=== PATIENT | male | born 1985 | race Caucasian/White ===

== ENCOUNTER 2021-03-02 07:32 | Emergency (ER) | payer BC, OTHER, SELFPAY ==
--- NOTE | ~2021-03-02 | CT_ITS ---
EXAMINATION: CT ABDOMEN AND PELVIS WITH CONTRAST CLINICAL INFORMATION: Left lower quadrant tenderness. COMPARISON: None TECHNIQUE: Multidetector volumetric images were obtained from the superior aspect of the liver through the pubic symphysis following administration 85 mL of Omnipaque 350 intravenous contrast. Sagittal and coronal reformatted images were obtained on the technologist's workstation. Oral contrast: No This CT examination was performed using dose optimization techniques as appropriate, variously including the following: *Automated exposure control *Adjustment of mA and/or kV according to patient size (this includes techniques or standardized protocols for targeted exams where dose is matched to indication/reason for exam; i.e. extremities or head) *Use of iterative reconstruction technique DLP: 861 mGy-cm FINDINGS: LUNG BASES: The lung bases are clear. The heart size is normal. LIVER, GALLBLADDER, AND BILIARY TREE: The liver is normal in size, shape, and decreased attenuation. No focal hepatic lesion or biliary ductal dilatation is present. The gallbladder is unremarkable with no evidence of radiopaque gallstones, gallbladder wall thickening, or obvious pericholecystic inflammatory changes. PANCREAS: Unremarkable. SPLEEN: Unremarkable. ADRENAL GLANDS: Unremarkable. KIDNEYS AND URETERS: The kidneys are normal in size, shape, and attenuation. No hydronephrosis, hydroureter, or calculi seen. No perinephric stranding. BLADDER: The bladder is distended. GASTROINTESTINAL TRACT: There is scattered colonic diverticulosis with mild mural thickening junction of sigmoid and descending colon with pericolic fat stranding most suggestive of diverticulitis. There is no no free air or fluid collection to suspect any perforation. There is no bowel obstruction. There is minimal stool and gas in the right colon. The small bowel loops are normal caliber. The stomach is nondistended and appears unremarkable. The appendix is normal caliber. ABDOMINAL WALL: There is small umbilical hernia containing fat. LYMPH NODES: Normal. VASCULAR: Unremarkable. PELVIC VISCERA: Unremarkable. OSSEOUS STRUCTURES: No lytic or sclerotic process seen CT/CT abdomen pelvis w con IMPRESSION: Scattered colonic diverticulosis with sigmoid/descending colon diverticulitis. No free air, abscess or bowel obstruction seen at this time.
[2021-03-02 07:54] VITALS: BP 146/91; PULSE 99; RESP 16; TEMP 36.9; O2SAT 96; BMI 38.7
--- NOTE | 2021-03-02 08:42 | ED.GENADULT ---
HPI - General Adult General Chief complaint: Abdominal Pain Stated complaint: LOWER ABD PAIN Time Seen by Provider: 03/02/21 08:27 Source: patient Mode of arrival: ambulatory Limitations: no limitations History of Present Illness HPI narrative: 36-year-old male who presents the emergency department for evaluation of left lower quadrant abdominal pain. Patient states that the pain started yesterday morning and was mild. He states that it was an intermittent, dull aching sensation. The pain was initially mild to moderate intensity and the patient had some leftover ciprofloxacin and Flagyl from about a diverticulitis 2 months prior so he took this medication. He states that overnight his pain became worse to the point where pain is now a constant, dull ache, with a burning sensation, worse with movement, and is 8/10. He denied fever, chills, chest pain, shortness of breath. The patient had nausea but no vomiting. He denied any change in his bowel movements. He denied frequency, urgency or dysuria. The patient states this 1st bout of diverticulitis was in 2013, at that time he had a micro perforation was hospitalized for 5 days, they recommended surgery but he elected not have a surgical intervention. He had a 2nd episode of diverticulitis 2 months prior which was treated by his PCP with metronidazole and ciprofloxacin. Related Data Previous Rx's Medication Instructions Recorded morphine 15 mg PO Q4-6H PRN #14 tab 03/02/21 Allergies Allergy/AdvReac Type Severity Reaction Status Date / Time No Known Allergies Allergy Unverified 08/03/20 15:20 [No Known Allergies*] Review of Systems Review of Systems: Yes all other systems are reviewed and are negative [facility] Past Medical History [facility] Narrative: Patient has a history of hypertension which is not treated with medications and hyperlipidemia. He has had no abdominal surgeries. He denies tobacco use. He states that he drinks alcohol on the weekends, he states he will drink anywhere from 3-6 beers per day on the weekends. He denies drug use. Social History Social History Alcohol intake: never Smoking Status: Never smoker Use of substances other than those prescribed or required for medical reasons: No Advance Directives: No Advance Directives Information Provided: No Physical Exam Vital Signs: Vital Signs: Last Vital Signs Temp 98.4 F 03/02/21 08:50 Pulse 82 03/02/21 11:11 Resp 03/02/21 11:11 BP 126/87 03/02/21 11:11 Pulse Ox 98 03/02/21 11:11 Body Mass Index 38.7 Const: General: cooperative and healthy appearing Orientation/consciousness: oriented to person and oriented to place Limitations: no limitations HENMT: Head: Yes normal to inspection, Yes normocephalic and Yes atraumatic Ears: external ears normal General nose exam: Normal external nose present Face and sinus: Yes normal facial exam Mouth: Normal oral and palatal mucosa present Throat: Yes posterior oropharynx normal Eyes: Periorbital: periorbital findings normal Eyelids: Yes eyelids normal Conjunctivae: conjunctivae normal Sclerae: sclerae normal Corneas: corneas normal Pupils: Equal, round and reactive pupils present Direct Ophthalmoscopy: normal light reflex Neck: Neck: Yes full ROM, Yes no lymphadenopathy, Yes no meningeal signs, Yes trachea midline and Yes supple Chest: Chest palpation & inspection: normal inspection of the chest and normal palpation of entire chest wall Resp: Effort & Inspection: normal respiratory effort and able to speak in complete sentences Auscultation: clear to auscultation bilaterally Cardio: Rate: regular rate Rhythm: regular rhythm Heart sounds: S1 normal heart sound present, S2 normal heart sound present and no murmurs GI: Inspection: Yes normal to inspection Palpation (GI): Soft to palpation, Tenderness to palpation present (GI) in the LLQ (Moderate to severe, no rebound), no guarding, not rigid and No hepatosplenomegaly present : General: Yes no CVA tenderness Back/Spine/Pelvis: Back: no CVA tenderness Cervical Spine: normal cervical lordosis Thoracic/Lumbar Spine: thoracic and lumbar spine normal to inspection Skin: Lesions: no lesions Rashes: no rashes Wounds: no wounds Neuro: General: oriented to person, oriented to place and no meningeal signs Cranial nerves: Yes CN's II-XII intact bilaterally and Yes Equal, round and reactive pupils present Cognition (Neuro): normal cognition Motor exam (neuro): 5/5 motor strength present throughout Extrem: General: Yes normal to inspection and Yes full ROM Psych: Appearance: well kempt Mental Status: mental status grossly normal Speech and movement: Normal speech and movement present Affect: normal affect Attitude: cooperative Thought process: Normal thought process present Thought content: Normal thought content present Course Course Course Narrative: 36-year-old male with a history of diverticulitis with microperforation the past who presents the emergency department for evaluation left lower quadrant pain x2 days which got worse yesterday evening and this morning. Physical examination revealed that he was slightly hypertensive with a blood pressure of 146/91 and afebrile. He does have significant left lower quadrant tenderness. I am concerned that he may have a perforation versus abscess. I did order a CBC, CMP, lipase, lactic acid, blood cultures x2. Patient will be treated with normal saline IV x1 L, his pain and nausea be treated with Toradol 30 mg IV and Zofran 4 mg IV. Given my high suspicion for infectious process, the patient will be treated with Levaquin 500 mg IV and Flagyl 500 mg IV. 1154: The patient's laboratory evaluation revealed a [place] [address], CT scan of the abdomen pelvis with IV contrast did not reveal any clear cause for his pain, he does have diverticulosis with no diverticulitis/inflammatory changes. The patient did get some improvement with Toradol but required a dose of morphine 4 mg IV. Patient still has left lower quadrant tenderness. My impression is that the patient does have acute diverticulitis and I will treat him with ciprofloxacin 500 mg twice a day for 10 days and Flagyl 500 mg 3 times a day for 10 days. He is advised to take Tylenol for his pain and for pain not relieved by Tylenol is given a prescription for morphine. He was given verbal and printed instructions on diverticulitis and discharged home. Medical Decision Making Lab Data Result diagrams: 03/02/21 08:46 03/02/21 08:46 Labs: Lab Results 03/02/21 03/02/21 03/02/21 Range/Units 08:46 08:46 08:46 WBC 13.2 H (4.8-10.8) X10*3/uL RBC 4.61 (4.60-5.80) X10*6/uL Hgb 13.5 L (14.0-18.0) g/dl Hct 39.7 L (42-52) % MCV 86.1 (80-98) fL MCH 29.3 (27.0-33.0) pg MCHC 34.0 (31.0-36.0) g/dl RDW 13.2 (11.0-16.0) % Plt Count 273 (160-400) X10*3/uL MPV 9.1 L (9.4-12.4) fL Immature Gran % (Auto) 0.5 H (0.0-0.4) % Neut % (Auto) 80.6 H (45-73) % Lymph % (Auto) 12.8 L (20-40) % [place] % (Auto) 5.2 (2-11) % Eos % (Auto) 0.4 (0-4) % Baso % (Auto) 0.5 (0-2) % Lymph # (Auto) 1.7 (1.2-4.9) X10*3/uL [place] # (Auto) 0.7 (0.1-1.2) X10*3/uL Eos # (Auto) 0.1 (0.0-0.4) X10*3/uL Baso # (Auto) 0.1 (0.0-0.2) X10*3/uL Abs Immat Gran (auto) 0.06 H (0.00-0.03) X10*3/uL Absolute Neuts (auto) 10.7 H (2.0-8.3) X10*3/uL Absolute Nucleated RBC 0.000 (0.0-0.012) X10*3/uL Nucleated RBC % (auto) 0.0 (0.0-0.2) /100WBC PT 12.5 (10.8-13.0) SEC INR 1.1 (0.9-1.1) APTT 42.8 H (24.1-38.0) SEC Sodium 140 (135-145) mmol/L Potassium 4.3 (3.3-5.1) mmol/L Chloride 106 (96-108) mmol/L Carbon Dioxide 27 (22-29) mmol/L Anion Gap 11 L (12-20) BUN 13 (9-16) mg/dL Creatinine 0.96 (0.5-1.4) mg/dL Estim Creat Clear Calc 120.7 Estimated GFR > 60 Random Glucose 104 (60-115) mg/dL Lactic Acid (0.5-2.0) mmol/L Calcium 9.2 (8.4-10.2) mg/dL Total Bilirubin 0.6 (0.0-1.0) mg/dL AST 26 (5-37) U/L ALT 60 H (0-40) U/L Alkaline Phosphatase 50 (39-117) U/L Total Protein 7.3 (6.5-8.0) g/dL Albumin 4.4 (3.5-5.0) g/dL Lipase 28 (8-78) U/L Urine Color Urine Appearance Urine pH (5.0-8.0) Ur Specific [place] (1.005-1.025) Urine Protein (NEG-TRACE) MG/DL Urine Glucose (UA) (NEG) MG/DL Urine Ketones (NEG) MG/DL Urine Blood (NEG) Urine Nitrite (NEG) Ur Leukocyte Esterase (NEG) COVID-19 ([facility]) (Negative) COVID-19 Clin Com 03/02/21 03/02/21 03/02/21 Range/Units 08:46 08:52 10:17 WBC (4.8-10.8) X10*3/uL RBC (4.60-5.80) X10*6/uL Hgb (14.0-18.0) g/dl Hct (42-52) % MCV (80-98) fL MCH (27.0-33.0) pg MCHC (31.0-36.0) g/dl RDW (11.0-16.0) % Plt Count (160-400) X10*3/uL MPV (9.4-12.4) fL Immature Gran % (Auto) (0.0-0.4) % Neut % (Auto) (45-73) % Lymph % (Auto) (20-40) % [place] % (Auto) (2-11) % Eos % (Auto) (0-4) % Baso % (Auto) (0-2) % Lymph # (Auto) (1.2-4.9) X10*3/uL [place] # (Auto) (0.1-1.2) X10*3/uL Eos # (Auto) (0.0-0.4) X10*3/uL Baso # (Auto) (0.0-0.2) X10*3/uL Abs Immat Gran (auto) (0.00-0.03) X10*3/uL Absolute Neuts (auto) (2.0-8.3) X10*3/uL Absolute Nucleated RBC (0.0-0.012) X10*3/uL Nucleated RBC % (auto) (0.0-0.2) /100WBC PT (10.8-13.0) SEC INR (0.9-1.1) APTT (24.1-38.0) SEC Sodium (135-145) mmol/L Potassium (3.3-5.1) mmol/L Chloride (96-108) mmol/L Carbon Dioxide (22-29) mmol/L Anion Gap (12-20) BUN (9-16) mg/dL Creatinine (0.5-1.4) mg/dL Estim Creat Clear Calc Estimated GFR Random Glucose (60-115) mg/dL Lactic Acid 1.2 (0.5-2.0) mmol/L Calcium (8.4-10.2) mg/dL Total Bilirubin (0.0-1.0) mg/dL AST (5-37) U/L ALT (0-40) U/L Alkaline Phosphatase (39-117) U/L Total Protein (6.5-8.0) g/dL Albumin (3.5-5.0) g/dL Lipase (8-78) U/L Urine Color YELLOW Urine Appearance CLEAR Urine pH 6.0 (5.0-8.0) Ur Specific [place] 1.020 (1.005-1.025) Urine Protein NEG (NEG-TRACE) MG/DL Urine Glucose (UA) NEG (NEG) MG/DL Urine Ketones NEG (NEG) MG/DL Urine Blood NEG (NEG) Urine Nitrite NEG (NEG) Ur Leukocyte Esterase NEG (NEG) COVID-19 ([facility]) Negative (Negative) COVID-19 Clin Com See Note Discharge Plan Discharge Clinical Impression: Diverticulitis Patient Disposition: Home, Self-Care Instructions: Diverticulitis (ED) Additional Instructions: Your laboratory evaluation revealed a slight elevation in the white blood cell count otherwise was unremarkable. The CT scan of your abdomen pelvis with IV contrast did not reveal any clear evidence for diverticulitis, you do have diverticulosis. Given your presentation, your physical examination and the fact that she has had diverticulitis in the past, I believe that you symptoms are consistent with diverticulitis despite the negative CT scan. I am going to treat you with 2 antibiotics. Take ciprofloxacin 500 mg, 1 pill every 12 hours for 10 days. Take Flagyl (metronidazole) 500 mg, 1 pill every 6 hours while awake (3 times a day) for 10 days. Take Tylenol (acetaminophen) 500 mg pills, 2 pills every 4 to 6 hours as needed for pain. For pain not relieved by Tylenol take morphine 15 mg pills, 1 pill every 4 hours as needed for pain. Morphine is a narcotic medication. This can cause sleepiness, do not drive or work while taking this medication. Narcotic medications can be addicting, if your concerned about addiction do not get this medication filled or you can ask the pharmacist for less pills than prescribed. Follow-up with your doctor in 2 days. Please return to the emergency department if your symptoms get worse or if you develop any symptoms that are concerning to you. Prescriptions: New morphine 15 mg tablet 15 mg PO Q4-6H PRN (Reason: pain) Qty: 14 RF: 0
[2021-03-02 08:50] VITALS: BP 146/91; PULSE 99; RESP 16; TEMP 36.9; O2SAT 96
[2021-03-02 08:51] LABS: MANUAL DIFF FLAG NO
[2021-03-02 08:58] LABS: INTERNATIONAL NORM RATIO 1.1 (0.9-1.1); Prothrombin Time 12.5 SEC (10.8-13.0)
[2021-03-02] MEDS: Ketorolac Tromethamine 30 MG/ML VIAL IVPUSH (09:01)
[2021-03-02] MEDS: levoFLOXacin/D5W 750 MG/150 ML PIGGYBACK 100 MG IV (09:02)
[2021-03-02] MEDS: ondansetron HCL 4 MG/2 ML VIAL IVPUSH (09:02)
[2021-03-02] MEDS: 0.9 % Sodium Chloride 1,000 ML 999 ML IV (09:02)
[2021-03-02 09:08] LABS: Lactic Acid 1.2 mmol/L (0.5-2.0)
[2021-03-02 09:09] LABS: Basophils Absolute Auto 0.1 X10*3/uL (0.0-0.2); Basophils Percent Auto 0.5 % (0-2); Eosinophils Absolute Auto 0.1 X10*3/uL (0.0-0.4); Eosinophils Percent Auto 0.4 % (0-4); Hematocrit 39.7 % (42-52); Hemoglobin 13.5 g/dl (14.0-18.0); Imm Gran Abs Auto 0.06 X10*3/uL (0.00-0.03); Imm Gran Pct Auto 0.5 % (0.0-0.4); Lymphocytes Absolute Auto 1.7 X10*3/uL (1.2-4.9); Lymphocytes Percent Auto 12.8 % (20-40); Mean Corpuscular Hemoglobin 29.3 pg (27.0-33.0); Mean Corpuscular Volume 86.1 fL (80-98); Mean Platelet Volume 9.1 fL (9.4-12.4); Monocytes Absolute Auto 0.7 X10*3/uL (0.1-1.2); Monocytes Percent Auto 5.2 % (2-11); Neutrophils Absolute Auto 10.7 X10*3/uL (2.0-8.3); Neutrophils Percent Auto 80.6 % (45-73); Platelet Count 273 X10*3/uL (160-400); Red Blood Count 4.61 X10*6/uL (4.60-5.80); Red Cell Distribution Width 13.2 % (11.0-16.0); White Blood Count 13.2 X10*3/uL (4.8-10.8)
[2021-03-02 09:11] LABS: Partial Thromboplastin Time 42.8 SEC (24.1-38.0)
[2021-03-02 09:14] LABS: Alanine Aminotransferase 60 U/L (0-40); Albumin Level 4.4 g/dL (3.5-5.0); Alkaline Phosphatase 50 U/L (39-117); Anion Gap 11 (12-20); Aspartate Amino Transferase 26 U/L (5-37); Bilirubin Total 0.6 mg/dL (0.0-1.0); Blood Urea Nitrogen 13 mg/dL (9-16); Calcium 9.2 mg/dL (8.4-10.2); Carbon Dioxide 27 mmol/L (22-29); Chloride 106 mmol/L (96-108); Creatinine Clr Calc Pharmacy 120.7; Estimated Glomerular Filt Rate > 60; Glucose Random 104 mg/dL (60-115); Potassium 4.3 mmol/L (3.3-5.1); Sodium 140 mmol/L (135-145); Total Protein 7.3 g/dL (6.5-8.0)
[2021-03-02 09:31] LABS: COVID-19 Test Negative (Negative)
[2021-03-02] MEDS: iohexoL 350 MG/ML 100 ML INFUS..BTL IV (09:58)
[2021-03-02] MEDS: Morphine Sulfate 4 MG/ML CARTRIDGE IVPUSH (10:13)
[2021-03-02 10:24] LABS: Glucose Urine UA NEG (NEG); Leukocyte Esterase Urine NEG (NEG); Nitrite Urine NEG (NEG); Urine Blood NEG (NEG); Urine Ketones NEG (NEG); Urine Protein NEG (NEG-TRACE)
[2021-03-02 10:26] LABS: Appearance Urine CLEAR; Color Urine YELLOW
[2021-03-02 10:41] LABS: Lipase 28 U/L (8-78)
[2021-03-02] MEDS: metroNIDAZOLE/NS 500 MG/100 ML PIGGYBACK 100 MG IV (11:05)
[2021-03-02 11:09] VITALS: BP 126/87; PULSE 82; RESP 16
[2021-03-02 11:11] VITALS: BP 126/87; PULSE 82; RESP 16; O2SAT 98
== END 2021-03-02 12:32 | disposition home or self-care (01) ==
PROVIDERS: Emergency Provider Emergency Medicine Emergency Medical Services; PCP Family Medicine
DX: K57.32 Diverticulitis of large intestine without perforation or abscess without bleeding (principal); R10.32 Left lower quadrant pain; Z79.899 Other long term (current) drug therapy; Z20.822 Contact with and (suspected) exposure to COVID-19
CPT/HCPCS: 36415; 74177; 80053; 81003; 83605; 83690; 85025; 85610; 85730; 87040; 87635; 96365; 96375; 99284; J1885; J1956; J2270; J2405; Q9967

== ENCOUNTER 2021-04-27 09:01 | Outpatient (REF) | payer BC, SELFPAY ==
[2021-04-27 11:18] LABS: MANUAL DIFF FLAG NO
[2021-04-27 11:30] LABS: Basophils Absolute Auto 0.1 X10*3/uL (0.0-0.2); Eosinophils Absolute Auto 0.2 X10*3/uL (0.0-0.4); Eosinophils Percent Auto 2.2 % (0-4); Hemoglobin 14.2 g/dl (14.0-18.0); Imm Gran Abs Auto 0.04 X10*3/uL (0.00-0.03); Imm Gran Pct Auto 0.5 % (0.0-0.4); Lymphocytes Absolute Auto 2.8 X10*3/uL (1.2-4.9); Lymphocytes Percent Auto 33.3 % (20-40); Mean Corpuscular Hemoglobin 28.8 pg (27.0-33.0); Mean Corpuscular Volume 87.2 fL (80-98); Mean Platelet Volume 9.5 fL (9.4-12.4); Monocytes Absolute Auto 0.7 X10*3/uL (0.1-1.2); Monocytes Percent Auto 7.8 % (2-11); Neutrophils Absolute Auto 4.6 X10*3/uL (2.0-8.3); Neutrophils Percent Auto 55.2 % (45-73); Platelet Count 304 X10*3/uL (160-400); Red Blood Count 4.93 X10*6/uL (4.60-5.80); Red Cell Distribution Width 13.4 % (11.0-16.0); White Blood Count 8.3 X10*3/uL (4.8-10.8)
[2021-04-27 12:33] LABS: TSH reflex Free T4 1.27 uIU/mL (0.32-4.0)
[2021-04-27 13:05] LABS: Alanine Aminotransferase 77 U/L (0-40); Albumin Level 4.4 g/dL (3.5-5.0); Alkaline Phosphatase 54 U/L (39-117); Anion Gap 12 (12-20); Aspartate Amino Transferase 40 U/L (5-37); Bilirubin Total 0.7 mg/dL (0.0-1.0); Blood Urea Nitrogen 13 mg/dL (9-16); Calcium 9.1 mg/dL (8.4-10.2); Carbon Dioxide 28 mmol/L (22-29); Chloride 107 mmol/L (96-108); Estimated Glomerular Filt Rate > 60; Glucose Fasting 81 mg/dL (60-99); Lipase 17 U/L (8-78); Potassium 4.4 mmol/L (3.3-5.1); Sodium 143 mmol/L (135-145); Total Protein 7.3 g/dL (6.5-8.0)
[2021-05-01 13:17] LABS: Vitamin D 25-OH, D2 <4 ng/mL; Vitamin D 25-OH, D3 20 ng/mL; Vitamin D 25-OH, Total 20 ng/mL (30-100)
== END 2021-04-27 09:02 | disposition home or self-care (01) ==
LOC: HO.HMGCLDS 09:01
PROVIDERS: PCP Internal Medicine; Visit Provider Internal Medicine
DX: E66.01 Morbid (severe) obesity due to excess calories (principal); K57.90 Diverticulosis of intestine, part unspecified, without perforation or abscess without bleeding; Z76.89 Persons encountering health services in other specified circumstances
CPT/HCPCS: 36415; 80053; 82306; 83690; 84443; 85025

== ENCOUNTER 2021-05-10 14:30 | Outpatient (REF) | payer BC, SELFPAY ==
[2021-05-10 16:34] LABS: Erythrocyte Sedimentation Rate 13 MM/HR (0-15); Thyroid Stimulating Hormone 0.97 uIU/mL (0.32-4.0)
[2021-05-14 13:51] LABS: Transglutaminase IgA 1 U/mL
[2021-05-18 11:07] LABS: Endomysial IgA Antibody Negative (Negative)
== END 2021-05-10 14:31 | disposition home or self-care (01) ==
LOC: HO.LAB 14:30
PROVIDERS: PCP Internal Medicine; Referring Provider Internal Medicine; Visit Provider Physician Assistant
DX: K57.90 Diverticulosis of intestine, part unspecified, without perforation or abscess without bleeding (principal); K52.9 Noninfective gastroenteritis and colitis, unspecified; K59.09 Other constipation
CPT/HCPCS: 36415; 83516; 84443; 85652; 86140; 86255; 86256

== ENCOUNTER 2021-05-11 14:21 | Outpatient (REF) | payer BC, SELFPAY ==
[2021-05-11 15:15] LABS: CDiff Gene PCR NEGATIVE (Negative)
[2021-05-18 00:37] LABS: Calprotectin, Fecal 23 mcg/g
== END 2021-05-11 14:22 | disposition home or self-care (01) ==
LOC: HO.LNP 14:21
PROVIDERS: Visit Provider Physician Assistant
DX: R19.7 Diarrhea, unspecified (principal)
CPT/HCPCS: 83993; 87045; 87046; 87329; 87493

== ENCOUNTER 2021-09-23 20:42 | Inpatient (IN) | payer BC, SELFPAY ==
--- NOTE | 2021-09-23 | ECG_ITS ---
Test Reason : CP Blood Pressure : / mmHG Vent. Rate : 109 BPM Atrial Rate : 109 BPM P-R Int : 104 ms QRS Dur : 102 ms QT Int : 336 ms P-R-T Axes : 048 -40 042 degrees QTc Int : 452 ms Sinus tachycardia with short CA Left axis deviation RSR' or QR pattern in V1 suggests right ventricular conduction delay Abnormal ECG No previous ECGs available Referred By: Damian Goodwin Electronically Signed By:DARCY VALERIO MD
--- NOTE | ~2021-09-23 | CT_ITS ---
EXAMINATION: CT ABDOMEN AND PELVIS WITH CONTRAST CLINICAL INFORMATION: Left lower quadrant pain. History of diverticulitis. COMPARISON: CT abdomen/pelvis dated from 03/02/2021. TECHNIQUE: Multidetector volumetric images were obtained from the superior aspect of the liver through the pubic symphysis following administration 85 mL of Omnipaque 350 intravenous contrast. Sagittal and coronal reformatted images were obtained on the technologist's workstation. Oral contrast: No This CT examination was performed using dose optimization techniques as appropriate, variously including the following: *Automated exposure control *Adjustment of mA and/or kV according to patient size (this includes techniques or standardized protocols for targeted exams where dose is matched to indication/reason for exam; i.e. extremities or head) *Use of iterative reconstruction technique DLP: 783 mGy-cm FINDINGS: LUNG BASES: The visualized lung bases are unremarkable. LIVER, GALLBLADDER, AND BILIARY TREE: There is diffuse decreased hepatic parenchymal attenuation most consistent with hepatic steatosis. Otherwise, the liver is normal in size and shape without focal abnormalities. Normal appearance of the gallbladder. No biliary ductal dilatation. PANCREAS: Unremarkable. SPLEEN: Unremarkable. ADRENAL GLANDS: Unremarkable. KIDNEYS AND URETERS: The kidneys are normal in size, shape, and attenuation. No hydronephrosis, hydroureter, or calculi seen. No perinephric stranding. BLADDER: Unremarkable. GASTROINTESTINAL TRACT: The stomach and the small bowel are nondilated. There is a normal appendix. There is wall thickening and significant inflammatory changes within the sigmoid colon centered around several diverticuli, most consistent with acute diverticulitis. No drainable collections or abscess formation at this time. No bowel obstruction. ABDOMINAL WALL: No significant hernia is appreciated. LYMPH NODES: No lymphadenopathy by size criteria. VASCULAR: Scattered atherosclerotic disease. The abdominal aorta is of normal diameter. PELVIC VISCERA: Unremarkable. OSSEOUS STRUCTURES: No acute or aggressive osseous abnormalities. CT/CT abdomen pelvis w con IMPRESSION: Severe acute diverticulitis of the sigmoid colon. No complications such as drainable collection, abscess formation or pneumoperitoneum. Hepatic steatosis.
[2021-09-23 21:00] VITALS: BP 151/99; PULSE 118; RESP 20; TEMP 36.9; O2SAT 96; BMI 40.3
[2021-09-23 21:24] VITALS: BP 151/86; PULSE 110; RESP 15; TEMP 38; O2SAT 96
--- NOTE | 2021-09-23 21:27 | ED.ABDPAIN ---
HPI - Abdominal Pain General Chief Complaint: Abdominal Pain Stated Complaint: Diverticulitis? Time Seen by Provider: 09/23/21 21:27 Source: patient Mode of arrival: ambulatory Limitations: no limitations History of Present Illness HPI narrative: Patient with history of diverticulitis in the past with history of perforation in 2014 last episode was in 03/07 comes here for left lower quadrant pain since afternoon today similar in the past with poor appetite no fever no chills no diarrhea no blood in the stool patient does not feel hungry, no fever no chills Related Data Previous Rx's Medication Instructions Recorded famotidine 40 mg tablet (Pepcid) 40 mg PO BEDTIME #30 tab 07/20/21 omeprazole 40 mg capsule,delayed 40 mg PO DAILY #30 cap 07/20/21 release hydroxyzine HCl 10 mg tablet 10 mg PO ONCE PRN 90 Days #90 tab 08/14/21 Allergies Allergy/AdvReac Type Severity Reaction Status Date / Time No Known Allergies Allergy Verified 07/27/21 16:02 [No Known Allergies*] Review of Systems Review of Systems Yes all other systems are reviewed and are negative Physical Exam Vital Signs: Vital Signs: Last Vital Signs Temp 100.4 F 09/23/21 21:24 Pulse 101 H 09/24/21 00:00 Resp 21 H 09/24/21 00:00 BP 133/77 09/24/21 00:00 Pulse Ox 96 09/24/21 00:00 Body Mass Index 40.3 Appearance: Alert. Oriented X3. No acute distress. Eyes: No pallor or icterus ENT: Pharynx normal. Oral Mucosa moist Neck: Normal inspection. Neck supple. CVS: Normal heart rate and rhythm. Pulses normal. Respiratory: No respiratory distress. Equal air entry bilateral, no wheezing/rales/rhonchi Abdomen: Soft , tenderness in left lower quadrant with guarding no rebound tenderness Bowel sounds are present, no mass palpable, no CVA tenderness Skin: Skin warm and dry. Normal skin color. Normal skin turgor. Extremities: No lower extremity edema. No calf tenderness Neuro: Oriented X 3. MDM - Abdominal Pain MDM Narrative Medical decision making narrative: Patient with uncomplicated sigmoid diverticulitis with leukocytosis will admit patient for IV fluids and IV antibiotics Medical Records Attestation: I reviewed the patient's medical records. Lab Data Attestation: I reviewed the patient's lab results. Result diagrams: 09/23/21 21:55 09/23/21 21:55 Labs: Lab Results 09/23/21 09/23/21 09/23/21 Range/Units 21:55 21:55 21:55 WBC 17.8 H (4.8-10.8) X10*3/uL RBC 4.58 L (4.60-5.80) X10*6/uL Hgb 13.5 L (14.0-18.0) g/dl Hct 39.2 L (42.0-52.0) % MCV 85.6 (80.0-98.0) fL MCH 29.5 (27.0-33.0) pg MCHC 34.4 (31.0-36.0) g/dl RDW 12.7 (11.0-16.0) % Plt Count 297 (160-400) X10*3/uL MPV 9.2 L (9.4-12.4) fL Immature Gran % (Auto) 0.3 (0.0-0.4) % Neut % (Auto) 82.8 H (45-73) % Lymph % (Auto) 10.6 L (20-40) % [place] % (Auto) 5.5 (2-11) % Eos % (Auto) 0.4 (0-4) % Baso % (Auto) 0.4 (0-2) % Lymph # (Auto) 1.9 (1.2-4.9) X10*3/uL [place] # (Auto) 1.0 (0.1-1.2) X10*3/uL Eos # (Auto) 0.1 (0.0-0.4) X10*3/uL Baso # (Auto) 0.1 (0.0-0.2) X10*3/uL Abs Immat Gran (auto) 0.06 H (0.00-0.03) X10*3/uL Absolute Neuts (auto) 14.7 H (2.0-8.3) x10*3/uL Absolute Nucleated RBC 0.000 (0.0-0.012) X10*3/uL Nucleated RBC % (auto) 0.0 (0.0-0.2) /100WBC Sodium 138 (135-145) mmol/L Potassium 4.3 (3.3-5.1) mmol/L Chloride 105 (96-108) mmol/L Carbon Dioxide 25 (22-29) mmol/L Anion Gap 12 (12-20) BUN 11 (9-16) mg/dL Creatinine 1.06 (0.5-1.4) mg/dL Estim Creat Clear Calc 111.7 Estimated GFR > 60 Random Glucose 117 H (60-115) mg/dL Lactic Acid 1.3 (0.5-2.0) mmol/L Calcium 9.1 (8.4-10.2) mg/dL Total Bilirubin 0.8 (0.0-1.0) mg/dL Direct Bilirubin 0.3 (0.0-0.5) mg/dL AST 22 D (5-37) U/L ALT 47 H (0-40) U/L Alkaline Phosphatase 61 (39-117) U/L Total Protein 7.2 (6.5-8.0) g/dL Albumin 4.4 (3.5-5.0) g/dL COVID-19 ([facility]) (Negative) COVID-19 Clin Com 09/23/21 Range/Units 21:55 WBC (4.8-10.8) X10*3/uL RBC (4.60-5.80) X10*6/uL Hgb (14.0-18.0) g/dl Hct (42.0-52.0) % MCV (80.0-98.0) fL MCH (27.0-33.0) pg MCHC (31.0-36.0) g/dl RDW (11.0-16.0) % Plt Count (160-400) X10*3/uL MPV (9.4-12.4) fL Immature Gran % (Auto) (0.0-0.4) % Neut % (Auto) (45-73) % Lymph % (Auto) (20-40) % [place] % (Auto) (2-11) % Eos % (Auto) (0-4) % Baso % (Auto) (0-2) % Lymph # (Auto) (1.2-4.9) X10*3/uL [place] # (Auto) (0.1-1.2) X10*3/uL Eos # (Auto) (0.0-0.4) X10*3/uL Baso # (Auto) (0.0-0.2) X10*3/uL Abs Immat Gran (auto) (0.00-0.03) X10*3/uL Absolute Neuts (auto) (2.0-8.3) x10*3/uL Absolute Nucleated RBC (0.0-0.012) X10*3/uL Nucleated RBC % (auto) (0.0-0.2) /100WBC Sodium (135-145) mmol/L Potassium (3.3-5.1) mmol/L Chloride (96-108) mmol/L Carbon Dioxide (22-29) mmol/L Anion Gap (12-20) BUN (9-16) mg/dL Creatinine (0.5-1.4) mg/dL Estim Creat Clear Calc Estimated GFR Random Glucose (60-115) mg/dL Lactic Acid (0.5-2.0) mmol/L Calcium (8.4-10.2) mg/dL Total Bilirubin (0.0-1.0) mg/dL Direct Bilirubin (0.0-0.5) mg/dL AST (5-37) U/L ALT (0-40) U/L Alkaline Phosphatase (39-117) U/L Total Protein (6.5-8.0) g/dL Albumin (3.5-5.0) g/dL COVID-19 ([facility]) Negative (Negative) COVID-19 Clin Com See Note Discharge Plan Discharge Clinical Impression: Diverticulitis Patient Disposition: Admitted As Inpatient [facility] Past Medical History Medical History Anxiety GERD (gastroesophageal reflux disease) Surgical History History of medial meniscus repair of left knee History of tonsillectomy and adenoidectomy Family History Family History Father History of heart disease Mother History of lung cancer Hx of breast cancer History of skin cancer Social History Social History Household Members Other:: 2 kids Are you a primary career and transition teacher to a significant other at home: No Do you presently have visiting nurse or other home services: No Alcohol intake: current Alcohol intake frequency: holidays/special occasions only Patient Tobacco Use Status: Never used Tobacco Use of substances other than those prescribed or required for medical reasons: No Advance Directives: No Advance Directives Information Provided: No service: Yes Current occupational status: employed Current occupation: [employer]
[2021-09-23 22:05] LABS: MANUAL DIFF FLAG NO
[2021-09-23 22:08] LABS: Basophils Absolute Auto 0.1 X10*3/uL (0.0-0.2); Basophils Percent Auto 0.4 % (0-2); Eosinophils Absolute Auto 0.1 X10*3/uL (0.0-0.4); Eosinophils Percent Auto 0.4 % (0-4); Hematocrit 39.2 % (42.0-52.0); Hemoglobin 13.5 g/dl (14.0-18.0); Imm Gran Abs Auto 0.06 X10*3/uL (0.00-0.03); Imm Gran Pct Auto 0.3 % (0.0-0.4); Lymphocytes Absolute Auto 1.9 X10*3/uL (1.2-4.9); Lymphocytes Percent Auto 10.6 % (20-40); Mean Corpuscular HGB Conc 34.4 g/dl (31.0-36.0); Mean Corpuscular Hemoglobin 29.5 pg (27.0-33.0); Mean Corpuscular Volume 85.6 fL (80.0-98.0); Mean Platelet Volume 9.2 fL (9.4-12.4); Monocytes Percent Auto 5.5 % (2-11); Neutrophils Absolute Auto 14.7 x10*3/uL (2.0-8.3); Neutrophils Percent Auto 82.8 % (45-73); Platelet Count 297 X10*3/uL (160-400); Red Blood Count 4.58 X10*6/uL (4.60-5.80); Red Cell Distribution Width 12.7 % (11.0-16.0); White Blood Count 17.8 X10*3/uL (4.8-10.8)
[2021-09-23] MEDS: 0.9 % Sodium Chloride 1,000 ML 999 ML IVCONT (22:08)
[2021-09-23] MEDS: ondansetron HCL 4 MG/2 ML VIAL IVPUSH (22:08)
[2021-09-23 22:10] VITALS: RESP 14
[2021-09-23] MEDS: Morphine Sulfate 4 MG/ML CARTRIDGE IVPUSH (22:10)
[2021-09-23 22:18] LABS: Lactic Acid 1.3 mmol/L (0.5-2.0)
[2021-09-23 22:23] LABS: Alanine Aminotransferase 47 U/L (0-40); Albumin Level 4.4 g/dL (3.5-5.0); Alkaline Phosphatase 61 U/L (39-117); Anion Gap 12 (12-20); Aspartate Amino Transferase 22 U/L (5-37); Bilirubin Direct 0.3 mg/dL (0.0-0.5); Bilirubin Total 0.8 mg/dL (0.0-1.0); Blood Urea Nitrogen 11 mg/dL (9-16); Calcium 9.1 mg/dL (8.4-10.2); Carbon Dioxide 25 mmol/L (22-29); Chloride 105 mmol/L (96-108); Creatinine Clr Calc Pharmacy 111.7; Estimated Glomerular Filt Rate > 60; Glucose Random 117 mg/dL (60-115); Potassium 4.3 mmol/L (3.3-5.1); Sodium 138 mmol/L (135-145); Total Protein 7.2 g/dL (6.5-8.0)
[2021-09-23 22:28] LABS: COVID-19 Test Negative (Negative); IDNOW Serial# 08D9AD1C
[2021-09-23] MEDS: metroNIDAZOLE/NS 500 MG/100 ML PIGGYBACK 100 MG IV (23:00)
[2021-09-23] MEDS: levoFLOXacin/D5W 500 MG/100 ML PIGGYBACK 100 MG IV (23:00)
[2021-09-23] MEDS: iohexoL 350 MG/ML 100 ML INFUS..BTL 85 ML IV (23:35)
[2021-09-24] VITALS (7 sets, daily range): BP systolic 106–146; BP diastolic 53–83; PULSE 85–101; RESP 14–21; TEMP 37.3; O2SAT 95–96
--- NOTE | 2021-09-24 00:38 | P.HPHOSP_ITS ---
History of Present Illness Date of Service: 09/24/21 Chief Complaint: Abdominal pain 28-year-old male with past medical history of perforated diverticulitis, GERD, anxiety, who presents to the hospital with complaints of left-sided abdominal pain radiating to the rest of the abdomen, the pain started the day of arrival to the ED, 08/26, constant, no relieving factors, sharp. Pain is associated with nausea with no vomiting, and constipation. Patient denies any shortness of breath, no headache or change in vision, no chest pain, no urinary symptoms and no lower extremity edema. Stable with a temp of 98.4?, heart rate of 118, respiratory rate of 20, blood pressure 151/99, satting 96% on room air Labs are significant for WBC count 17.8, hemoglobin of 13.5 with hematocrit 39.2, left shift, CMP otherwise unremarkable Abdominal CT shows severe acute diverticulitis of the sigmoid colon, no complications such as drainable collection, abscess formation or pneumoperitoneum Patient started on antibiotic and will be admitted further manage Review of Systems Review of Systems: Yes all other systems are reviewed and are negative COUNTS INCLUDE 234 BEDS AT THE [facility] Medical History Anxiety GERD (gastroesophageal reflux disease) Family History Father History of heart disease Mother History of lung cancer Hx of breast cancer History of skin cancer Surgical History History of medial meniscus repair of left knee History of tonsillectomy and adenoidectomy Social History Household Members Other:: 2 kids Are you a primary behavioral health care coordinator to a significant other at home: No Do you presently have visiting nurse or other home services: No Alcohol intake: current Alcohol intake frequency: holidays/special occasions only Patient Tobacco Use Status: Never used Tobacco Use of substances other than those prescribed or required for medical reasons: No Advance Directives: No Advance Directives Information Provided: No service: Yes Current occupational status: employed Current occupation: [employer] Allergies Allergy/AdvReac Type Severity Reaction Status Date / Time No Known Allergies Allergy Verified 07/27/21 16:02 [No Known Allergies*] Active Medications: Current Medications Sodium Chloride (Ns) 1,000 mls @ 999 mls/hr IVCONT .Q1H1M [facility] Stop: 09/24/21 01:30 Physical Exam Vital Signs and Narrative: Vital Signs: Last Vital Signs Temp 100.4 F 09/23/21 21:24 Pulse 101 H 09/24/21 00:00 Resp 21 H 09/24/21 00:00 BP 133/77 09/24/21 00:00 Pulse Ox 96 09/24/21 00:00 Body Mass Index 40.3 Const: General: cooperative and no acute distress Orientation/consciousnes s: patient oriented x3 Eyes: General: appearance normal, both eyes and all related structures Pupils: Equal, round and reactive pupils present Resp: Effort & Inspection: normal respiratory effort Auscultation: clear to auscultation bilaterally Cardio: Rate: regular rate Rhythm: regular rhythm GI: Other: Tender in the left lower quadrant, some guarding Palpation (GI): Soft to palpation Auscultation: normal bowel sounds Skin: General skin exam: no rashes or lesions noted Neuro: General: patient oriented x3 Cranial nerves: Yes Equal, round and reactive pupils present Cognition (Neuro): normal cognition Extrem: General: Yes normal to inspection and Yes no pedal edema Results Labs CBC and Chem 7: 09/23/21 21:55 09/23/21 21:55 Labs: Laboratory Results - last 24 hr 09/23/21 09/23/21 09/23/21 21:55 21:55 21:55 MCV 85.6 MCH 29.5 MCHC 34.4 RDW 12.7 Plt Count 297 MPV 9.2 L Immature Gran % (Auto) 0.3 Neut % (Auto) 82.8 H Lymph % (Auto) 10.6 L [place] % (Auto) 5.5 Eos % (Auto) 0.4 Baso % (Auto) 0.4 Lymph # (Auto) 1.9 [place] # (Auto) 1.0 Eos # (Auto) 0.1 Baso # (Auto) 0.1 Abs Immat Gran (auto) 0.06 H Absolute Neuts (auto) 14.7 H Absolute Nucleated RBC 0.000 Nucleated RBC % (auto) 0.0 Anion Gap 12 Estim Creat Clear Calc 111.7 Estimated GFR > 60 Random Glucose 117 H Lactic Acid 1.3 Calcium 9.1 Total Bilirubin 0.8 Direct Bilirubin 0.3 AST 22 D ALT 47 H Alkaline Phosphatase 61 Total Protein 7.2 Albumin 4.4 COVID-19 ([facility]) COVID-19 Clin Com 09/23/21 21:55 MCV MCH MCHC RDW Plt Count MPV Immature Gran % (Auto) Neut % (Auto) Lymph % (Auto) Miller % (Auto) Eos % (Auto) Baso % (Auto) Lymph # (Auto) [place] # (Auto) Eos # (Auto) Baso # (Auto) Abs Immat Gran (auto) Absolute Neuts (auto) Absolute Nucleated RBC Nucleated RBC % (auto) Anion Gap Estim Creat Clear Calc Estimated GFR Random Glucose Lactic Acid Calcium Total Bilirubin Direct Bilirubin AST ALT Alkaline Phosphatase Total Protein Albumin COVID-19 ([facility]) Negative COVID-19 Clin Com See Note Imaging Radiologist's Impressions: Impressions Abdomen/Pelvis CT 09/23/21 21:34 IMPRESSION: Severe acute diverticulitis of the sigmoid colon. No complications such as drainable collection, abscess formation or pneumoperitoneum. Hepatic steatosis. Assessment and Plan (1) Acute diverticulitis: Status: Acute (2) Abdominal pain: Status: Acute 36-year-old male with past medical history of diverticulitis presents to the hospital with complaints of abdominal pain found to have uncomplicated diverticula # uncomplicated diverticulitis - started on IV antibiotic - no evidence of drainable collection, abscess formation or pneumoperitoneum -pain control - follow cultures - will hold off on consulting general surgery at this time unless patient's pain or clinical picture worsened # abdominal pain - secondary to above - start pain control - IV antibiotic # history of GERD - continue Pepcid # anxiety - continue hydroxyzine DVT prophylaxis: Lovenox Quality Stroke Does the patient have a stroke diagnosis?: No VTE Prior VTE?: No VTE Risk Level:: Medical - moderate - high VTE Device Contraindication: Treatment Not Indicated VTE Drug Contraindication: N/A - Med Ordered
[2021-09-24] MEDS: Magnesium Hydrox/Alum Hydrox 30 ML ORAL.SUSP PO (00:43)
[2021-09-24] MEDS: Morphine Sulfate 4 MG/ML CARTRIDGE IVPUSH ×4 (00:43→18:09)
[2021-09-24] MEDS: Famotidine/PF 20 MG/2 ML VIAL IVPUSH (00:43)
[2021-09-24] MEDS: 0.9 % Sodium Chloride 1,000 ML 999 ML IVCONT (00:48)
[2021-09-24] MEDS: ondansetron HCL 4 MG/2 ML VIAL IVPUSH (02:42)
[2021-09-24] MEDS: HYDROmorphone HCl 0.5 MG/0.5 ML SYRINGE IVPUSH (02:42)
[2021-09-24] MEDS: Enoxaparin Sodium 40 MG/0.4 ML SYRINGE SUBCUT (02:45)
[2021-09-24] MEDS: Omeprazole 40 MG CAPSULE.DR PO (06:14)
[2021-09-24] MEDS: metroNIDAZOLE/NS 500 MG/100 ML PIGGYBACK 100 MG IV ×3 (06:14→23:03)
[2021-09-24 07:11] LABS: MANUAL DIFF FLAG NO
[2021-09-24 07:24] LABS: Basophils Absolute Auto 0.1 X10*3/uL (0.0-0.2); Basophils Percent Auto 0.5 % (0-2); Eosinophils Absolute Auto 0.1 X10*3/uL (0.0-0.4); Eosinophils Percent Auto 0.4 % (0-4); Hematocrit 36.7 % (42.0-52.0); Hemoglobin 12.2 g/dl (14.0-18.0); Imm Gran Abs Auto 0.07 X10*3/uL (0.00-0.03); Imm Gran Pct Auto 0.4 % (0.0-0.4); Lymphocytes Absolute Auto 2.8 X10*3/uL (1.2-4.9); Lymphocytes Percent Auto 17.8 % (20-40); Mean Corpuscular HGB Conc 33.2 g/dl (31.0-36.0); Mean Corpuscular Hemoglobin 28.8 pg (27.0-33.0); Mean Corpuscular Volume 86.6 fL (80.0-98.0); Mean Platelet Volume 9.1 fL (9.4-12.4); Monocytes Absolute Auto 1.3 X10*3/uL (0.1-1.2); Monocytes Percent Auto 8.2 % (2-11); Neutrophils Absolute Auto 11.4 x10*3/uL (2.0-8.3); Neutrophils Percent Auto 72.7 % (45-73); Platelet Count 268 X10*3/uL (160-400); Red Blood Count 4.24 X10*6/uL (4.60-5.80); White Blood Count 15.7 X10*3/uL (4.8-10.8)
[2021-09-24 07:37] LABS: Anion Gap 12 (12-20); Blood Urea Nitrogen 9 mg/dL (9-16); Calcium 8.1 mg/dL (8.4-10.2); Carbon Dioxide 23 mmol/L (22-29); Chloride 106 mmol/L (96-108); Creatinine Clr Calc Pharmacy 137.7; Estimated Glomerular Filt Rate > 60; Glucose Random 100 mg/dL (60-115); Potassium 3.9 mmol/L (3.3-5.1); Sodium 137 mmol/L (135-145)
--- NOTE | 2021-09-24 11:37 | MHC.CM.PN ---
Met with patient in regards to discharge planning. Patient lives with his and 2 sons, ambulates independently and had no services prior to coming to the hospital. No services anticipated to be needed because patient is not homebound. PCP verified. Patient has a HCP at home and will attempt to obtain a copy. Patient received Moderna vaccines on 03/09 and 04/06. Patient's will transport him home when medically stable. Continue to monitor for d/c needs.
--- NOTE | 2021-09-24 11:44 | PC.NURSE ---
report taken this am from ashley mcnamara pt here for uncomplicated diverticulitis, being admitted for abx/pain mgmt. given prn medications as requested. no apparent distress, awaiting inpt bed assignment. wctm for dc needs.
--- NOTE | 2021-09-24 12:49 | HO.PM.IMPN ---
Subjective Subjective Date of Service: 09/24/21 <ROXANA Castrejon - Last Filed: 09/24/21 13:15> 10/13/21 <Davis Guerra MD - Last Filed: 10/13/21 16:26> Interval History: seen and examined this morning follow up for diverticulitis still having crampy lower abdominal pain; no diarrhea no fever, came in with chills but does not have chills at this time <ROXANA Castrejon - Last Filed: 09/24/21 13:15> Physical Exam Vital Signs: Vital Signs: Last Vital Signs Temp 99.1 F 09/24/21 11:33 Pulse 96 09/24/21 11:33 Resp 19 09/24/21 11:33 BP 106/57 L 09/24/21 11:33 Pulse Ox 96 09/24/21 11:33 Body Mass Index 40.3 <ROXANA Castrejon - Last Filed: 09/24/21 13:15> Const: Nutritional Appearance: well nourished <ROXANA Castrejon - Last Filed: 09/24/21 13:15> Orientation/consciousness: patient oriented x3 <ROXANA Castrejon - Last Filed: 09/24/21 13:15> HENMT: Head: Yes normocephalic and Yes atraumatic <ROXANA Castrejon - Last Filed: 09/24/21 13:15> Eyes: Sclerae: sclerae normal <ROXANA Castrejon - Last Filed: 09/24/21 13:15> Chest: Chest palpation & inspection: normal inspection of the chest <ROXANA Castrejon - Last Filed: 09/24/21 13:15> Resp: Effort & Inspection: normal respiratory effort and no respiratory distress <ROXANA Castrejon - Last Filed: 09/24/21 13:15> Cardio: Rate: regular rate <ROXANA Castrejon - Last Filed: 09/24/21 13:15> Rhythm: regular rhythm <ROXANA Castrejon - Last Filed: 09/24/21 13:15> GI: Other: abdomen soft, tender to palpation periumbilical and b/l lower quadrants; non-distended; +BS <ROXANA Castrejon - Last Filed: 09/24/21 13:15> Neuro: General: patient oriented x3 <ROXANA Castrejon - Last Filed: 09/24/21 13:15> Cranial nerves: Yes CN's II-XII intact bilaterally and Yes Bilaterally intact EOM present <ROXANA Castrejon - Last Filed: 09/24/21 13:15> Extrem: Other: no leg edema <ROXANA Castrejon Last Filed: 09/24/21 13:15> Objective Data Active Medications Acetaminophen (Acetaminophen 325 Mg Tablet) 650 mg PO Q6H PRN PRN Reason: Pain, Mild (Pain Scale 1-3) Enoxaparin Sodium (Enoxaparin Sodium 40 Mg/0.4 Ml Syringe) 40 mg SUBCUT Q24H [facility] Last Admin: 09/24/21 02:45 Dose: 40 mg Documented by: SHELBIE Famotidine (Famotidine 20 Mg Tablet) 40 mg PO BEDTIME [facility] Hydroxyzine HCl (Hydroxyzine Hcl 10 Mg Tablet) 10 mg PO ONCE PRN PRN Reason: anxiety Metronidazole (Flagyl) 500 mg in 100 mls @ 100 mls/hr IV Q8H [facility] Last Infusion: 09/24/21 07:09 Dose: 0 mls/hr Documented by: ELIZABETH Levofloxacin (Levaquin) 750 mg in 150 mls @ 100 mls/hr IV Q24H [facility] Morphine Sulfate (Morphine Sulfate 4 Mg/Ml Cartridge) 4 mg IVPUSH Q4H PRN; Protocol PRN Reason: Pain, Severe (Pain Scale 7-10) Last Admin: 09/24/21 11:29 Dose: 4 mg Documented by: SAMANTHA Omeprazole (Omeprazole 40 Mg Capsule.Dr) 40 mg PO DAILY@0630 [facility] Last Admin: 09/24/21 06:14 Dose: 40 mg Documented by: ALINA Ondansetron HCl (Ondansetron Hcl 4 Mg/2 Ml Vial) 4 mg IVPUSH Q8H PRN PRN Reason: Nausea and Vomiting Last Admin: 09/24/21 02:42 Dose: 4 mg Documented by: SHELBIE Sodium Chloride (0.9 % Sodium Chloride Flush 3 Ml Syringe) 3 ml IVFLUSH QSHIFT [facility] Last Admin: 09/24/21 07:07 Dose: Not Given Documented by: ELIZABETH Non-Admin Reason: Med Not Available <ROXANA Castrejon - Last Filed: 09/24/21 13:15> Labs CBC & Chem 7: : 09/25/21 05:30 09/25/21 05:30 <ROXANA Castrejon - Last Filed: 09/24/21 13:15> Labs: Laboratory Results - last 24 hr 09/23/21 09/23/21 09/23/21 21:55 21:55 21:55 MCV 85.6 MCH 29.5 MCHC 34.4 RDW 12.7 Plt Count 297 MPV 9.2 L Immature Gran % (Auto) 0.3 Neut % (Auto) 82.8 H Lymph % (Auto) 10.6 L [place] % (Auto) 5.5 Eos % (Auto) 0.4 Baso % (Auto) 0.4 Lymph # (Auto) 1.9 [place] # (Auto) 1.0 Eos # (Auto) 0.1 Baso # (Auto) 0.1 Abs Immat Gran (auto) 0.06 H Absolute Neuts (auto) 14.7 H Absolute Nucleated RBC 0.000 Nucleated RBC % (auto) 0.0 Anion Gap 12 Estim Creat Clear Calc 111.7 Estimated GFR > 60 Random Glucose 117 H Lactic Acid 1.3 Calcium 9.1 Total Bilirubin 0.8 Direct Bilirubin 0.3 AST 22 D ALT 47 H Alkaline Phosphatase 61 Total Protein 7.2 Albumin 4.4 COVID-19 ([facility]) COVID-19 Clin Com 09/23/21 09/24/21 09/24/21 21:55 07:00 07:00 MCV 86.6 MCH 28.8 MCHC 33.2 RDW 13.0 Plt Count 268 MPV 9.1 L Immature Gran % (Auto) 0.4 Neut % (Auto) 72.7 Lymph % (Auto) 17.8 L [place] % (Auto) 8.2 Eos % (Auto) 0.4 Baso % (Auto) 0.5 Lymph # (Auto) 2.8 [place] # (Auto) 1.3 H Eos # (Auto) 0.1 Baso # (Auto) 0.1 Abs Immat Gran (auto) 0.07 H Absolute Neuts (auto) 11.4 H Absolute Nucleated RBC 0.000 Nucleated RBC % (auto) 0.0 Anion Gap 12 Estim Creat Clear Calc 137.7 Estimated GFR > 60 Random Glucose 100 Lactic Acid Calcium 8.1 L D Total Bilirubin Direct Bilirubin AST ALT Alkaline Phosphatase Total Protein Albumin COVID-19 ([facility]) Negative COVID-19 Clin Com See Note <ROXANA Castrejon - Last Filed: 09/24/21 13:15> Assessment and Plan (1) Acute diverticulitis: Status: Acute <ROXANA Castrejon - Last Filed: 09/24/21 13:15> Assessment and Plan: 36-year-old male with past medical history of diverticulitis presents to the hospital with complaints of abdominal pain found to have uncomplicated diverticula acute uncomplicated diverticulitis no evidence of drainable collection, abscess formation or pneumoperitoneum -continue IV levaquin/Flagyl started 09/24 -NPO, advance diet as tolerated -pain control -due to recurrent episodes of diverticulitis (4+) will consult surgery chronic diarrhea outpatient GI notes indicate chronic diarrhea for the past few years plan for outpatient EGD/colonoscopy not having diarrhea at the moment history of GERD - continue Pepcid anxiety - continue hydroxyzine DVT prophylaxis: Lovenox attending: dr. Guerra <ROXANA Castrejon - Last Filed: 09/24/21 13:15> 36-year-old male with past medical history of diverticulitis presents to the hospital with complaints of abdominal pain found to have uncomplicated diverticula acute uncomplicated diverticulitis no evidence of drainable collection, abscess formation or pneumoperitoneum -continue IV levaquin/Flagyl started 09/24 -NPO, advance diet as tolerated -pain control -due to recurrent episodes of diverticulitis (4+) will consult surgery chronic diarrhea outpatient GI notes indicate chronic diarrhea for the past few years plan for outpatient EGD/colonoscopy not having diarrhea at the moment history of GERD - continue Pepcid anxiety - continue hydroxyzine DVT prophylaxis: Lovenox attending: dr. Guerra I saw patient and discussed finding with midlevel provider and i agree with the above <Davis Guerra MD - Last Filed: 10/13/21 16:26> Quality Stroke Does the patient have a stroke diagnosis?: No <ROXANA Castrejon - Last Filed: 09/24/21 13:15> VTE Prior VTE?: No <ROXANA Castrejon - Last Filed: 09/24/21 13:15> VTE Risk Level:: Medical - moderate - high <ROXANA Castrejon - Last Filed: 09/24/21 13:15> VTE Device Contraindication: Treatment Not Indicated <ROXANA Castrejon - Last Filed: 09/24/21 13:15> VTE Drug Contraindication: N/A - Med Ordered <ROXANA Castrejon - Last Filed: 09/24/21 13:15>
--- NOTE | 2021-09-24 14:07 | PM.CNGS ---
History of Present Illness Consult details Consult date: 09/24/21 <Nunu Donovan PA-C - Last Filed: 09/24/21 14:33> Reason for consult: other (recurrent diverticulitis) <Nunu Donovan PA-C - Last Filed: 09/24/21 14:33> Requesting physician: Karen To <Nunu Donoavn PA-C - Last Filed: 09/24/21 14:33> Narrative: Mr. Calero is a 36 year old male with PMH including GERD, anxiety, IBS who presented to the ED with complaints of abdominal pain. The pain began yesterday morning. The pain was in the LLQ and constant, however the severity waxed and waned. When it became severe, the pain radiated all over. It was sharp in nature. He reports it felt like his prior episodes of diverticulitis. It is associated with diarrhea- he has multiple episodes per day. He denies nausea, vomiting, fevers or chills. The pain became so severe he decided to seek care. Work up in the ED included a CT scan which demonstrated wall thickening and significant inflammatory changes within the sigmoid colon centered around several diverticuli, most consistent with acute diverticulitis without drainable collections or abscess. He also had a leukocytosis of 17.8. The patient was admitted to the medical service. Surgery was asked to see due to his recurrent episodes. He reports he feels a little better than when he first arrived. His first episode of diverticulitis was in 2014 at the [facility] in [place] and he had a microperforation at that time. He was managed nonoperatively and improved. He had a colonoscopy following that episode which showed diverticulosis and benign polyps. He was scheduled to have a sigmoid resection at that time but he cancelled. He reports since the initial episode, he has had 5-6 recurrences. These were uncomplicated and managed by PO antibiotics and did not require admission. His last episode was 6 months ago. He has been seen by GI as an outpatient for the LLQ pain and diarrhea with occasional BRB and is scheduled for an EGD/colonoscopy next month. <Nunu Donovan PA-C - Last Filed: 09/24/21 14:33> Review of Systems Constitutional: Constitutional: Denies chills and Denies fever(s) <Nunu Donovan PA-C - Last Filed: 09/24/21 14:33> ENT: Denies dizziness <Nunu Donovan PA-C - Last Filed: 09/24/21 14:33> Cardiovascular: Cardiovascular: Denies chest pain, Denies palpitations and Denies dyspnea <Nunu Donovan PA-C - Last Filed: 09/24/21 14:33> Respiratory: Respiratory: Reports cough, Denies dyspnea and Denies wheezing <Nunu Donovan PA-C - Last Filed: 09/24/21 14:33> Gastrointestinal: Gastrointestinal: Reports as per HPI <Nunu Donovan PA-C - Last Filed: 09/24/21 14:33> Genitourinary: Genitourinary: Denies hematuria and Denies dysuria <Nunu Donovan PA-C - Last Filed: 09/24/21 14:33> Neurologic: Denies dizziness <Nunu Donovan PA-C - Last Filed: 09/24/21 14:33> Endocrine: Endocrine: Denies palpitations <Nunu Donovan PA-C - Last Filed: 09/24/21 14:33> Allergic/Immunologic: Allergic/Immunologic: Denies wheezing <Nunu Donovan PA-C - Last Filed: 09/24/21 14:33> [facility] Past Medical History Medical History: Medical History (Updated 09/24/21 @ 14:20 by Nunu Donovan PA-C) Anxiety GERD (gastroesophageal reflux disease) IBS (irritable bowel syndrome) <Nunu Donovan PA-C - Last Filed: 09/24/21 14:33> Family History Family History: Family History Father History of heart disease Mother History of lung cancer Hx of breast cancer History of skin cancer <Nunu Donovan PA-C - Last Filed: 09/24/21 14:33> Surgical History Surgical History: Surgical History History of medial meniscus repair of left knee History of tonsillectomy and adenoidectomy <Nunu Donovan PA-C - Last Filed: 09/24/21 14:33> Social History Social History: Social History Household Members Other:: 2 kids Are you a primary direct care provider to a significant other at home: No Do you presently have visiting nurse or other home services: No Alcohol intake: current Alcohol intake frequency: holidays/special occasions only Patient Tobacco Use Status: Never used Tobacco Use of substances other than those prescribed or required for medical reasons: No Advance Directives: No Advance Directives Information Provided: No service: Yes Current occupational status: employed Current occupation: [employer] <Nunu Donovan PA-C - Last Filed: 09/24/21 14:33> Meds Allergies/Adverse reactions: Allergies Allergy/AdvReac Type Severity Reaction Status Date / Time No Known Allergies Allergy Verified 07/27/21 16:02 [No Known Allergies*] <Nunu Donovan PA-C - Last Filed: 09/24/21 14:33> Active Medications: Current Medications Acetaminophen (Acetaminophen 325 Mg Tablet) 650 mg PO Q6H PRN PRN Reason: Pain, Mild (Pain Scale 1-3) Enoxaparin Sodium (Enoxaparin Sodium 40 Mg/0.4 Ml Syringe) 40 mg SUBCUT Q24H [facility] Last Admin: 09/24/21 02:45 Dose: 40 mg Documented by: Hydroxyzine HCl (Hydroxyzine Hcl 10 Mg Tablet) 10 mg PO DAILY PRN PRN Reason: anxiety Metronidazole (Flagyl) 500 mg in 100 mls @ 100 mls/hr IV Q8H [facility] Last Infusion: 09/24/21 07:09 Dose: Infused Documented by: Levofloxacin (Levaquin) 750 mg in 150 mls @ 100 mls/hr IV Q24H [facility] Lactated Ringer's (Lr) 1,000 mls @ 100 mls/hr IVCONT .Q10H [facility] Morphine Sulfate (Morphine Sulfate 4 Mg/Ml Cartridge) 4 mg IVPUSH Q4H PRN; Protocol PRN Reason: Pain, Severe (Pain Scale 7-10) Last Admin: 09/24/21 11:29 Dose: 4 mg Documented by: Omeprazole (Omeprazole 40 Mg Capsule.Dr) 40 mg PO DAILY@0630 [facility] Last Admin: 09/24/21 06:14 Dose: 40 mg Documented by: Ondansetron HCl (Ondansetron Hcl 4 Mg/2 Ml Vial) 4 mg IVPUSH Q8H PRN PRN Reason: Nausea and Vomiting Last Admin: 09/24/21 02:42 Dose: 4 mg Documented by: Sodium Chloride (0.9 % Sodium Chloride Flush 3 Ml Syringe) 3 ml IVFLUSH QSHIFT [facility] Last Admin: 09/24/21 07:07 Dose: Not Given Documented by: <Nunu Donovan PA-C Last Filed: 09/24/21 14:33> Physical Exam Vital Signs: Vital Signs: Last Vital Signs Temp 99.1 F 09/24/21 11:33 Pulse 96 09/24/21 11:33 Resp 19 09/24/21 11:33 BP 106/57 L 09/24/21 11:33 Pulse Ox 96 09/24/21 11:33 Body Mass Index 40.3 [facility] Last Filed: 09/24/21 14:33> Const: General: comfortable, no acute distress and alert <[facility] Last Filed: 09/24/21 14:33> Orientation/consciousness: patient oriented x3 <[facility] Last Filed: 09/24/21 14:33> Eyes: Sclerae: sclerae normal <[facility] Last Filed: 09/24/21 14:33> Resp: Effort & Inspection: normal respiratory effort <Nunu Donovan PA-C Last Filed: 09/24/21 14:33> GI: Inspection: No distended and Yes other (round) <KIRBY Rice Last Filed: 09/24/21 14:33> Palpation (GI): Soft to palpation, Tenderness to palpation present (GI) in the LLQ (moderate to severe); Negative for with no rebound tenderness and not rigid <KIRBY Rice Last Filed: 09/24/21 14:33> Percussion: Yes normal to percussion <KIRBY Rice Last Filed: 09/24/21 14:33> Skin: General skin exam: no rashes or lesions noted <Nunu Donovan PA-C - Last Filed: 09/24/21 14:33> Neuro: General: patient oriented x3 <KIRBY Rice Last Filed: 09/24/21 14:33> Extrem: General: Yes no clubbing, cyanosis or edema <KIRBY Rice Last Filed: 09/24/21 14:33> Results Labs Result diagrams: : 09/24/21 07:00 09/24/21 07:00 <KIRBY Rice Last Filed: 09/24/21 14:33> Labs: Abnormal lab results 09/23/21 09/23/21 09/24/21 Range/Units 21:55 21:55 07:00 WBC 17.8 H 15.7 H (4.8-10.8) X10*3/uL RBC 4.58 L 4.24 L (4.60-5.80) X10*6/uL Hgb 13.5 L 12.2 L (14.0-18.0) g/dl Hct 39.2 L 36.7 L (42.0-52.0) % MPV 9.2 L 9.1 L (9.4-12.4) fL Neut % (Auto) 82.8 H (45-73) % Lymph % (Auto) 10.6 L 17.8 L (20-40) % [place] # (Auto) 1.3 H (0.1-1.2) X10*3/uL Abs Immat Gran (auto) 0.06 H 0.07 H (0.00-0.03) X10*3/uL Absolute Neuts (auto) 14.7 H 11.4 H (2.0-8.3) x10*3/uL Random Glucose 117 H (60-115) mg/dL Calcium (8.4-10.2) mg/dL ALT 47 H (0-40) U/L 09/24/21 Range/Units 07:00 WBC (4.8-10.8) X10*3/uL RBC (4.60-5.80) X10*6/uL Hgb (14.0-18.0) g/dl Hct (42.0-52.0) % MPV (9.4-12.4) fL Neut % (Auto) (45-73) % Lymph % (Auto) (20-40) % [place] # (Auto) (0.1-1.2) X10*3/uL Abs Immat Gran (auto) (0.00-0.03) X10*3/uL Absolute Neuts (auto) (2.0-8.3) x10*3/uL Random Glucose (60-115) mg/dL Calcium 8.1 L D (8.4-10.2) mg/dL ALT (0-40) U/L Short CBC 09/23/21 09/24/21 Range/Units 21:55 07:00 WBC 17.8 H 15.7 H (4.8-10.8) X10*3/uL Hgb 13.5 L 12.2 L (14.0-18.0) g/dl Hct 39.2 L 36.7 L (42.0-52.0) % Plt Count 297 268 (160-400) X10*3/uL BMP 09/23/21 09/24/21 21:55 07:00 Sodium 138 137 Potassium 4.3 3.9 Chloride 105 106 Carbon Dioxide 25 23 BUN 11 9 Creatinine 1.06 0.86 Calcium 9.1 8.1 L D Liver Function 09/23/21 Range/Units 21:55 Total Bilirubin 0.8 (0.0-1.0) mg/dL Direct Bilirubin 0.3 (0.0-0.5) mg/dL AST 22 D (5-37) U/L ALT 47 H (0-40) U/L Alkaline Phosphatase 61 (39-117) U/L Albumin 4.4 (3.5-5.0) g/dL All other labs normal. <Nunu Donovan PA-C - Last Filed: 09/24/21 14:33> Assessment and Plan (1) Acute diverticulitis: Status: Acute <Nunu Donovan PA-C - Last Filed: 09/24/21 14:33> 36-year-old male admitted for uncomplicated acute diverticulitis Tender in the upper quadrant but otherwise benign Bowel rest IV antibiotics Will continue to follow closely Seen and examined - agree with ROXANA Donovan <William Cee MD - Last Filed: 09/24/21 15:40> 36 year old male who presented for LLQ abd pain with severe LLQ tenderness, leukocytosis and CT scan demonstrating wall thickening and significant inflammatory changes within the sigmoid colon, consistent with acute diverticulitis. There are no fluid collections or abscesses. It appears uncomplicated but he has significant changes and remains significantly tender in the LLQ. Agree with IV antibiotics and bowel rest for treatment. PRN analgesics. Discussed with the patient that can continue with nonoperative measures but if he does not improve or worsens he may require reimaging, sigmoid resection during the stay. If he continues to improve, he can follow up with Dr. Cee as an outpatient to discuss elective sigmoid resection as a definitive treatment as his episodes are becoming more severe and frequent. He understands and agrees with the plan. Will continue to follow. Trend WBC count. <Nunu Donovan PA-C - Last Filed: 09/24/21 14:33> Procedures Date of Service Date of Service: 09/24/21 <Nunu Donovan PA-C - Last Filed: 09/24/21 14:33>
[2021-09-24] MEDS: Lactated Ringers 1,000 ML 100 ML IVCONT (14:18)
[2021-09-24] MEDS: levoFLOXacin/D5W 750 MG/150 ML PIGGYBACK 100 MG IV (21:37)
[2021-09-25] VITALS: BP 127/75; PULSE 94; RESP 18; TEMP 36.9; O2SAT 95
[2021-09-25] MEDS: Lactated Ringers 1,000 ML 100 ML IVCONT ×2 (01:51→14:13)
[2021-09-25] MEDS: Enoxaparin Sodium 40 MG/0.4 ML SYRINGE SUBCUT (03:24)
[2021-09-25 04:00] VITALS: BP 132/77; PULSE 94; RESP 17; TEMP 36.7; O2SAT 97
[2021-09-25] MEDS: metroNIDAZOLE/NS 500 MG/100 ML PIGGYBACK 100 MG IV ×3 (05:59→21:02)
[2021-09-25] MEDS: Omeprazole 40 MG CAPSULE.DR PO (05:59)
[2021-09-25 06:05] LABS: Hematocrit 36.4 % (42.0-52.0); Hemoglobin 12.1 g/dl (14.0-18.0); Mean Corpuscular HGB Conc 33.2 g/dl (31.0-36.0); Mean Corpuscular Hemoglobin 29.1 pg (27.0-33.0); Mean Corpuscular Volume 87.5 fL (80.0-98.0); Mean Platelet Volume 9.2 fL (9.4-12.4); Platelet Count 261 X10*3/uL (160-400); Red Blood Count 4.16 X10*6/uL (4.60-5.80); Red Cell Distribution Width 12.7 % (11.0-16.0); White Blood Count 11.8 X10*3/uL (4.8-10.8)
[2021-09-25 06:32] LABS: Anion Gap 11 (12-20); Blood Urea Nitrogen 9 mg/dL (9-16); Calcium 8.7 mg/dL (8.4-10.2); Carbon Dioxide 28 mmol/L (22-29); Chloride 103 mmol/L (96-108); Creatinine Clr Calc Pharmacy 109.7; Estimated Glomerular Filt Rate > 60; Glucose Random 87 mg/dL (60-115); Potassium 4.2 mmol/L (3.3-5.1); Sodium 138 mmol/L (135-145)
[2021-09-25 07:47] VITALS: BP 131/64; PULSE 84; RESP 18; TEMP 36.6; O2SAT 95
--- NOTE | 2021-09-25 07:52 | P.CDIC_ITS ---
CDI Concurrent Query Documentation Clarification: PHYSICIAN'S DOCUMENTATION REQUEST Date of Query: 09/25/21 0752 Patient Name: Pedro Luis Calero Admit Date: 09/24/21 Dear Doctor, A review of the medical record indicates additional documentation may be needed. Please review below and update the documentation accordingly. Risk Factors/Clinical Indicators/Treatments T 100.4 P 101 WBC 15.7 Per surgery consult 09/24/21: CT scan demonstrated wall thickening and significant inflammatory changes within the sigmoid without abscess. Uncomplicated Diverticulitis Treated with IV ATB, bowel rest and prn analgesic Based on the above, could you clarify in the Progress Notes the appropriate diagnosis, if significant, that supports the above abnormalities and additional evaluation, monitoring, and/or treatment rendered: Based on the above clinical indicators, please provide a diagnosis associated with the evaluation, monitoring and treatment of the patient's condition * Other (please specify) * Unable to determine Use of terms such as suspected, likely, concern for, or probable (associated with a specific diagnosis that is being evaluated, monitored, or treated as if it exists) are acceptable and can be coded in the inpatient setting, when documented at the time of discharge. Thank you, Velma Patterson RN Extension: [phone] Please use your independent medical judgment in providing your response. THIS QUERY IS PART OF THE PERMANENT MEDICAL RECORD Provider Response: Sepsis
--- NOTE | 2021-09-25 08:05 | P.CDIC_ITS ---
CDI Concurrent Query Documentation Clarification: PHYSICIAN'S DOCUMENTATION REQUEST Date of Query: 09/25/21805 Patient Name: Pedro Luis Calero Admit Date: 09/24/21 Dear Doctor, A review of the medical record indicates additional documentation may be needed. Please review below and update the documentation accordingly. Clinical Indicators: Height: [] 5'6 Weight: [] 113.398 kg BMI: [] 40.4 Other Clinical Notes Supporting Significance of the BMI: Risk Factors/Clinical Indicators/Treatments If possible, please provide an associated diagnosis related to the abnormal BMI, such as: For a BMI >= 40: * Overweight * Obesity * Due to excess calories * Drug induced * Due to other cause * Severe or Morbid Obesity * With alveolar hypoventilation * Without alveolar hypoventilation Or: * BMI is not significant * Other (please specify) * Unable to determine Use of terms such as suspected, likely, concern for, or probable (associated with a specific diagnosis that is being evaluated, monitored, or treated as if it exists) are acceptable and can be coded in the inpatient setting, when documented at the time of discharge. Thank you, Velma Patterson RN Extension: [phone] Please use your independent medical judgment in providing your response. THIS QUERY IS PART OF THE PERMANENT MEDICAL RECORD Provider Response: Obesity
--- NOTE | 2021-09-25 08:45 | P.PNIM_ITS ---
Subjective Subjective Date of Service: 09/25/21 Interval History: seen and examined this morning follow up for diverticulitis abdominal pain improving. no diarrhea no nausea, vomiting Review of Systems Review of Systems: Yes all other systems are reviewed and are negative Constitutional Constitutional: Denies chills and Denies fever(s) Cardiovascular Cardiovascular: Denies chest pain Respiratory Respiratory: Denies cough Gastrointestinal Gastrointestinal: Reports abdominal pain, Denies diarrhea and Denies nausea Physical Exam Vital Signs: Vital Signs: Last Vital Signs Temp 97.9 F 09/25/21 07:47 Pulse 84 09/25/21 07:47 Resp 18 09/25/21 07:47 BP 131/64 09/25/21 07:47 Pulse Ox 95 09/25/21 07:47 Body Mass Index 40.3 Const: Nutritional Appearance: well nourished Orientation/consciousness: patient oriented x3 HENMT: Head: Yes normocephalic and Yes atraumatic Eyes: Sclerae: sclerae normal Chest: Chest palpation & inspection: normal inspection of the chest Resp: Effort & Inspection: normal respiratory effort and no respiratory distress Cardio: Rate: regular rate Rhythm: regular rhythm GI: Other: abdomen soft, tender to palpation periumbilical and b/l lower quadrants; non-distended; +BS Neuro: General: patient oriented x3 Cranial nerves: Yes CN's II-XII intact bilaterally and Yes Bilaterally intact EOM present Extrem: Other: no leg edema Objective Data Active Medications Acetaminophen (Acetaminophen 325 Mg Tablet) 650 mg PO Q6H PRN PRN Reason: Pain, Mild (Pain Scale 1-3) Enoxaparin Sodium (Enoxaparin Sodium 40 Mg/0.4 Ml Syringe) 40 mg SUBCUT Q24H [facility] Last Admin: 09/25/21 03:24 Dose: 40 mg Documented by: KRISAT Hydroxyzine HCl (Hydroxyzine Hcl 10 Mg Tablet) 10 mg PO DAILY PRN PRN Reason: anxiety Metronidazole (Flagyl) 500 mg in 100 mls @ 100 mls/hr IV Q8H [facility] Last Infusion: 09/25/21 07:46 Dose: 100 mls/hr Documented by: JOSE ANTONIO Levofloxacin (Levaquin) 750 mg in 150 mls @ 100 mls/hr IV Q24H [facility] Last Infusion: 09/24/21 23:07 Dose: 0 mls/hr Documented by: KRISTA Lactated Ringer's (Lr) 1,000 mls @ 100 mls/hr IVCONT .Q10H [facility] Last Admin: 09/25/21 01:51 Dose: 100 mls/hr Documented by: KRISTA Morphine Sulfate (Morphine Sulfate 4 Mg/Ml Cartridge) 4 mg IVPUSH Q4H PRN; Protocol PRN Reason: Pain, Severe (Pain Scale 7-10) Last Admin: 09/24/21 18:09 Dose: 4 mg Documented by: JOSE ANTONIO Omeprazole (Omeprazole 40 Mg Capsule.Dr) 40 mg PO DAILY@0630 [facility] Last Admin: 09/25/21 05:59 Dose: 40 mg Documented by: KRISTA Ondansetron HCl (Ondansetron Hcl 4 Mg/2 Ml Vial) 4 mg IVPUSH Q8H PRN PRN Reason: Nausea and Vomiting Last Admin: 09/24/21 02:42 Dose: 4 mg Documented by: SHELBIE Sodium Chloride (0.9 % Sodium Chloride Flush 3 Ml Syringe) 3 ml IVFLUSH QSHIFT [facility] Last Admin: 09/25/21 08:14 Dose: Not Given Documented by: JOSE ANTONIO Non-Admin Reason: IV Running Labs CBC & Chem 7: 09/25/21 05:30 09/25/21 05:30 Labs: Laboratory Results - last 24 hr 09/25/21 09/25/21 05:30 05:30 MCV 87.5 MCH 29.1 MCHC 33.2 RDW 12.7 Plt Count 261 MPV 9.2 L Absolute Nucleated RBC 0.000 Nucleated RBC % (auto) 0.0 Anion Gap 11 L Estim Creat Clear Calc 109.7 Estimated GFR > 60 Random Glucose 87 Calcium 8.7 D Microbiology Microbiology Results: Microbiology 09/23/21 22:14 Blood Culture - Preliminary Blood - Venous No growth after 24 hours. 09/23/21 22:14 Blood Culture - Preliminary Blood - Venous No growth after 24 hours. Assessment and Plan (1) Acute diverticulitis: Status: Acute Assessment and Plan: 36-year-old male with past medical history of diverticulitis presents to the hospital with complaints of abdominal pain found to have uncomplicated diverticula acute uncomplicated diverticulitis, reccurent no evidence of drainable collection, abscess formation or pneumoperitoneum -continue IV levaquin/Flagyl started 09/24 -pain control -surgery following -will advance to clear liqs chronic diarrhea outpatient GI notes indicate chronic diarrhea for the past few years plan for outpatient EGD/colonoscopy not having diarrhea at the moment history of GERD - continue Pepcid anxiety - continue hydroxyzine DVT prophylaxis: Lovenox attending: dr. arora Quality Stroke Does the patient have a stroke diagnosis?: No VTE Prior VTE?: No VTE Risk Level:: Medical - moderate - high VTE Device Contraindication: Treatment Not Indicated VTE Drug Contraindication: N/A - Med Ordered
--- NOTE | 2021-09-25 09:59 | P.PNGS_ITS ---
Subjective Subjective Date of Service: 09/25/21 <Nunu Donovan PA-C - Last Filed: 09/25/21 10:02> 09/25/21 <William Cee MD - Last Filed: 09/25/21 13:55> Interval history: Feels much better today, pain improved. Tolerating clear liquids. <Nunu Donovan PA-C - Last Filed: 09/25/21 10:02> Physical Exam Vital Signs: Vital Signs: Last Vital Signs Temp 97.9 F 09/25/21 07:47 Pulse 84 09/25/21 07:47 Resp 18 09/25/21 07:47 BP 131/64 09/25/21 07:47 Pulse Ox 95 09/25/21 07:47 Body Mass Index 40.3 <Nunu Donovan PA-C - Last Filed: 09/25/21 10:02> Const: General: comfortable, no acute distress and alert <Nunu Donovan PA-C - Last Filed: 09/25/21 10:02> Orientation/consciousness: patient oriented x3 <Nunu Donovan PA-C - Last Filed: 09/25/21 10:02> Resp: Effort & Inspection: normal respiratory effort <KIRBY Rice Last Filed: 09/25/21 10:02> GI: Inspection: No distended <Nunu Donovan PA-C - Last Filed: 09/25/21 10:02> Palpation (GI): Soft to palpation, Tenderness to palpation present (GI) in the LLQ (moderate, improved); Negative for with no rebound tenderness, no guarding and not rigid <Nunu Donovan PA-C - Last Filed: 09/25/21 10:02> Percussion: Yes normal to percussion <KIRBY Rice Last Filed: 09/25/21 10:02> Skin: General skin exam: no rashes or lesions noted <KIRBY Rice Last Filed: 09/25/21 10:02> Neuro: General: patient oriented x3 <KIRBY Rice Last Filed: 09/25/21 10:02> Procedures Date of Service Date of Service: 09/25/21 <Nunu Donovan PA-C - Last Filed: 09/25/21 10:02> Progress Note: A&P Assessment and plan (1) Acute diverticulitis: Status: Acute <Nunu Donovan PA-C - Last Filed: 09/25/21 10:02> Assessment and Plan: Patient says he feels much better Less pain No fever Abdomen soft, no guarding or rebound Continue IV antibiotics Clear liquids today Seen and examined, agree with ROXANA Donovan <William Cee MD - Last Filed: 09/25/21 13:55> Assessment and Plan: 36 year old male admitted with acute sigmoid diverticulitis. He is improved symptomatically and clinically this morning. His abdomen is less tender, remains without peritoneal signs. WBC continues to downtrend. Cont nonoperative measures of IV abx, IVF. Continue clear liquids for now. <Nunu Donovan PA-C - Last Filed: 09/25/21 10:02> Fall Risk Details Current Medications: Current Medications Acetaminophen (Acetaminophen 325 Mg Tablet) 650 mg PO Q6H PRN PRN Reason: Pain, Mild (Pain Scale 1-3) Enoxaparin Sodium (Enoxaparin Sodium 40 Mg/0.4 Ml Syringe) 40 mg SUBCUT Q24H [facility] Last Admin: 09/25/21 03:24 Dose: 40 mg Documented by: Hydroxyzine HCl (Hydroxyzine Hcl 10 Mg Tablet) 10 mg PO DAILY PRN PRN Reason: anxiety Metronidazole (Flagyl) 500 mg in 100 mls @ 100 mls/hr IV Q8H [facility] Last Infusion: 09/25/21 07:46 Dose: Infused Documented by: Levofloxacin (Levaquin) 750 mg in 150 mls @ 100 mls/hr IV Q24H [facility] Last Infusion: 09/24/21 23:07 Dose: Infused Documented by: Lactated Ringer's (Lr) 1,000 mls @ 100 mls/hr IVCONT .Q10H [facility] Last Admin: 09/25/21 01:51 Dose: 100 mls/hr Documented by: Morphine Sulfate (Morphine Sulfate 4 Mg/Ml Cartridge) 4 mg IVPUSH Q4H PRN; Protocol PRN Reason: Pain, Severe (Pain Scale 7-10) Last Admin: 09/24/21 18:09 Dose: 4 mg Documented by: Omeprazole (Omeprazole 40 Mg Capsule.Dr) 40 mg PO DAILY@0630 [facility] Last Admin: 09/25/21 05:59 Dose: 40 mg Documented by: Ondansetron HCl (Ondansetron Hcl 4 Mg/2 Ml Vial) 4 mg IVPUSH Q8H PRN PRN Reason: Nausea and Vomiting Last Admin: 09/24/21 02:42 Dose: 4 mg Documented by: Sodium Chloride (0.9 % Sodium Chloride Flush 3 Ml Syringe) 3 ml IVFLUSH QSHIFT [facility] Last Admin: 09/25/21 08:14 Dose: Not Given Documented by: <Nunu Donovan PA-C - Last Filed: 09/25/21 10:02> Time Spent With Patient Time: Total time spent is greater than 50% in coordination of care (as d ocumented) at patient's floor/unit and/or counseling patient: <Nunu Donovan PA-C - Last Filed: 09/25/21 10:02> Time with patient: less than 15 minutes <Nunu Donovan PA-C - Last Filed: 09/25/21 10:02> Quality Stroke Does the patient have a stroke diagnosis?: No <Nunu Donovan PA-C - Last Filed: 09/25/21 10:02> VTE Prior VTE?: No <Nunu Donovan PA-C - Last Filed: 09/25/21 10:02> VTE Risk Level:: Medical - moderate - high <Nunu Donovan PA-C - Last Filed: 09/25/21 10:02> VTE Device Contraindication: Treatment Not Indicated <Nunu Donovan PA-C - Last Filed: 09/25/21 10:02> VTE Drug Contraindication: N/A - Med Ordered <Nunu Donovan PA-C - Last Filed: 09/25/21 10:02>
[2021-09-25 11:40] VITALS: BP 123/58; PULSE 85; RESP 17; TEMP 36.8; O2SAT 96
[2021-09-25] MEDS: Acetaminophen 325 MG TABLET 650 MG PO (14:24)
[2021-09-25 15:37] VITALS: BP 121/71; PULSE 84; RESP 17; TEMP 36.6; O2SAT 95
[2021-09-25 19:28] VITALS: BP 132/73; PULSE 72; RESP 18; TEMP 36.7; O2SAT 98
[2021-09-25] MEDS: 0.9 % Sodium Chloride Flush 3 ML SYRINGE IVFLUSH (21:05)
[2021-09-25] MEDS: levoFLOXacin/D5W 750 MG/150 ML PIGGYBACK 100 MG IV (22:08)
[2021-09-26] VITALS: BP 143/92; PULSE 79; RESP 18; TEMP 37; O2SAT 97
[2021-09-26] MEDS: Enoxaparin Sodium 40 MG/0.4 ML SYRINGE SUBCUT (03:02)
[2021-09-26] MEDS: Lactated Ringers 1,000 ML 100 ML IVCONT (03:04)
[2021-09-26 03:45] VITALS: BP 149/90; PULSE 73; RESP 18; TEMP 36.5; O2SAT 96
[2021-09-26] MEDS: Omeprazole 40 MG CAPSULE.DR PO (05:15)
[2021-09-26] MEDS: metroNIDAZOLE/NS 500 MG/100 ML PIGGYBACK 100 MG IV (05:15)
[2021-09-26 08:00] VITALS: BP 137/76; PULSE 71; RESP 18; TEMP 36.1; O2SAT 96
[2021-09-26 12:00] VITALS: BP 139/83; PULSE 82; RESP 16; TEMP 36.4; O2SAT 95
--- NOTE | 2021-09-26 13:01 | PM.PNGS ---
Subjective Subjective Date of Service: 09/26/21 Interval history: Denies abdominal pain Tolerating diet well No fever Denies GI complaints Physical Exam Vital Signs: Vital Signs: Last Vital Signs Temp 97.5 F 09/26/21 12:00 Pulse 82 09/26/21 12:00 Resp 16 09/26/21 12:00 BP 139/83 09/26/21 12:00 Pulse Ox 95 09/26/21 12:00 Body Mass Index 40.3 Chemistry 09/23/21 09/24/21 09/25/21 21:55 07:00 05:30 Sodium 138 137 138 Potassium 4.3 3.9 4.2 Carbon Dioxide 25 23 28 BUN 11 9 9 Creatinine 1.06 0.86 1.08 Calcium 9.1 8.1 L D 8.7 D Hematology 09/23/21 09/24/21 09/25/21 21:55 07:00 05:30 WBC 17.8 H 15.7 H 11.8 H Hgb 13.5 L 12.2 L 12.1 L Plt Count 297 268 261 Const: General: comfortable and no acute distress Resp: Effort & Inspection: normal respiratory effort Cardio: Rate: regular rate GI: Palpation (GI): Soft to palpation and nontender Procedures Date of Service Date of Service: 09/26/21 Progress Note: A&P Assessment and plan (1) Acute diverticulitis: Status: Acute Assessment and Plan: Clinically resolved Diet as tolerated Okay to DC home on oral antibiotics once tolerating diet He is scheduled for a colonoscopy next month Follow-up in the office Fall Risk Details Current Medications: Current Medications Acetaminophen (Acetaminophen 325 Mg Tablet) 650 mg PO Q6H PRN PRN Reason: Pain, Mild (Pain Scale 1-3) Last Admin: 09/25/21 14:24 Dose: 650 mg Documented by: Enoxaparin Sodium (Enoxaparin Sodium 40 Mg/0.4 Ml Syringe) 40 mg SUBCUT Q24H [facility] Last Admin: 09/26/21 03:02 Dose: 40 mg Documented by: Hydroxyzine HCl (Hydroxyzine Hcl 10 Mg Tablet) 10 mg PO DAILY PRN PRN Reason: anxiety Metronidazole (Flagyl) 500 mg in 100 mls @ 100 mls/hr IV Q8H [facility] Last Infusion: 09/26/21 06:23 Dose: Infused Documented by: Levofloxacin (Levaquin) 750 mg in 150 mls @ 100 mls/hr IV Q24H [facility] Last Infusion: 09/25/21 23:47 Dose: Infused Documented by: Lactated Ringer's (Lr) 1,000 mls @ 100 mls/hr IVCONT .Q10H [facility] Last Admin: 09/26/21 03:04 Dose: 100 mls/hr Documented by: Morphine Sulfate (Morphine Sulfate 4 Mg/Ml Cartridge) 4 mg IVPUSH Q4H PRN; Protocol PRN Reason: Pain, Severe (Pain Scale 7-10) Last Admin: 09/24/21 18:09 Dose: 4 mg Documented by: Omeprazole (Omeprazole 40 Mg Capsule.Dr) 40 mg PO DAILY@0630 [facility] Last Admin: 09/26/21 05:15 Dose: 40 mg Documented by: Ondansetron HCl (Ondansetron Hcl 4 Mg/2 Ml Vial) 4 mg IVPUSH Q8H PRN PRN Reason: Nausea and Vomiting Last Admin: 09/24/21 02:42 Dose: 4 mg Documented by: Sodium Chloride (0.9 % Sodium Chloride Flush 3 Ml Syringe) 3 ml IVFLUSH QSHIFT [facility] Last Admin: 09/26/21 07:22 Dose: Not Given Documented by: Time Spent With Patient Time: Total time spent is greater than 50% in coordination of care (as documented) at patient's floor/unit and/or counseling patient: Time with patient: 15 - 24 minutes Quality Stroke Does the patient have a stroke diagnosis?: No VTE Prior VTE?: No VTE Risk Level:: Medical - moderate - high VTE Device Contraindication: Treatment Not Indicated VTE Drug Contraindication: N/A - Med Ordered
--- NOTE | 2021-09-26 14:18 | MHC.CM.PN ---
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 MET WITH PATIENT AND ALSO TELEPHONE HER DAUGHTER BOTH PATIENT AND ARE ACCEPTING OF GOING BACK TO [facility] TO BE TTRANSFWERRED BY [facility] MEDICARE IMM UPDATE ALL PAPER PORK COMPLETED
--- NOTE | 2021-09-26 14:23 | PM.DS ---
DS: Providers Provider Date of Service: 09/26/21 Date of admission: 09/24/21 00:37 Primary care physician: Suma Rueda MD Consults: 09/24/21 09:33 Consult to General Surgery Routine Consulting Provider: William Cee Reason for consultation: recurrent diverticulitis Has provider been notified: No DS: Diagnosis Discharge Diagnosis (1) Acute diverticulitis: Status: Acute DS: Summary Hospital Course Hospital Course: Patient admitted for acute diverticulitis. He was treated with Levaquin and Flagyl. His symptoms improved and he tolerated solid diet. he will be dishcarged on 7 more days augmentin Time Spent with Patient Time attestation: Total time spent providing and/or coordinating discharge services: Discharge coordination time: Greater than 30 minutes Quality: Stroke Does the patient have a stroke diagnosis?: No Physical Exam Vital Signs: Vital Signs: Last Vital Signs Temp 97.5 F 09/26/21 12:00 Pulse 82 09/26/21 12:00 Resp 16 09/26/21 12:00 BP 139/83 09/26/21 12:00 Pulse Ox 95 09/26/21 12:00 Body Mass Index 40.3 General: AO X 3, no acute distress Resp: CTA bilateral, no accessory muscles used CVS: S1,S2,RRR GI: soft, non tender, non distended Neuro: motor grossly intact, alert Psych: appropriate affect, appropriate insight DS: Data Data Completed and Pending Labs on day of discharge: Preliminary micro results at discharge 09/23/21 22:14 Blood Culture - Preliminary Blood - Venous No growth after 48 hours. 09/23/21 22:14 Blood Culture - Preliminary Blood - Venous No growth after 48 hours. Discharge Plan Discharge Patient Disposition: Home, Self-Care Discharge Diagnosis: diverticulitis Referrals: Suma Rueda MD [Primary Care Provider] - 1 Week William Cee MD [Physician] - 2 Weeks Discharge Medications: New amoxicillin-pot clavulanate [Augmentin] 875-125 mg tablet 1 tab PO Q12H Qty: 14 RF: 0 Continued hydroxyzine HCl 10 mg tablet 10 mg PO ONCE PRN (Reason: anxiety) 90 Days Qty: 90 RF: 0 famotidine [Pepcid] 40 mg tablet 40 mg PO BEDTIME Qty: 30 RF: 2 omeprazole 40 mg capsule,delayed release(DR/EC) 40 mg PO DAILY Qty: 30 RF: 2 Discharge Orders: Discharge Order (Routine); Ordered 09/26/21 Ordered By: Piter Unger Diet: advance to usual diet Activity on Discharge: As tolerated Stand Alone Forms: Patient Portal Discharge page Care Plan Goals: recovery Health Concerns: diverticulitis Plan of Treatment: 7 more days augmentin Assessment: see above Discharge Date/Time: 09/26/21 15:06
--- NOTE | 2021-09-26 15:15 | MHC.CM.PN ---
NURSE SOLAR SALES NOTE LATE ENTRY ELECTRONIC MEDICAL RECORD REVIEWED- CASE DISCUSSED WITH STAFF NURSE AND HOSPITLAIST , PATIENT AWARE OF DISCHARGE TODAY HOME NO SERVICES REQUIRED . DISCHARGE PLAN HOME NO SERVICES LIVES WITH HIS AND CHILDREN TRANSPORTASTION HIS PCP DR OSIEL BRANCH PATIENT TO CALL FOR [facility] DISCHARGE FOLLOW UP
--- NOTE | 2021-10-05 11:35 | P.CDIR_ITS ---
Documented by User: Velma Patterson RN 10/05/21 11:43 Retrospective Query PHYSICIAN'S DOCUMENTATION REQUEST Date of Query: 10/05/21 1136 Patient Name: Pedro Luis Calero Admit Date: 09/24/21 Dear Doctor, A review of the medical record indicates additional documentation may be needed. Please review below and update the documentation accordingly. Risk Factors/Clinical Indicators/Treatments Query generated on 09/25/21 for a diagnosis associated with the clinical indicators: T 100.4P 101WBC 15.7Per surgery consult 09/24/21: CT scan demonstrated wall thickening and significant inflammatory changes within the sigmoid without abscess. Uncomplicated Diverticulitis Treated with IV ATB, bowel rest and prn analgesic Query answered on 09/27/19: Sepsis Sepsis diagnosis is not documented in the Discharge Summary 09/26/21 Based on the above, could you clarify in the Progress Notes the appropriate diagnosis, if significant, that supports the above abnormalities and additional evaluation, monitoring, and/or treatment rendered: Sepsis * Other (please specify) * Unable to determine Use of terms such as suspected, likely, concern for, or probable (associated with a specific diagnosis that is being evaluated, monitored, or treated as if it exists) are acceptable and can be coded in the inpatient setting, when documented at the time of discharge. Thank you, Velma Patterson RN Extension: [phone] Please use your independent medical judgment in providing your response. THIS QUERY IS PART OF THE PERMANENT MEDICAL RECORD Documented by User: Piter Unger MD 10/09/21 09:21 Retrospective Query Provider Response: Other (sepsis due to acute diverticulitis)
== END 2021-09-26 15:06 | disposition home or self-care (01) | DRG 720 ==
LOC: HO.ED 09-24 00:33 → HO.EDOVER 09-24 00:43 → HO.S3 09-24 17:12
PROVIDERS: Physician Assistant Medical; Admitting Provider Internal Medicine; Emergency Provider Internal Medicine; PCP Internal Medicine; Visit Provider Internal Medicine
DX: A41.9 Sepsis, unspecified organism (principal); K57.32 Diverticulitis of large intestine without perforation or abscess without bleeding; E66.9 Obesity, unspecified; Z68.41 Body mass index [BMI] 40.0-44.9, adult; F41.9 Anxiety disorder, unspecified; K52.9 Noninfective gastroenteritis and colitis, unspecified; K21.9 Gastro-esophageal reflux disease without esophagitis; Z20.822 Contact with and (suspected) exposure to COVID-19; Z23 Encounter for immunization; Z79.899 Other long term (current) drug therapy
CPT/HCPCS: 36415; 74177; 80048; 80053; 80076; 81003; 83605; 83690; 85025; 85027; 87040; 87635; 90686; 93005; 96361; 96365; 96375; 96376; 99285; J0696; J1170; J1650; J1956; J2060; J2270; J2405; J2543; Q9967

== ENCOUNTER 2021-09-29 07:43 | Inpatient (IN) | payer BC, SELFPAY ==
--- NOTE | ~2021-09-29 | CT_ITS ---
EXAMINATION: CT ABDOMEN AND PELVIS WITH CONTRAST CLINICAL INFORMATION: Left lower quadrant pain COMPARISON: Previous CT scans most recent 09/23/2021 TECHNIQUE: Multidetector volumetric images were obtained from the superior aspect of the liver through the pubic symphysis following administration 85 mL of Omnipaque 350 intravenous contrast. Sagittal and coronal reformatted images were obtained on the technologist's workstation. Oral contrast: Yes This CT examination was performed using dose optimization techniques as appropriate, variously including the following: *Automated exposure control *Adjustment of mA and/or kV according to patient size (this includes techniques or standardized protocols for targeted exams where dose is matched to indication/reason for exam; i.e. extremities or head) *Use of iterative reconstruction technique DLP: 771 mGy-cm FINDINGS: LUNG BASES: The visualized lung bases are unremarkable. LIVER, GALLBLADDER, AND BILIARY TREE: The liver is normal in size and shape. The liver is low in attenuation suggestive of fatty infiltration.. No focal hepatic lesion or biliary ductal dilatation is present. The gallbladder is unremarkable with no evidence of radiopaque gallstones, gallbladder wall thickening, or obvious pericholecystic inflammatory changes. PANCREAS: Unremarkable. SPLEEN: Unremarkable. ADRENAL GLANDS: Unremarkable. KIDNEYS AND URETERS: The kidneys are normal in size, shape, and attenuation. No hydronephrosis, hydroureter, or calculi seen. No perinephric stranding. BLADDER: Unremarkable. GASTROINTESTINAL TRACT: There is worsening diverticulitis of the sigmoid colon wall with wall thickening, stranding and stranding of the surrounding fat. There is a small focal low-attenuation fluid and air collection superior to the proximal sigmoid colon tracking towards small bowel loops suggestive of small abscess or contained perforation. This measures 2 x 2 by 1 cm in longitudinal AP and transverse dimension. This is new from 09/23/2021 exam. No evidence of free air is seen. No evidence of obstruction is seen. The appendix is normal. The stomach is normal.. ABDOMINAL WALL: No significant hernia is appreciated. LYMPH NODES: Normal. VASCULAR: Unremarkable. PELVIC VISCERA: Unremarkable. OSSEOUS STRUCTURES: Unremarkable. CT/CT abdomen pelvis w con IMPRESSION: Worsening sigmoid diverticulitis. New small fluid and air collection superior to the proximal sigmoid colon tracking superiorly toward the small bowel. Differential would include a developing small abscess and contained perforation. No evidence of free air is seen.
--- NOTE | ~2021-09-29 | CT_ITS ---
EXAMINATION: CT ABDOMEN AND PELVIS WITH CONTRAST CLINICAL INFORMATION: Follow-up diverticular abscess COMPARISON: Previous CT scans most recent 09/29/2021 TECHNIQUE: Multidetector volumetric images were obtained from the superior aspect of the liver through the pubic symphysis following administration 85 mL of Omnipaque 350 intravenous contrast. Sagittal and coronal reformatted images were obtained on the technologist's workstation. Oral contrast: Yes This CT examination was performed using dose optimization techniques as appropriate, variously including the following: *Automated exposure control *Adjustment of mA and/or kV according to patient size (this includes techniques or standardized protocols for targeted exams where dose is matched to indication/reason for exam; i.e. extremities or head) *Use of iterative reconstruction technique DLP: 606 mGy-cm FINDINGS: LUNG BASES: The visualized lung bases are unremarkable. LIVER, GALLBLADDER, AND BILIARY TREE: The liver is low in attenuation suggestive of fatty infiltration.. No focal hepatic lesion or biliary ductal dilatation is present. The gallbladder is unremarkable with no evidence of radiopaque gallstones, gallbladder wall thickening, or obvious pericholecystic inflammatory changes. PANCREAS: Unremarkable. SPLEEN: Unremarkable. ADRENAL GLANDS: Unremarkable. KIDNEYS AND URETERS: The kidneys are normal in size, shape, and attenuation. No hydronephrosis, hydroureter, or calculi seen. No perinephric stranding. BLADDER: Unremarkable. GASTROINTESTINAL TRACT: There is diverticulitis of the sigmoid colon with wall thickening and stranding of the surrounding fat. Small fluid collection superior to the sigmoid colon does not appear appreciably changed in size. This again measures 2 x 2 x 1 cm. Air in the collection is no longer seen. No free air is seen. There is no evidence of obstruction. Small and large bowel is otherwise normal. The appendix is normal. The stomach is normal. ABDOMINAL WALL: No significant hernia is appreciated. LYMPH NODES: Normal. VASCULAR: Unremarkable. PELVIC VISCERA: Unremarkable. OSSEOUS STRUCTURES: Unremarkable. CT/CT abdomen pelvis w con IMPRESSION: Sigmoid diverticulitis. No change in size in the small fluid collection superior to the sigmoid colon tracking toward the small bowel suggestive of small abscess or contained perforation. Air in the fluid collection is no longer seen. No free air or obstruction. Fatty liver.
[2021-09-29 07:48] VITALS: BP 114/78; PULSE 101; RESP 18; TEMP 36.7; O2SAT 98; BMI 39.0
--- NOTE | 2021-09-29 07:59 | ED_ITS ---
HPI - Abdominal Pain General Chief Complaint: Abdominal Pain Stated Complaint: diverticulitis Time Seen by Provider: 09/29/21 07:58 History of Present Illness HPI narrative: Patient is a 36-year-old male presents today with a history of diverticulitis. Patient was in the hospital 6 days prior last Friday. In the hospital for 4 days. Left on Friday. Presents today with having increasing abdominal pain a left lower quadrant. The pain is sharp. Positive diaphoresis. Patient is still on Augmentin. Pain similar to previous bouts of diverticulitis. No vomiting. Positive nausea. No diarrhea. Patient from home. No cough no congestion or upper respiratory symptoms. Related Data Home Medications Medication Instructions Recorded Confirmed hydroxyzine HCl 10 mg tablet 1 tab PO BEDTIME 09/29/21 09/29/21 Previous Rx's Medication Instructions Recorded famotidine 40 mg tablet (Pepcid) 40 mg PO BEDTIME #30 tab 07/20/21 omeprazole 40 mg capsule,delayed 40 mg PO DAILY #30 cap 07/20/21 release amoxicillin 875 mg-potassium 1 tab PO Q12H #14 tab 09/26/21 clavulanate 125 mg tablet (Augmentin) Allergies Allergy/AdvReac Type Severity Reaction Status Date / Time No Known Allergies Allergy Verified 09/29/21 07:48 [No Known Allergies*] Review of Systems Review of Systems Positive abdominal pain No cough no congestion or upper respiratory symptoms Physical Exam Vital Signs: Vital Signs: Last Vital Signs Temp 98.2 F 09/29/21 10:12 Pulse 69 09/29/21 10:12 Resp 17 09/29/21 10:12 BP 138/84 09/29/21 10:12 Pulse Ox 97 09/29/21 10:12 Body Mass Index 39.0 Appearance: Alert. Oriented X3. No acute distress. Eyes: Pupils equal, round and reactive to light. ENT: Pharynx normal. Neck: Normal inspection. Neck supple. No lymph nodes noted. No crepitus CVS: Normal heart rate and rhythm. Pulses normal. Normal S1 and S2 Respiratory: No respiratory distress. Breath sounds normal. No Wheezing. No rales Abdomen: Soft positive left lower quadrant tenderness no rebound. No rigidity. No distention. good BS x4 Skin: Skin warm and dry. Normal skin color. Normal skin turgor. Extremities: No lower extremity edema. Neurovascular intact to all extremities. No Lacerations. No Rash Neuro: Oriented X 3. No motor deficit. No sensory deficit. Moving all extermities. No slurred speech MDM - Abdominal Pain MDM Narrative Medical decision making narrative: Patient's CT scan show worsening di verticulitis. Antibiotics started case discussed with surgery patient is to be admitted. Pain is currently controlled. Finding explained to patient. In stable condition awaiting admission. Lab Data Result diagrams: 09/29/21 08:18 09/29/21 08:18 Labs: Lab Results 09/29/21 09/29/21 09/29/21 Range/Units 08:18 08:18 10:51 WBC 10.4 (4.8-10.8) X10*3/uL RBC 4.78 (4.60-5.80) X10*6/uL Hgb 13.9 L (14.0-18.0) g/dl Hct 41.5 L (42.0-52.0) % MCV 86.8 (80.0-98.0) fL MCH 29.1 (27.0-33.0) pg MCHC 33.5 (31.0-36.0) g/dl RDW 12.6 (11.0-16.0) % Plt Count 363 D (160-400) X10*3/uL MPV 8.7 L (9.4-12.4) fL Immature Gran % (Auto) 0.7 H (0.0-0.4) % Neut % (Auto) 67.9 (45-73) % Lymph % (Auto) 21.9 (20-40) % Meriwether % (Auto) 6.9 (2-11) % Eos % (Auto) 1.9 (0-4) % Baso % (Auto) 0.7 (0-2) % Lymph # (Auto) 2.3 (1.2-4.9) X10*3/uL Meriwether # (Auto) 0.7 (0.1-1.2) X10*3/uL Eos # (Auto) 0.2 (0.0-0.4) X10*3/uL Baso # (Auto) 0.1 (0.0-0.2) X10*3/uL Abs Immat Gran (auto) 0.07 H (0.00-0.03) X10*3/uL Absolute Neuts (auto) 7.1 (2.0-8.3) x10*3/uL Absolute Nucleated RBC 0.000 (0.0-0.012) X10*3/uL Nucleated RBC % (auto) 0.0 (0.0-0.2) /100WBC Sodium 143 (135-145) mmol/L Potassium 4.5 (3.3-5.1) mmol/L Chloride 107 (96-108) mmol/L Carbon Dioxide 28 (22-29) mmol/L Anion Gap 13 (12-20) BUN 9 (9-16) mg/dL Creatinine 1.12 (0.5-1.4) mg/dL Estim Creat Clear Calc 103.9 Estimated GFR > 60 Random Glucose 111 (60-115) mg/dL Calcium 9.5 D (8.4-10.2) mg/dL Total Bilirubin 0.5 (0.0-1.0) mg/dL AST 32 D (5-37) U/L ALT 50 H (0-40) U/L Alkaline Phosphatase 46 D (39-117) U/L Total Protein 7.3 (6.5-8.0) g/dL Albumin 4.3 (3.5-5.0) g/dL Lipase 28 (8-78) U/L COVID-19 (SHERWIN) Negative (Negative) COVID-19 Clin Com See Note Discharge Plan Discharge Clinical Impression: Acute diverticulitis Patient Disposition: Admitted As Inpatient Prescriptions: No Action amoxicillin-pot clavulanate [Augmentin] 875-125 mg tablet 1 tab PO Q12H Qty: 14 RF: 0 hydroxyzine HCl 10 mg tablet 1 tab PO BEDTIME RF: 0 famotidine [Pepcid] 40 mg tablet 40 mg PO BEDTIME Qty: 30 RF: 2 omeprazole 40 mg capsule,delayed release(DR/EC) 40 mg PO DAILY Qty: 30 RF: 2 PMFSH Past Medical History Attestation statement: The following information was validated with the patient. Medical History (Updated 09/29/21 @ 12:11 by Evelia Higgins MD) Anxiety GERD (gastroesophageal reflux disease) IBS (irritable bowel syndrome) Sleep apnea Surgical History History of medial meniscus repair of left knee History of tonsillectomy and adenoidectomy Family History Family History Father History of heart disease Mother History of lung cancer Hx of breast cancer History of skin cancer Social History Social History Household Members: Family Household Members Other:: 2 kids Housing: House Are you a primary childcare worker to a significant other at home: No Do you presently have visiting nurse or other home services: No Alcohol intake: never Patient Tobacco Use Status: Never used Tobacco Use of substances other than those prescribed or required for medical reasons: No Advance Directives: No Advance Directives Information Provided: No service: Yes Current occupational status: employed Current occupation: [employer]
[2021-09-29] MEDS: ondansetron HCL 4 MG/2 ML VIAL IVPUSH (08:25)
[2021-09-29] MEDS: 0.9 % Sodium Chloride 1,000 ML 999 ML IV (08:25)
[2021-09-29 08:26] LABS: MANUAL DIFF FLAG NO
[2021-09-29] MEDS: HYDROmorphone HCl 0.5 MG/0.5 ML SYRINGE IVPUSH (08:26)
[2021-09-29 08:32] LABS: Basophils Absolute Auto 0.1 X10*3/uL (0.0-0.2); Basophils Percent Auto 0.7 % (0-2); Eosinophils Absolute Auto 0.2 X10*3/uL (0.0-0.4); Eosinophils Percent Auto 1.9 % (0-4); Hematocrit 41.5 % (42.0-52.0); Hemoglobin 13.9 g/dl (14.0-18.0); Imm Gran Abs Auto 0.07 X10*3/uL (0.00-0.03); Imm Gran Pct Auto 0.7 % (0.0-0.4); Lymphocytes Absolute Auto 2.3 X10*3/uL (1.2-4.9); Lymphocytes Percent Auto 21.9 % (20-40); Mean Corpuscular HGB Conc 33.5 g/dl (31.0-36.0); Mean Corpuscular Hemoglobin 29.1 pg (27.0-33.0); Mean Corpuscular Volume 86.8 fL (80.0-98.0); Mean Platelet Volume 8.7 fL (9.4-12.4); Monocytes Absolute Auto 0.7 X10*3/uL (0.1-1.2); Monocytes Percent Auto 6.9 % (2-11); Neutrophils Absolute Auto 7.1 x10*3/uL (2.0-8.3); Neutrophils Percent Auto 67.9 % (45-73); Platelet Count 363 X10*3/uL (160-400); Red Blood Count 4.78 X10*6/uL (4.60-5.80); Red Cell Distribution Width 12.6 % (11.0-16.0); White Blood Count 10.4 X10*3/uL (4.8-10.8)
[2021-09-29 08:56] VITALS: BP 129/80; PULSE 67; RESP 16; O2SAT 94
[2021-09-29 09:06] LABS: Alanine Aminotransferase 50 U/L (0-40); Albumin Level 4.3 g/dL (3.5-5.0); Alkaline Phosphatase 46 U/L (39-117); Anion Gap 13 (12-20); Aspartate Amino Transferase 32 U/L (5-37); Bilirubin Total 0.5 mg/dL (0.0-1.0); Blood Urea Nitrogen 9 mg/dL (9-16); Calcium 9.5 mg/dL (8.4-10.2); Carbon Dioxide 28 mmol/L (22-29); Chloride 107 mmol/L (96-108); Creatinine Clr Calc Pharmacy 103.9; Estimated Glomerular Filt Rate > 60; Glucose Random 111 mg/dL (60-115); Lipase 28 U/L (8-78); Potassium 4.5 mmol/L (3.3-5.1); Sodium 143 mmol/L (135-145); Total Protein 7.3 g/dL (6.5-8.0)
[2021-09-29] MEDS: iohexoL 350 MG/ML 100 ML INFUS..BTL IV (09:36)
[2021-09-29 10:12] VITALS: BP 138/84; PULSE 69; RESP 17; TEMP 36.8; O2SAT 97
[2021-09-29] MEDS: cefTRIAXone sodium 1 GM in 0.9 % Sodium Chloride 50 ML IV (10:24)
[2021-09-29] MEDS: metroNIDAZOLE/NS 500 MG/100 ML PIGGYBACK 100 MG IV (10:59)
--- NOTE | 2021-09-29 10:59 | PC.NURSE ---
md at beside earlier, pt aware of plan of care for admission to hosp.
[2021-09-29 11:13] LABS: COVID-19 Test Negative (Negative); IDNOW Serial# 9DD0AD1C
--- NOTE | 2021-09-29 11:23 | PC.NURSE ---
dr. walker at bedside, pt aware of plan of are for admission to hosp.
--- NOTE | 2021-09-29 11:43 | P.HPGS_ITS ---
History of Present Illness History of Present Illness Date of Service: 09/29/21 Chief complaint: diverticulitis Narrative: Pedro Luis Calero is a 36 year old male who was discharged from [facility] on 09/26/21 after a 3 day admission for treatment of acute sigmoid diverticulitis. He has a past history of uncomplicated sigmoid diverticulitis and has experienced multiple episodes in the past. He reports that he had some increase in left lower quadrant pain on the day of discharge, but says that he thought that it was normal in was related to eating at that time, so he did not mention it. Following discharge, the pain worsened somewhat. He called the surgery office yesterday and reports that was advised to go to the emergency department. He elected to continue observation at home, but this morning, because of the persistent moderate left lower quadrant pain, he elected to come in. He does not report fever at home. He does not have nausea or vomiting. He had a loose bowel movement yesterday, no rectal bleeding. A repeat CT of the abdomen and pelvis was obtained in the emergency department and demonstrated: IMPRESSION: Worsening sigmoid diverticulitis. New small fluid and air collection superior to the proximal sigmoid colon tracking superiorly toward the small bowel. Differential would include a developing small abscess and contained perforation. No evidence of free air is seen.? Review of Systems Constitutional: Constitutional: Reports no additional constitutional complaints and Denies headache(s) Eyes: Eyes: Denies requires corrective lenses ENT: Denies dizziness and Denies headache(s) Cardiovascular: Cardiovascular: Reports chest pain (Low substernal, felt to be related to GERD), Denies irregular heart rhythm, Denies palpitations and Denies dyspnea on exertion Respiratory: Respiratory: Denies cough, Denies dyspnea on exertion and Denies wheezing Gastrointestinal: Gastrointestinal: Reports as per HPI, Reports abdominal pain, Denies hematochezia and Denies nausea Genitourinary: Genitourinary: Reports no additional male genitourinary complaints Musculoskeletal: Musculoskeletal: Reports no additional musculoskeletal complaints Integumentary/Breasts: Skin/Breast: Denies pruritus and Denies rash Neurologic: Denies dizziness and Denies headache(s) Psychiatric: Psychiatric: Reports anxiety Endocrine: Endocrine: Denies palpitations Allergic/Immunologic: Allergic/Immunologic: Denies wheezing [facility] Past Medical History Medical History (Updated 09/29/21 @ 11:52 by Brooklyn Salas MD) Anxiety GERD (gastroesophageal reflux disease) IBS (irritable bowel syndrome) Sleep apnea Family History Family History Father History of heart disease Mother History of lung cancer Hx of breast cancer History of skin cancer Surgical History Surgical History History of medial meniscus repair of left knee History of tonsillectomy and adenoidectomy Social History Social History Household Members: Family Household Members Other:: 2 kids Housing: House Are you a primary animal care giver to a significant other at home: No Do you presently have visiting nurse or other home services: No Alcohol intake: never Patient Tobacco Use Status: Never used Tobacco Use of substances other than those prescribed or required for medical reasons: No Advance Directives: No Advance Directives Information Provided: No service: Yes Current occupational status: employed Current occupation: [employer] Allergies Allergy/AdvReac Type Severity Reaction Status Date / Time No Known Allergies Allergy Verified 09/29/21 07:48 [No Known Allergies*] Active Medications: Current Medications Pharmacy Consult (Consult Rx Perform Med Rec) 1 each MISCELLANE ONCE PRN PRN Reason: Consult order Physical Exam Vital Signs: Vital Signs: Last Vital Signs Temp 98.2 F 09/29/21 10:12 Pulse 69 09/29/21 10:12 Resp 17 09/29/21 10:12 BP 138/84 09/29/21 10:12 Pulse Ox 97 09/29/21 10:12 Body Mass Index 39.0 Const: General: cooperative, no acute distress, alert and awake HENMT: Head: Yes normocephalic and Yes atraumatic Eyes: General: appearance normal, both eyes and all related structures Neck: Neck: Yes trachea midline and Yes supple Resp: Effort & Inspection: normal respiratory effort Auscultation: clear to auscultation bilaterally GI: Other: Round, soft, nondistended, normoactive bowel sounds, no palpable masses, no organomegaly, marked tenderness left lower quadrant Skin: Other: Normal color, warm and dry Extrem: General: Yes normal to inspection Results Results Labs: Short CBC 09/29/21 Range/Units 08:18 WBC 10.4 (4.8-10.8) X10*3/uL Hgb 13.9 L (14.0-18.0) g/dl Hct 41.5 L (42.0-52.0) % Plt Count 363 D (160-400) X10*3/uL BMP 09/29/21 08:18 Sodium 143 Potassium 4.5 Chloride 107 Carbon Dioxide 28 BUN 9 Creatinine 1.12 Calcium 9.5 D Liver Function 09/29/21 Range/Units 08:18 Total Bilirubin 0.5 (0.0-1.0) mg/dL AST 32 D (5-37) U/L ALT 50 H (0-40) U/L Alkaline Phosphatase 46 D (39-117) U/L Albumin 4.3 (3.5-5.0) g/dL Abdomen CT scan report/results: report reviewed and image reviewed CT scan - pelvis: report reviewed and image reviewed Assessment and Plan (1) Acute diverticulitis: Status: Acute 36-year-old male, recently discharged following treatment for acute sigmoid diverticulitis, now presenting with worsening pain and new CT findings of a small air and fluid containing collection raising concern for developing abscess/contained perforation. I discussed the findings with him and recommended readmission for IV antibiotic therapy and further treatment as needed. He agreed. He will be placed on Zosyn. We discussed the possible need for repeat scanning and abscess drainage which will depend upon his progress. He will be placed on clear liquid diet initially. He has a recent diagnosis of sleep apnea, but has not been able to tolerate CPAP. Quality Stroke Does the patient have a stroke diagnosis?: No VTE Prior VTE?: No VTE Risk Level:: Medical - low VTE Device Contraindication: N/A - Device Ordered VTE Drug Contraindication: Treatment Not Indicated Procedures Date of Service Date of Service: 09/29/21
--- NOTE | 2021-09-29 12:08 | PHA.MEDREC ---
Pharmacy Consult ? Medication Reconciliation Pharmacy has completed the medication reconciliation. Patient also takes OTC supplement GI advantage from company [employer]
[2021-09-29] MEDS: Morphine Sulfate 4 MG/ML CARTRIDGE IVPUSH ×2 (14:28→17:32)
[2021-09-29 14:32] VITALS: BP 133/95; PULSE 71; O2SAT 95
--- NOTE | 2021-09-29 14:44 | PC.NURSE ---
rn to rn report given to maryjane bateman aware of plan of care for admission to hosp.
[2021-09-29 14:53] LABS: Appearance Urine CLEAR; Color Urine YELLOW; Glucose Urine UA NEG (NEG); Leukocyte Esterase Urine NEG (NEG); Nitrite Urine NEG (NEG); PH 5.5 (5.0-8.0); Urine Blood NEG (NEG); Urine Ketones NEG (NEG); Urine Protein NEG (NEG-TRACE)
[2021-09-29] MEDS: Piperacillin Sodium/Tazobactam 3.375 GM in 0.9 % Sodium Chloride 50 ML IV ×2 (15:25→20:17)
[2021-09-29] MEDS: Dextrose 5 % and Lactated Ring 1,000 ML 100 ML IVCONT (15:26)
[2021-09-29 15:53] VITALS: BP 133/84; PULSE 73; RESP 16; TEMP 37.1; O2SAT 94
[2021-09-29] MEDS: oxyCODONE HCl Immed Release 5 MG TABLET PO ×2 (16:15→20:25)
[2021-09-29] MEDS: Famotidine 20 MG TABLET 40 MG PO (20:51)
[2021-09-29] MEDS: LORazepam 2 MG/ML VIAL 1 MG IVPUSH (20:51)
[2021-09-30] VITALS: BP 111/67; PULSE 72; RESP 20; TEMP 36.2; O2SAT 98
[2021-09-30] MEDS: Piperacillin Sodium/Tazobactam 3.375 GM in 0.9 % Sodium Chloride 50 ML IV ×4 (02:28→20:25)
[2021-09-30] MEDS: ondansetron HCL 4 MG/2 ML VIAL IVPUSH (02:33)
[2021-09-30] MEDS: Dextrose 5 % and Lactated Ring 1,000 ML 100 ML IVCONT ×2 (02:35→15:37)
[2021-09-30] MEDS: Morphine Sulfate 4 MG/ML CARTRIDGE IVPUSH ×2 (03:17→09:43)
[2021-09-30 04:37] VITALS: BP 115/73; PULSE 70; O2SAT 97
[2021-09-30 07:59] VITALS: BP 131/90; PULSE 60; RESP 18; TEMP 36.8; O2SAT 95
--- NOTE | 2021-09-30 08:45 | MHC.CM.PN ---
PATIENT IS FULLY INDEPENDENT WITH ALL ACTIVITIES. NO DME OR VNA SERVICES. COVID VACCINATED SERIES (MODERNA) NO HCP ON FILE AND PATIENT IS AWARE THAT CASE MANAGEMENT CAN ASSIST WITH COMPLETION OF ONE IF HE CHOOSES TO DO SO. CASE MANAGEMENT FOLLOWING FOR DC PLANS.
[2021-09-30] MEDS: Omeprazole 40 MG CAPSULE.DR PO (09:29)
--- NOTE | 2021-09-30 12:56 | PM.PNGS ---
Subjective Subjective Date of Service: 09/30/21 Interval history: No significant change in left lower quadrant pain. He reports some mild nausea that seem to be associated with the Ativan, but the Ativan has helped his anxiety significantly and he prefers to continue it. Had a bowel movement. Physical Exam Vital Signs: Vital Signs: Last Vital Signs Temp 98.2 F 09/30/21 07:59 Pulse 60 09/30/21 07:59 Resp 18 09/30/21 07:59 BP 131/90 H 09/30/21 07:59 Pulse Ox 95 09/30/21 07:59 Body Mass Index 39.0 Const: General: cooperative, alert and awake Resp: Effort & Inspection: normal respiratory effort Auscultation: clear to auscultation bilaterally Cardio: Rate: regular rate Rhythm: regular rhythm GI: Other: Round, soft, bowel sounds active, tender left lower quadrant somewhat improved from yesterday Skin: Other: Normal color, warm and dry Objective Data Active Medications Acetaminophen (Acetaminophen 325 Mg Tablet) 650 mg PO Q6H PRN PRN Reason: Fever Famotidine (Famotidine 20 Mg Tablet) 40 mg PO BEDTIME POPPY Last Admin: 09/29/21 20:51 Dose: 40 mg Documented by: CHOLO Hydroxyzine HCl (Hydroxyzine Hcl 10 Mg Tablet) 10 mg PO BEDTIME POPPY Last Admin: 09/29/21 20:56 Dose: Not Given Documented by: CHOLO Non-Admin Reason: Patient Refused Dextrose/Lactated Ringer's (D5lr) 1,000 mls @ 100 mls/hr IVCONT .Q10H [facility] Last Admin: 09/30/21 02:35 Dose: 100 mls/hr Documented by: CHOLO Piperacillin Sod/Tazobactam (Sod 3.375 gm/ Sodium Chloride) 50 mls @ 100 mls/hr IV Q6H [facility] Last Infusion: 09/30/21 10:39 Dose: 0 mls/hr Documented by: IVANA Lorazepam (Lorazepam 2 Mg/Ml Vial) 1 mg IVPUSH Q8H PRN PRN Reason: Anxiety Last Admin: 09/29/21 20:51 Dose: 1 mg Documented by: CHOLO Morphine Sulfate (Morphine Sulfate 4 Mg/Ml Cartridge) 4 mg IVPUSH Q3H PRN; Protocol PRN Reason: Pain, severe Last Admin: 09/30/21 09:43 Dose: 4 mg Documented by: IVANA Omeprazole (Omeprazole 40 Mg Capsule.Dr) 40 mg PO DAILY [facility] Last Admin: 09/30/21 09:29 Dose: 40 mg Documented by: IVANA Ondansetron HCl (Ondansetron Hcl 4 Mg/2 Ml Vial) 4 mg IVPUSH Q8H PRN PRN Reason: Nausea Last Admin: 09/30/21 02:33 Dose: 4 mg Documented by: CHOLO Oxycodone HCl (Oxycodone Hcl Immed Release 5 Mg Tablet) 5 mg PO Q4H PRN PRN Reason: Pain, Moderate (Pain Scale 4-6 Last Admin: 09/29/21 20:25 Dose: 5 mg Documented by: CHOLO Pharmacy Consult (Consult Rx Perform Med Rec) 1 each MISCELLANE ONCE PRN PRN Reason: Consult order Labs CBC & Chem 7: 09/29/21 08:18 09/29/21 08:18 Labs: Laboratory Results - last 24 hr 09/29/21 14:35 Urine Color YELLOW Urine Appearance CLEAR Urine pH 5.5 Ur Specific Sullivan 1.010 Urine Protein NEG Urine Glucose (UA) NEG Urine Ketones NEG Urine Blood NEG Urine Nitrite NEG Ur Leukocyte Esterase NEG Procedures Date of Service Date of Service: 09/30/21 Progress Note: A&P Assessment and plan (1) Acute diverticulitis: Status: Acute Assessment and Plan: Sigmoid diverticulitis, readmitted with worsening left lower quadrant abdominal pain and CT findings concerning for possible a developing abscess. On Zosyn, clear liquid diet. Fall Risk Details Current Medications: Current Medications Acetaminophen (Acetaminophen 325 Mg Tablet) 650 mg PO Q6H PRN PRN Reason: Fever Famotidine (Famotidine 20 Mg Tablet) 40 mg PO BEDTIME [facility] Last Admin: 09/29/21 20:51 Dose: 40 mg Documented by: Hydroxyzine HCl (Hydroxyzine Hcl 10 Mg Tablet) 10 mg PO BEDTIME [facility] Last Admin: 09/29/21 20:56 Dose: Not Given Documented by: Dextrose/Lactated Ringer's (D5lr) 1,000 mls @ 100 mls/hr IVCONT .Q10H [facility] Last Admin: 09/30/21 02:35 Dose: 100 mls/hr Documented by: Piperacillin Sod/Tazobactam (Sod 3.375 gm/ Sodium Chloride) 50 mls @ 100 mls/hr IV Q6H POPPY Last Infusion: 09/30/21 10:39 Dose: Infused Documented by: Lorazepam (Lorazepam 2 Mg/Ml Vial) 1 mg IVPUSH Q8H PRN PRN Reason: Anxiety Last Admin: 09/29/21 20:51 Dose: 1 mg Documented by: Morphine Sulfate (Morphine Sulfate 4 Mg/Ml Cartridge) 4 mg IVPUSH Q3H PRN; Protocol PRN Reason: Pain, severe Last Admin: 09/30/21 09:43 Dose: 4 mg Documented by: Omeprazole (Omeprazole 40 Mg Capsule.Dr) 40 mg PO DAILY POPPY Last Admin: 09/30/21 09:29 Dose: 40 mg Documented by: Ondansetron HCl (Ondansetron Hcl 4 Mg/2 Ml Vial) 4 mg IVPUSH Q8H PRN PRN Reason: Nausea Last Admin: 09/30/21 02:33 Dose: 4 mg Documented by: Oxycodone HCl (Oxycodone Hcl Immed Release 5 Mg Tablet) 5 mg PO Q4H PRN PRN Reason: Pain, Moderate (Pain Scale 4-6 Last Admin: 09/29/21 20:25 Dose: 5 mg Documented by: Pharmacy Consult (Consult Rx Perform Med Rec) 1 each MISCELLANE ONCE PRN PRN Reason: Consult order Time Spent With Patient Time: Total time spent is greater than 50% in coordination of care (as documented) at patient's floor/unit and/or counseling patient: Time with patient: less than 15 minutes Quality Stroke Does the patient have a stroke diagnosis?: No VTE Prior VTE?: No VTE Risk Level:: Medical - low VTE Device Contraindication: N/A - Device Ordered VTE Drug Contraindication: Treatment Not Indicated
[2021-09-30] MEDS: oxyCODONE HCl Immed Release 5 MG TABLET PO (14:52)
[2021-09-30 15:47] VITALS: BP 120/63; PULSE 74; RESP 17; TEMP 36.3; O2SAT 95
[2021-09-30] MEDS: hydrOXYzine HCL 10 MG TABLET PO (20:25)
[2021-09-30] MEDS: Famotidine 20 MG TABLET 40 MG PO (20:25)
[2021-09-30] MEDS: LORazepam 2 MG/ML VIAL 1 MG IVPUSH (20:32)
[2021-10-01] VITALS: BP 127/80; PULSE 74; RESP 18; TEMP 36.6; O2SAT 92
[2021-10-01] MEDS: Dextrose 5 % and Lactated Ring 1,000 ML 100 ML IVCONT ×2 (03:14→15:36)
[2021-10-01] MEDS: Piperacillin Sodium/Tazobactam 3.375 GM in 0.9 % Sodium Chloride 50 ML IV ×4 (03:14→20:28)
[2021-10-01 08:00] VITALS: BP 138/88; PULSE 76; RESP 18; TEMP 36.5; O2SAT 98
[2021-10-01] MEDS: oxyCODONE HCl Immed Release 5 MG TABLET PO (09:14)
[2021-10-01] MEDS: Omeprazole 40 MG CAPSULE.DR PO (09:15)
--- NOTE | 2021-10-01 09:39 | PM.PNGS ---
Subjective Subjective Date of Service: 10/01/21 Interval history: Feels better Less pain No nausea or vomiting Has flatus Physical Exam Vital Signs: Vital Signs: Last Vital Signs Temp 97.7 F 10/01/21 08:00 Pulse 76 10/01/21 08:00 Resp 18 10/01/21 08:00 BP 138/88 10/01/21 08:00 Pulse Ox 98 10/01/21 08:00 Body Mass Index 39.0 Const: General: comfortable and no acute distress Resp: Effort & Inspection: normal respiratory effort Cardio: Rate: regular rate GI: Other: Mild tenderness on the left lower abdomen, no guarding or rebound Palpation (GI): Soft to palpation and not firm Objective Data Active Medications Acetaminophen (Acetaminophen 325 Mg Tablet) 650 mg PO Q6H PRN PRN Reason: Fever Famotidine (Famotidine 20 Mg Tablet) 40 mg PO BEDTIME [facility] Last Admin: 09/30/21 20:25 Dose: 40 mg Documented by: DER Hydroxyzine HCl (Hydroxyzine Hcl 10 Mg Tablet) 10 mg PO BEDTIME [facility] Last Admin: 09/30/21 20:25 Dose: 10 mg Documented by: DRE Dextrose/Lactated Ringer's (D5lr) 1,000 mls @ 100 mls/hr IVCONT .Q10H [facility] Last Admin: 10/01/21 05:44 Dose: Not Given Documented by: SHERRY Non-Admin Reason: IV Running Piperacillin Sod/Tazobactam (Sod 3.375 gm/ Sodium Chloride) 50 mls @ 100 mls/hr IV Q6H [facility] Last Admin: 10/01/21 09:15 Dose: 100 mls/hr Documented by: TONJA Lorazepam (Lorazepam 2 Mg/Ml Vial) 1 mg IVPUSH Q8H PRN PRN Reason: Anxiety Last Admin: 09/30/21 20:32 Dose: 1 mg Documented by: DRE Morphine Sulfate (Morphine Sulfate 4 Mg/Ml Cartridge) 4 mg IVPUSH Q3H PRN; Protocol PRN Reason: Pain, severe Last Admin: 09/30/21 09:43 Dose: 4 mg Documented by: IVANA Omeprazole (Omeprazole 40 Mg Capsule.Dr) 40 mg PO DAILY [facility] Last Admin: 10/01/21 09:15 Dose: 40 mg Documented by: TONJA Ondansetron HCl (Ondansetron Hcl 4 Mg/2 Ml Vial) 4 mg IVPUSH Q8H PRN PRN Reason: Nausea Last Admin: 09/30/21 02:33 Dose: 4 mg Documented by: CHOLO Oxycodone HCl (Oxycodone Hcl Immed Release 5 Mg Tablet) 5 mg PO Q4H PRN PRN Reason: Pain, Moderate (Pain Scale 4-6 Last Admin: 10/01/21 09:14 Dose: 5 mg Documented by: TONJA Pharmacy Consult (Consult Rx Perform Med Rec) 1 each MISCELLANE ONCE PRN PRN Reason: Consult order Labs CBC & Chem 7: 09/29/21 08:18 09/29/21 08:18 Procedures Date of Service Date of Service: 10/01/21 Progress Note: A&P Assessment and plan (1) Acute diverticulitis: Status: Acute Assessment and Plan: Clinically much improved Plan to repeat CT scan tomorrow IV antibiotic Abdomen soft, benign Patient looks well and comfortable Fall Risk Details Current Medications: Current Medications Acetaminophen (Acetaminophen 325 Mg Tablet) 650 mg PO Q6H PRN PRN Reason: Fever Famotidine (Famotidine 20 Mg Tablet) 40 mg PO BEDTIME [facility] Last Admin: 09/30/21 20:25 Dose: 40 mg Documented by: Hydroxyzine HCl (Hydroxyzine Hcl 10 Mg Tablet) 10 mg PO BEDTIME [facility] Last Admin: 09/30/21 20:25 Dose: 10 mg Documented by: Dextrose/Lactated Ringer's (D5lr) 1,000 mls @ 100 mls/hr IVCONT .Q10H [facility] Last Admin: 10/01/21 05:44 Dose: Not Given Documented by: Piperacillin Sod/Tazobactam (Sod 3.375 gm/ Sodium Chloride) 50 mls @ 100 mls/hr IV Q6H [facility] Last Admin: 10/01/21 09:15 Dose: 100 mls/hr Documented by: Lorazepam (Lorazepam 2 Mg/Ml Vial) 1 mg IVPUSH Q8H PRN PRN Reason: Anxiety Last Admin: 09/30/21 20:32 Dose: 1 mg Documented by: Morphine Sulfate (Morphine Sulfate 4 Mg/Ml Cartridge) 4 mg IVPUSH Q3H PRN; Protocol PRN Reason: Pain, severe Last Admin: 09/30/21 09:43 Dose: 4 mg Documented by: Omeprazole (Omeprazole 40 Mg Capsule.Dr) 40 mg PO DAILY [facility] Last Admin: 10/01/21 09:15 Dose: 40 mg Documented by: Ondansetron HCl (Ondansetron Hcl 4 Mg/2 Ml Vial) 4 mg IVPUSH Q8H PRN PRN Reason: Nausea Last Admin: 09/30/21 02:33 Dose: 4 mg Documented by: Oxycodone HCl (Oxycodone Hcl Immed Release 5 Mg Tablet) 5 mg PO Q4H PRN PRN Reason: Pain, Moderate (Pain Scale 4-6 Last Admin: 10/01/21 09:14 Dose: 5 mg Documented by: Pharmacy Consult (Consult Rx Perform Med Rec) 1 each MISCELLANE ONCE PRN PRN Reason: Consult order Time Spent With Patient Time: Total time spent is greater than 50% in coordination of care (as documented) at patient's floor/unit and/or counseling patient: Time with patient: 15 - 24 minutes Quality Stroke Does the patient have a stroke diagnosis?: No VTE Prior VTE?: No VTE Risk Level:: Medical - low VTE Device Contraindication: N/A - Device Ordered VTE Drug Contraindication: Treatment Not Indicated
--- NOTE | 2021-10-01 12:24 | MHC.CLN ---
NUTRITION DIET=CLEAR LIQUID SINCE 09/29. ADDING ENSURE CLEAR TID TO PROVIDE 720 KCAL, 24 G PROTEIN.
[2021-10-01 15:45] VITALS: BP 137/73; PULSE 67; RESP 17; TEMP 36.5; O2SAT 98
[2021-10-01] MEDS: LORazepam 2 MG/ML VIAL 1 MG IVPUSH (20:27)
[2021-10-01] MEDS: hydrOXYzine HCL 10 MG TABLET PO (20:27)
[2021-10-01] MEDS: Famotidine 20 MG TABLET 40 MG PO (20:27)
[2021-10-01 20:29] VITALS: BP 141/83; PULSE 68; RESP 20
--- NOTE | 2021-10-01 20:38 | PC.NURSE ---
Skin assessment completed. Patient has no skin issues or open areas noted at this time.
[2021-10-01 23:34] VITALS: BP 136/85; PULSE 59; RESP 19; TEMP 36.6; O2SAT 96
[2021-10-02] MEDS: Dextrose 5 % and Lactated Ring 1,000 ML 100 ML IVCONT (00:31)
[2021-10-02] MEDS: Piperacillin Sodium/Tazobactam 3.375 GM in 0.9 % Sodium Chloride 50 ML IV ×4 (02:46→20:54)
[2021-10-02 03:35] VITALS: BP 124/80; PULSE 66; RESP 18; TEMP 37.1; O2SAT 96
[2021-10-02 07:13] VITALS: BP 114/73; PULSE 70; RESP 18; O2SAT 97
[2021-10-02 08:06] VITALS: TEMP 37.2
[2021-10-02] MEDS: Omeprazole 40 MG CAPSULE.DR PO (08:19)
--- NOTE | 2021-10-02 09:36 | P.PNGS_ITS ---
Subjective Subjective Date of Service: 10/02/21 <Nunu Donovan PA-C - Last Filed: 10/02/21 09:38> 10/02/21 <William Cee MD - Last Filed: 10/02/21 15:58> Interval history: Feels much better. Denies any abdominal pain. Moving bowels without difficulty. Tolerating liquids. <Nunu Donovan PA-C - Last Filed: 10/02/21 09:38> Physical Exam Vital Signs: Vital Signs: Last Vital Signs Temp 99.0 F 10/02/21 08:06 Pulse 70 10/02/21 07:13 Resp 18 10/02/21 07:13 BP 114/73 10/02/21 07:13 Pulse Ox 97 10/02/21 07:13 Body Mass Index 39.0 <Nunu Donovan PA-C - Last Filed: 10/02/21 09:38> Const: General: healthy appearing, comfortable and no acute distress <Nunu Donovan PA-C - Last Filed: 10/02/21 09:38> Orientation/consciousness: patient oriented x3 <Nunu Donovan PA-C - Last Filed: 10/02/21 09:38> Resp: Effort & Inspection: normal respiratory effort <Nunu Donovan PA-C - Last Filed: 10/02/21 09:38> GI: Inspection: No distended <Nunu Donovan PA-C - Last Filed: 10/02/21 09:38> Palpation (GI): Soft to palpation, Tenderness to palpation present (GI) in the LLQ (mild to deep palpation), no guarding and not rigid <Nunu Donovan PA-C - Last Filed: 10/02/21 09:38> Percussion: Yes normal to percussion <KIRBY Rice Last Filed: 10/02/21 09:38> Skin: General skin exam: no rashes or lesions noted <KIRBY Rice Last Filed: 10/02/21 09:38> Neuro: General: patient oriented x3 <KIRBY Rice Last Filed: 10/02/21 09:38> Extrem: General: Yes no clubbing, cyanosis or edema <Nunu Donovan PA-C - Last Filed: 10/02/21 09:38> Objective Data Active Medications Acetaminophen (Acetaminophen 325 Mg Tablet) 650 mg PO Q6H PRN PRN Reason: Fever Famotidine (Famotidine 20 Mg Tablet) 40 mg PO BEDTIME [facility] Last Admin: 10/01/21 20:27 Dose: 40 mg Documented by: HEBER Hydroxyzine HCl (Hydroxyzine Hcl 10 Mg Tablet) 10 mg PO BEDTIME [facility] Last Admin: 10/01/21 20:27 Dose: 10 mg Documented by: HEBER Dextrose/Lactated Ringer's (D5lr) 1,000 mls @ 100 mls/hr IVCONT .Q10H [facility] Last Admin: 10/02/21 00:31 Dose: 100 mls/hr Documented by: BERTA Piperacillin Sod/Tazobactam (Sod 3.375 gm/ Sodium Chloride) 50 mls @ 100 mls/hr IV Q6H [facility] Last Infusion: 10/02/21 09:04 Dose: 100 mls/hr Documented by: TONJA Lorazepam (Lorazepam 2 Mg/Ml Vial) 1 mg IVPUSH Q8H PRN PRN Reason: Anxiety Last Admin: 10/01/21 20:27 Dose: 1 mg Documented by: HEBER Morphine Sulfate (Morphine Sulfate 4 Mg/Ml Cartridge) 4 mg IVPUSH Q3H PRN; Protocol PRN Reason: Pain, severe Last Admin: 09/30/21 09:43 Dose: 4 mg Documented by: IVANA Omeprazole (Omeprazole 40 Mg Capsule.Dr) 40 mg PO DAILY [facility] Last Admin: 10/02/21 08:19 Dose: 40 mg Documented by: TONJA Ondansetron HCl (Ondansetron Hcl 4 Mg/2 Ml Vial) 4 mg IVPUSH Q8H PRN PRN Reason: Nausea Last Admin: 09/30/21 02:33 Dose: 4 mg Documented by: CHOLO Oxycodone HCl (Oxycodone Hcl Immed Release 5 Mg Tablet) 5 mg PO Q4H PRN PRN Reason: Pain, Moderate (Pain Scale 4-6 Last Admin: 10/01/21 09:14 Dose: 5 mg Documented by: TONJA Pharmacy Consult (Consult Rx Perform Med Rec) 1 each MISCELLANE ONCE PRN PRN Reason: Consult order <Nunu Donovan PA-C - Last Filed: 10/02/21 09:38> Labs CBC & Chem 7: : 09/29/21 08:18 09/29/21 08:18 <Nunu Donovan PA-C - Last Filed: 10/02/21 09:38> Procedures Date of Service Date of Service: 10/02/21 <Nunu Donovan PA-C - Last Filed: 10/02/21 09:38> Progress Note: A&P Assessment and plan (1) Acute diverticulitis: Status: Acute <Nunu Donovan PA-C - Last Filed: 10/02/21 09:38> Assessment and Plan: 36 year old male with sigmoid diverticulitis, readmitted with worsening left lower quadrant abdominal pain and CT findings concerning for possible a developing abscess.? He is improved and currently asymptomatic. Will repeat CT scan today. If improved, will advance to low residue diet. Cont Zosyn, clear liquid diet for now. <Nunu Donovan PA-C - Last Filed: 10/02/21 09:38> 36 year old male with sigmoid diverticulitis, readmitted with worsening left lower quadrant abdominal pain and CT findings concerning for possible a developing abscess.? He is improved and currently asymptomatic. Will repeat CT scan today. If improved, will advance to low residue diet. Cont Zosyn, clear liquid diet for now. Seen and examined - agree with ROXANA Donovan <William Cee MD - Last Filed: 10/02/21 15:58> Fall Risk Details Current Medications: Current Medications Acetaminophen (Acetaminophen 325 Mg Tablet) 650 mg PO Q6H PRN PRN Reason: Fever Famotidine (Famotidine 20 Mg Tablet) 40 mg PO BEDTIME [facility] Last Admin: 10/01/21 20:27 Dose: 40 mg Documented by: Hydroxyzine HCl (Hydroxyzine Hcl 10 Mg Tablet) 10 mg PO BEDTIME [facility] Last Admin: 10/01/21 20:27 Dose: 10 mg Documented by: Dextrose/Lactated Ringer's (D5lr) 1,000 mls @ 100 mls/hr IVCONT .Q10H [facility] Last Admin: 10/02/21 00:31 Dose: 100 mls/hr Documented by: Piperacillin Sod/Tazobactam (Sod 3.375 gm/ Sodium Chloride) 50 mls @ 100 mls/hr IV Q6H [facility] Last Infusion: 10/02/21 09:04 Dose: Infused Documented by: Lorazepam (Lorazepam 2 Mg/Ml Vial) 1 mg IVPUSH Q8H PRN PRN Reason: Anxiety Last Admin: 10/01/21 20:27 Dose: 1 mg Documented by: Morphine Sulfate (Morphine Sulfate 4 Mg/Ml Cartridge) 4 mg IVPUSH Q3H PRN; Protocol PRN Reason: Pain, severe Last Admin: 09/30/21 09:43 Dose: 4 mg Documented by: Omeprazole (Omeprazole 40 Mg Capsule.Dr) 40 mg PO DAILY [facility] Last Admin: 10/02/21 08:19 Dose: 40 mg Documented by: Ondansetron HCl (Ondansetron Hcl 4 Mg/2 Ml Vial) 4 mg IVPUSH Q8H PRN PRN Reason: Nausea Last Admin: 09/30/21 02:33 Dose: 4 mg Documented by: Oxycodone HCl (Oxycodone Hcl Immed Release 5 Mg Tablet) 5 mg PO Q4H PRN PRN Reason: Pain, Moderate (Pain Scale 4-6 Last Admin: 10/01/21 09:14 Dose: 5 mg Documented by: Pharmacy Consult (Consult Rx Perform Med Rec) 1 each MISCELLANE ONCE PRN PRN Reason: Consult order <Nunu Donovan PA-C - Last Filed: 10/02/21 09:38> Time Spent With Patient Time: Total time spent is greater than 50% in coordination of care (as documented) at patient's floor/unit and/or counseling patient: <Nunu Donovan PA-C - Last Filed: 10/02/21 09:38> Time with patient: 15 - 24 minutes <Nunu Donovan PA-C - Last Filed: 10/02/21 09:38> Quality Stroke Does the patient have a stroke diagnosis?: No <Nunu Donovan PA-C - Last Filed: 10/02/21 09:38> VTE Prior VTE?: No <Nunu Donovan PA-C - Last Filed: 10/02/21 09:38> VTE Risk Level:: Medical - low <Nunu Donovan PA-C - Last Filed: 10/02/21 09:38> VTE Device Contraindication: N/A - Device Ordered <Nunu Donovan PA-C - Last Filed: 10/02/21 09:38> VTE Drug Contraindication: Treatment Not Indicated <Nunu Donovan PA-C - Last Filed: 10/02/21 09:38>
[2021-10-02] MEDS: iohexoL 350 MG/ML 100 ML INFUS..BTL 85 ML IV (09:42)
[2021-10-02 15:10] VITALS: BP 135/86; PULSE 75; RESP 18; TEMP 36.9; O2SAT 97
--- NOTE | 2021-10-02 15:59 | PM.EVENT ---
Event Note Date of Service: 10/02/21 Event Note: Follow-up CT scan reviewed Small fluid collection without here along the sigmoid No air seen He has no pain or tenderness at this time Hungry and wants to eat I told him that we will keep him on clear liquids today Continue IV antibiotics
[2021-10-02] MEDS: Famotidine 20 MG TABLET 40 MG PO (20:55)
[2021-10-02] MEDS: hydrOXYzine HCL 10 MG TABLET PO (20:55)
[2021-10-02] MEDS: LORazepam 2 MG/ML VIAL 1 MG IVPUSH (21:04)
[2021-10-02 23:51] VITALS: BP 126/87; PULSE 79; RESP 18; TEMP 36.5; O2SAT 97
[2021-10-03] MEDS: Piperacillin Sodium/Tazobactam 3.375 GM in 0.9 % Sodium Chloride 50 ML IV ×4 (03:09→22:52)
[2021-10-03 08:00] VITALS: BP 131/78; PULSE 67; RESP 17; TEMP 36; O2SAT 96
[2021-10-03] MEDS: Omeprazole 40 MG CAPSULE.DR PO (08:19)
--- NOTE | 2021-10-03 08:31 | P.PNGS_ITS ---
Subjective Subjective Date of Service: 10/03/21 Interval history: Denies any abdominal pain Hungry and wants to eat Passing flatus Says he feels well Physical Exam Vital Signs: Vital Signs: Last Vital Signs Temp 96.8 F 10/03/21 08:00 Pulse 67 10/03/21 08:00 Resp 17 10/03/21 08:00 BP 131/78 10/03/21 08:00 Pulse Ox 96 10/03/21 08:00 Body Mass Index 39.0 Const: General: comfortable and no acute distress Resp: Effort & Inspection: normal respiratory effort Cardio: Rate: regular rate GI: Palpation (GI): Soft to palpation, not firm, nontender and no guarding Objective Data Active Medications Acetaminophen (Acetaminophen 325 Mg Tablet) 650 mg PO Q6H PRN PRN Reason: Fever Famotidine (Famotidine 20 Mg Tablet) 40 mg PO BEDTIME [facility] Last Admin: 10/02/21 20:55 Dose: 40 mg Documented by: HEBER Hydroxyzine HCl (Hydroxyzine Hcl 10 Mg Tablet) 10 mg PO BEDTIME [facility] Last Admin: 10/02/21 20:55 Dose: 10 mg Documented by: HEBER Piperacillin Sod/Tazobactam (Sod 3.375 gm/ Sodium Chloride) 50 mls @ 100 mls/hr IV Q6H [facility] Last Admin: 10/03/21 08:19 Dose: 100 mls/hr Documented by: LILLIAN Lorazepam (Lorazepam 2 Mg/Ml Vial) 1 mg IVPUSH Q8H PRN PRN Reason: Anxiety Last Admin: 10/02/21 21:04 Dose: 1 mg Documented by: HEBER Morphine Sulfate (Morphine Sulfate 4 Mg/Ml Cartridge) 4 mg IVPUSH Q3H PRN; Protocol PRN Reason: Pain, severe Last Admin: 09/30/21 09:43 Dose: 4 mg Documented by: IVANA Omeprazole (Omeprazole 40 Mg Capsule.Dr) 40 mg PO DAILY [facility] Last Admin: 10/03/21 08:19 Dose: 40 mg Documented by: LILLIAN Ondansetron HCl (Ondansetron Hcl 4 Mg/2 Ml Vial) 4 mg IVPUSH Q8H PRN PRN Reason: Nausea Last Admin: 09/30/21 02:33 Dose: 4 mg Documented by: CHOLO Oxycodone HCl (Oxycodone Hcl Immed Release 5 Mg Tablet) 5 mg PO Q4H PRN PRN Reason: Pain, Moderate (Pain Scale 4-6 Last Admin: 10/01/21 09:14 Dose: 5 mg Documented by: TONJA Pharmacy Consult (Consult Rx Perform Med Rec) 1 each MISCELLANE ONCE PRN PRN Reason: Consult order Labs CBC & Chem 7: 09/29/21 08:18 09/29/21 08:18 Procedures Date of Service Date of Service: 10/03/21 Progress Note: A&P Assessment and plan (1) Acute diverticulitis: Status: Acute Assessment and Plan: Continues do well Clinically asymptomatic Will advance diet Since this is a readmission, will keep the patient on IV antibiotics for at least 1 more day He understands plan Fall Risk Details Current Medications: Current Medications Acetaminophen (Acetaminophen 325 Mg Tablet) 650 mg PO Q6H PRN PRN Reason: Fever Famotidine (Famotidine 20 Mg Tablet) 40 mg PO BEDTIME [facility] Last Admin: 10/02/21 20:55 Dose: 40 mg Documented by: Hydroxyzine HCl (Hydroxyzine Hcl 10 Mg Tablet) 10 mg PO BEDTIME [facility] Last Admin: 10/02/21 20:55 Dose: 10 mg Documented by: Piperacillin Sod/Tazobactam (Sod 3.375 gm/ Sodium Chloride) 50 mls @ 100 mls/hr IV Q6H [facility] Last Admin: 10/03/21 08:19 Dose: 100 mls/hr Documented by: Lorazepam (Lorazepam 2 Mg/Ml Vial) 1 mg IVPUSH Q8H PRN PRN Reason: Anxiety Last Admin: 10/02/21 21:04 Dose: 1 mg Documented by: Morphine Sulfate (Morphine Sulfate 4 Mg/Ml Cartridge) 4 mg IVPUSH Q3H PRN; Protocol PRN Reason: Pain, severe Last Admin: 09/30/21 09:43 Dose: 4 mg Documented by: Omeprazole (Omeprazole 40 Mg Capsule.Dr) 40 mg PO DAILY [facility] Last Admin: 10/03/21 08:19 Dose: 40 mg Documented by: Ondansetron HCl (Ondansetron Hcl 4 Mg/2 Ml Vial) 4 mg IVPUSH Q8H PRN PRN Reason: Nausea Last Admin: 09/30/21 02:33 Dose: 4 mg Documented by: Oxycodone HCl (Oxycodone Hcl Immed Release 5 Mg Tablet) 5 mg PO Q4H PRN PRN Reason: Pain, Moderate (Pain Scale 4-6 Last Admin: 10/01/21 09:14 Dose: 5 mg Documented by: Pharmacy Consult (Consult Rx Perform Med Rec) 1 each MISCELLANE ONCE PRN PRN Reason: Consult order Time Spent With Patient Time: Total time spent is greater than 50% in coordination of care (as documented) at patient's floor/unit and/or counseling patient: Time with patient: 15 - 24 minutes Quality Stroke Does the patient have a stroke diagnosis?: No VTE Prior VTE?: No VTE Risk Level:: Medical - low VTE Device Contraindication: N/A - Device Ordered VTE Drug Contraindication: Treatment Not Indicated
--- NOTE | 2021-10-03 15:33 | P.DS_ITS ---
DS: Providers Provider Date of Service: 10/04/21 Date of admission: 09/29/21 12:00 Primary care physician: Suma Rueda MD Attending physician on admission: Brooklyn Salas Attending physician on discharge: William Cee DS: Diagnosis Discharge Diagnosis (1) Acute diverticulitis: Status: Acute DS: Summary Hospital Course Hospital Course: BRIEF HPI: Pedro Luis Calero is a 36 year old male who was discharged from [facility] on 09/26/21 after a 3 day admission for treatment of acute sigmoid diverticulitis.? He has a past history of uncomplicated sigmoid diverticulitis and has experienced multiple episodes in the past.? He reports that he had some increase in left lower quadrant pain on the day of discharge, but says that he thought that it was normal in was related to eating at that time, so he did not mention it.? Following discharge, the pain worsened somewhat.? He called the surgery office yesterday and reports that was advised to go to the emergency department.? He elected to continue observation at home, but this morning, because of the persistent moderate left lower quadrant pain, he elected to come in.? He does not report fever at home.? He does not have nausea or vomiting.? He had a loose bowel movement yesterday, no rectal bleeding. A repeat CT of the abdomen and pelvis was obtained in the emergency department and demonstrated: IMPRESSION: Worsening sigmoid diverticulitis. New small fluid and air collection superior to the proximal sigmoid colon tracking superiorly toward the small bowel. Differential would include a developing small abscess and HOSPITAL COURSE: ?The patient was admitted for antibiotic therapy and further treatment as needed for the diverticulitis with small air and fluid containing collection raising concern for developing abscess/contained perforation.?He was started on Zosyn, IVF and clear liquids. He began to improve symptomatically and had complete resolution of his abdominal pain and tenderness. A repeat CT scan showed no worsening of the diverticulitis or fluid collection. His diet was advanced to low residue the following day which he was tolerating without any recurrence in abdominal pain. He was moving his bowels without difficulty. He remained inpatient for an extended course of IV antibiotics given the readmission and completed a 6 day course of IV zosyn. He was discharged to home on 10/04/21 in stable condition. He was discharged to home on a course of PO Augmentin. He is to follow up with Dr. Cee in office in 1 week. Status at Discharge Functional status at discharge: independent ambulation Overall status at discharge: patient is back to baseline Time Spent with Patient Time attestation: Total time spent providing and/or coordinating discharge services: Discharge coordination time: Greater than 30 minutes Quality: Stroke Does the patient have a stroke diagnosis?: No Physical Exam Vital Signs: Vital Signs: Last Vital Signs Temp 96.8 F 10/03/21 08:00 Pulse 67 10/03/21 08:00 Resp 17 10/03/21 08:00 BP 131/78 10/03/21 08:00 Pulse Ox 96 10/03/21 08:00 Body Mass Index 39.0 Const: General: comfortable, no acute distress and alert Orientation/consciousness: patient oriented x3 GI: Inspection: No distended Palpation (GI): Soft to palpation and nontender Skin: General skin exam: no rashes or lesions noted Neuro: General: patient oriented x3 Discharge Plan Discharge Patient Disposition: Home, Self-Care Discharge Diagnosis: sigmoid diverticulitis Referrals: Suma Rueda MD [Primary Care Provider] - 1 Week William Cee MD [Physician] - 1 Week Discharge Medications: New amoxicillin-pot clavulanate [Augmentin] 500-125 mg tablet 1 tab PO BID Qty: 20 RF: 0 lorazepam [Ativan] 0.5 mg tablet 0.5 mg PO DAILY PRN (Reason: anxiety) Qty: 10 RF: 0 Continued hydroxyzine HCl 10 mg tablet 1 tab PO BEDTIME RF: 0 famotidine [Pepcid] 40 mg tablet 40 mg PO BEDTIME Qty: 30 RF: 2 omeprazole 40 mg capsule,delayed release(DR/EC) 40 mg PO DAILY Qty: 30 RF: 2 Discontinued amoxicillin-pot clavulanate [Augmentin] 875-125 mg tablet 1 tab PO Q12H Qty: 14 RF: 0 Discharge Orders: Discharge Order (Routine); Ordered 10/04/21 Ordered By: William Cee Diet: other Activity on Discharge: As tolerated Stand Alone Forms: Patient Portal Discharge page Activity Restrictions/Additional Instructions: Call Your Doctor If: ? ? -Your temperature exceeds 101.5? F? ? ? -You experience excessive pain or swelling ? ? -You have an unexpected reaction to medication ? ? -You experience continued vomiting/nausea Continue low residue diet until seen by Dr. Cee. Care Plan Goals: Gradual return of activity. Health Concerns: Sigmoid diverticulitis with small abscess Plan of Treatment: PO antibiotic course, f/u in office with Dr. Cee for discussion of elective resection. Assessment: Improved. Discharge Date/Time: 10/04/21 16:00
[2021-10-03 15:39] VITALS: BP 148/87; PULSE 75; RESP 18; TEMP 37; O2SAT 99
[2021-10-03] MEDS: Famotidine 20 MG TABLET 40 MG PO (22:52)
[2021-10-03] MEDS: hydrOXYzine HCL 10 MG TABLET PO (22:53)
[2021-10-03] MEDS: LORazepam 2 MG/ML VIAL 1 MG IVPUSH (23:09)
[2021-10-04] VITALS: BP 134/79; PULSE 69; RESP 18; TEMP 36.6; O2SAT 95
[2021-10-04] MEDS: Piperacillin Sodium/Tazobactam 3.375 GM in 0.9 % Sodium Chloride 50 ML IV ×3 (03:55→15:15)
[2021-10-04 04:03] VITALS: BP 120/72; PULSE 73; RESP 18; TEMP 36.6; O2SAT 96
[2021-10-04 07:21] VITALS: BP 118/73; PULSE 73; RESP 17; TEMP 36.2; O2SAT 96
[2021-10-04] MEDS: Omeprazole 40 MG CAPSULE.DR PO (08:45)
--- NOTE | 2021-10-04 11:48 | P.PNGS_ITS ---
Subjective Subjective Date of Service: 10/04/21 Interval history: Feels well No abdominal pain Hungry and wants to eat Says he is ready to be discharged Physical Exam Vital Signs: Vital Signs: Last Vital Signs Temp 97.2 F 10/04/21 07:21 Pulse 73 10/04/21 07:21 Resp 17 10/04/21 07:21 BP 118/73 10/04/21 07:21 Pulse Ox 96 10/04/21 07:21 Body Mass Index 39.0 Const: General: comfortable and no acute distress Resp: Effort & Inspection: normal respiratory effort Cardio: Rate: regular rate GI: Palpation (GI): Soft to palpation, not firm, nontender and no guarding Objective Data Active Medications Acetaminophen (Acetaminophen 325 Mg Tablet) 650 mg PO Q6H PRN PRN Reason: Fever Famotidine (Famotidine 20 Mg Tablet) 40 mg PO BEDTIME [facility] Last Admin: 10/03/21 22:52 Dose: 40 mg Documented by: HAILEE Hydroxyzine HCl (Hydroxyzine Hcl 10 Mg Tablet) 10 mg PO BEDTIME [facility] Last Admin: 10/03/21 22:53 Dose: 10 mg Documented by: HAILEE Piperacillin Sod/Tazobactam (Sod 3.375 gm/ Sodium Chloride) 50 mls @ 100 mls/hr IV Q6H [facility] Last Infusion: 10/04/21 09:18 Dose: 0 mls/hr Documented by: PRASAD Lorazepam (Lorazepam 2 Mg/Ml Vial) 1 mg IVPUSH Q8H PRN PRN Reason: Anxiety Last Admin: 10/03/21 23:09 Dose: 1 mg Documented by: HAILEE Morphine Sulfate (Morphine Sulfate 4 Mg/Ml Cartridge) 4 mg IVPUSH Q3H PRN; Protocol PRN Reason: Pain, severe Last Admin: 09/30/21 09:43 Dose: 4 mg Documented by: IVANA Omeprazole (Omeprazole 40 Mg Capsule.) 40 mg PO DAILY [facility] Last Admin: 10/04/21 08:45 Dose: 40 mg Documented by: PRASAD Ondansetron HCl (Ondansetron Hcl 4 Mg/2 Ml Vial) 4 mg IVPUSH Q8H PRN PRN Reason: Nausea Last Admin: 09/30/21 02:33 Dose: 4 mg Documented by: CHOLO Oxycodone HCl (Oxycodone Hcl Immed Release 5 Mg Tablet) 5 mg PO Q4H PRN PRN Reason: Pain, Moderate (Pain Scale 4-6 Last Admin: 10/01/21 09:14 Dose: 5 mg Documented by: TONJA Pharmacy Consult (Consult Rx Perform Med Rec) 1 each MISCELLANE ONCE PRN PRN Reason: Consult order Labs CBC & Chem 7: 09/29/21 08:18 09/29/21 08:18 Procedures Date of Service Date of Service: 10/04/21 Progress Note: A&P Assessment and plan (1) Acute diverticulitis: Status: Acute Assessment and Plan: Clinically resolved Advance diet Looks well Likely DC home today Continue oral antibiotics on discharge Fall Risk Details Current Medications: Current Medications Acetaminophen (Acetaminophen 325 Mg Tablet) 650 mg PO Q6H PRN PRN Reason: Fever Famotidine (Famotidine 20 Mg Tablet) 40 mg PO BEDTIME [facility] Last Admin: 10/03/21 22:52 Dose: 40 mg Documented by: Hydroxyzine HCl (Hydroxyzine Hcl 10 Mg Tablet) 10 mg PO BEDTIME [facility] Last Admin: 10/03/21 22:53 Dose: 10 mg Documented by: Piperacillin Sod/Tazobactam (Sod 3.375 gm/ Sodium Chloride) 50 mls @ 100 mls/hr IV Q6H [facility] Last Infusion: 10/04/21 09:18 Dose: Infused Documented by: Lorazepam (Lorazepam 2 Mg/Ml Vial) 1 mg IVPUSH Q8H PRN PRN Reason: Anxiety Last Admin: 10/03/21 23:09 Dose: 1 mg Documented by: Morphine Sulfate (Morphine Sulfate 4 Mg/Ml Cartridge) 4 mg IVPUSH Q3H PRN; Protocol PRN Reason: Pain, severe Last Admin: 09/30/21 09:43 Dose: 4 mg Documented by: Omeprazole (Omeprazole 40 Mg Capsule.Dr) 40 mg PO DAILY [facility] Last Admin: 10/04/21 08:45 Dose: 40 mg Documented by: Ondansetron HCl (Ondansetron Hcl 4 Mg/2 Ml Vial) 4 mg IVPUSH Q8H PRN PRN Reason: Nausea Last Admin: 09/30/21 02:33 Dose: 4 mg Documented by: Oxycodone HCl (Oxycodone Hcl Immed Release 5 Mg Tablet) 5 mg PO Q4H PRN PRN Reason: Pain, Moderate (Pain Scale 4-6 Last Admin: 10/01/21 09:14 Dose: 5 mg Documented by: Pharmacy Consult (Consult Rx Perform Med Rec) 1 each MISCELLANE ONCE PRN PRN Reason: Consult order Time Spent With Patient Time: Total time spent is greater than 50% in coordination of care (as documented) at patient's floor/unit and/or counseling patient: Time with patient: 15 - 24 minutes Quality Stroke Does the patient have a stroke diagnosis?: No VTE Prior VTE?: No VTE Risk Level:: Medical - low VTE Device Contraindication: N/A - Device Ordered VTE Drug Contraindication: Treatment Not Indicated
[2021-10-04 15:28] VITALS: BP 131/78; PULSE 78; RESP 18; TEMP 36.8; O2SAT 96
--- NOTE | 2021-10-04 15:48 | MHC.CM.PN ---
PATIENT IS DISCHARGED HOME - SELF CARE. FAMILY TO TRANSPORT. RN AWARE OF PLAN
== END 2021-10-04 16:00 | disposition home or self-care (01) | DRG 244 ==
LOC: HO.ED 12:11 → HO.EDOVER 12:11 → HO.S3 14:29
PROVIDERS: Admitting Provider Surgery; Emergency Provider Emergency Medicine Emergency Medical Services; PCP Internal Medicine; Visit Provider Surgery
DX: K57.20 Diverticulitis of large intestine with perforation and abscess without bleeding (principal); F41.9 Anxiety disorder, unspecified; K21.9 Gastro-esophageal reflux disease without esophagitis; Z20.822 Contact with and (suspected) exposure to COVID-19; Z79.899 Other long term (current) drug therapy
CPT/HCPCS: 36415; 74177; 80048; 80053; 80076; 81003; 83605; 83690; 85025; 85027; 87040; 87635; 90686; 93005; 96361; 96365; 96375; 96376; 99285; J0696; J1170; J1650; J1956; J2060; J2270; J2405; J2543; Q9967

== ENCOUNTER 2021-10-14 02:17 | Emergency (ER) | payer BC, SELFPAY ==
--- NOTE | 2021-10-14 | ECG_ITS ---
Test Reason : CP Blood Pressure : / mmHG Vent. Rate : 108 BPM Atrial Rate : 108 BPM P-R Int : 112 ms QRS Dur : 098 ms QT Int : 342 ms P-R-T Axes : 000 -42 064 degrees QTc Int : 458 ms Sinus tachycardia Left axis deviation Incomplete right bundle branch block Abnormal ECG When compared with ECG of 24-SEP-2021 01:06, No significant changes seen Referred By: Dari Rabago Electronically Signed By:DARCY VALERIO MD
--- NOTE | ~2021-10-14 | XR_ITS ---
EXAMINATION: XR CHEST CLINICAL INFORMATION: Chest pain COMPARISON: 06/05/2017 TECHNIQUE: Frontal view of the chest was obtained. FINDINGS: The lungs are clear with no focal consolidation. No evidence of pneumothorax, pulmonary edema, or pleural effusions. The cardiomediastinal silhouette is unremarkable. No acute osseous findings. XR/XR chest 1V IMPRESSION: No acute cardiopulmonary findings.
[2021-10-14 02:52] VITALS: BP 135/85; PULSE 94; RESP 19; TEMP 37.1; O2SAT 98; BMI 38.7
--- NOTE | 2021-10-14 02:58 | ED_ITS ---
HPI - Chest Pain General Chief Complaint: Chest Pain Stated Complaint: Chest pain/Palpitations Time Seen by Provider: 10/14/21 02:22 Source: patient Mode of arrival: ambulatory History of Present Illness HPI narrative: 36-year-old male with history of anxiety and GERD presents with complaints epigastric/chest pain that started approximately 730 last night patient states that this was not associated with dizziness, nausea, shortness of breath and says that pain intermittently radiated into his left jaw. He denies that the pain was associated with exertion but states that it is far worse than his typical GERD symptoms. He states that he took 1 of his medications for anxiety, but he continued to have symptoms. Related Data Home Medications Medication Instructions Recorded Confirmed hydroxyzine HCl 10 mg tablet 1 tab PO BEDTIME 09/29/21 10/09/21 Previous Rx's Medication Instructions Recorded famotidine 40 mg tablet (Pepcid) 40 mg PO BEDTIME #30 tab 07/20/21 omeprazole 40 mg capsule,delayed 40 mg PO DAILY #30 cap 07/20/21 release amoxicillin 500 mg-potassium 1 tab PO BID #20 tab 10/03/21 clavulanate 125 mg tablet (Augmentin) lorazepam 0.5 mg tablet (Ativan) 0.5 mg PO DAILY PRN #10 tab 10/04/21 Allergies Allergy/AdvReac Type Severity Reaction Status Date / Time No Known Allergies Allergy Verified 10/09/21 09:42 [No Known Allergies*] Review of Systems Review of Systems: Pertinent positives and negatives as stated in HPI 10 point review of systems is otherwise negative. [facility] Past Medical History Source: nursing notes reviewed Medical History Anxiety GERD (gastroesophageal reflux disease) IBS (irritable bowel syndrome) Sleep apnea Surgical History History of medial meniscus repair of left knee History of tonsillectomy and adenoidectomy Family History Family History Father History of heart disease Mother History of lung cancer Hx of breast cancer History of skin cancer Social History Social History Household Members: Family Household Members Other:: 2 kids Housing: House Are you a primary respiratory care practitioner to a significant other at home: No Do you presently have visiting nurse or other home services: No Alcohol intake: never Patient Tobacco Use Status: Never used Tobacco Use of substances other than those prescribed or required for medical reasons: No Advance Directives: No service: Yes Current occupational status: employed 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 GENERAL: Well developed, well nourished, in no acute distress. HEAD: Normocephalic/atraumatic EYES: PERRLA, EOMI OROPHARYNX: no oral lesions noted, posterior pharynx clear NECK: Supple, no adenopathy LUNGS: Normal breath sounds. No adventitious sounds or accessory muscle use. SpO2<98>, there is no chest wall tenderness on palpation CARDIOVASCULAR: Regular rate and rhythm without noted murmurs, no JVD or lower extremity edema. ABDOMEN: Soft, non-tender, non-distended with bowel sounds. NEUROLOGIC: Alert and oriented x 4. Course Course Course Narrative: This is a 36-year-old male with history and clinical presentation suggestive of anxiety, GERD, but will rule out cardiopulmonary etiology. Low clinical suspicion for PE. Review of all investigations otherwise negative for acute findings. Patient provided with a GI cocktail and on re-evaluation states that his symptoms have resolved. MDM - Chest Pain Lab Data Result diagrams: 10/14/21 03:03 10/14/21 03:03 Labs: Lab Results 10/14/21 10/14/21 10/14/21 Range/Units 03:03 03:03 03:03 WBC 13.0 H (4.8-10.8) X10*3/uL RBC 4.47 L (4.60-5.80) X10*6/uL Hgb 12.8 L (14.0-18.0) g/dl Hct 38.5 L (42.0-52.0) % MCV 86.1 (80.0-98.0) fL MCH 28.6 (27.0-33.0) pg MCHC 33.2 (31.0-36.0) g/dl RDW 12.7 (11.0-16.0) % Plt Count 361 (160-400) X10*3/uL MPV 9.0 L (9.4-12.4) fL Immature Gran % (Auto) 0.4 (0.0-0.4) % Neut % (Auto) 72.3 (45-73) % Lymph % (Auto) 19.0 L (20-40) % [place] % (Auto) 6.7 (2-11) % Eos % (Auto) 0.9 (0-4) % Baso % (Auto) 0.7 (0-2) % Lymph # (Auto) 2.5 (1.2-4.9) X10*3/uL [place] # (Auto) 0.9 (0.1-1.2) X10*3/uL Eos # (Auto) 0.1 (0.0-0.4) X10*3/uL Baso # (Auto) 0.1 (0.0-0.2) X10*3/uL Abs Immat Gran (auto) 0.05 H (0.00-0.03) X10*3/uL Absolute Neuts (auto) 9.4 H (2.0-8.3) x10*3/uL Absolute Nucleated RBC 0.000 (0.0-0.012) X10*3/uL Nucleated RBC % (auto) 0.0 (0.0-0.2) /100WBC PT (9.9-13.0) SEC INR (0.9-1.1) D-Dimer High Sensitivty NG/ML Sodium 141 (135-145) mmol/L Potassium 3.8 (3.3-5.1) mmol/L Chloride 107 (96-108) mmol/L Carbon Dioxide 25 (22-29) mmol/L Anion Gap 13 (12-20) BUN 10 (9-16) mg/dL Creatinine 0.97 (0.5-1.4) mg/dL Estim Creat Clear Calc 119.5 Estimated GFR > 60 Random Glucose 124 H (60-115) mg/dL Calcium 9.8 (8.4-10.2) mg/dL Total Bilirubin 0.5 (0.0-1.0) mg/dL AST 22 (5-37) U/L ALT 54 H (0-40) U/L Alkaline Phosphatase 60 D (39-117) U/L Troponin I High Sens < 3.5 (<3.5-35.0) ng/L Total Protein 7.3 (6.5-8.0) g/dL Albumin 4.3 (3.5-5.0) g/dL 10/14/21 Range/Units 03:03 WBC (4.8-10.8) X10*3/uL RBC (4.60-5.80) X10*6/uL Hgb (14.0-18.0) g/dl Hct (42.0-52.0) % MCV (80.0-98.0) fL MCH (27.0-33.0) pg MCHC (31.0-36.0) g/dl RDW (11.0-16.0) % Plt Count (160-400) X10*3/uL MPV (9.4-12.4) fL Immature Gran % (Auto) (0.0-0.4) % Neut % (Auto) (45-73) % Lymph % (Auto) (20-40) % [place] % (Auto) (2-11) % Eos % (Auto) (0-4) % Baso % (Auto) (0-2) % Lymph # (Auto) (1.2-4.9) X10*3/uL [place] # (Auto) (0.1-1.2) X10*3/uL Eos # (Auto) (0.0-0.4) X10*3/uL Baso # (Auto) (0.0-0.2) X10*3/uL Abs Immat Gran (auto) (0.00-0.03) X10*3/uL Absolute Neuts (auto) (2.0-8.3) x10*3/uL Absolute Nucleated RBC (0.0-0.012) X10*3/uL Nucleated RBC % (auto) (0.0-0.2) /100WBC PT 12.3 (9.9-13.0) SEC INR 1.1 (0.9-1.1) D-Dimer High Sensitivty 250 NG/ML Sodium (135-145) mmol/L Potassium (3.3-5.1) mmol/L Chloride (96-108) mmol/L Carbon Dioxide (22-29) mmol/L Anion Gap (12-20) BUN (9-16) mg/dL Creatinine (0.5-1.4) mg/dL Estim Creat Clear Calc Estimated GFR Random Glucose (60-115) mg/dL Calcium (8.4-10.2) mg/dL Total Bilirubin (0.0-1.0) mg/dL AST (5-37) U/L ALT (0-40) U/L Alkaline Phosphatase (39-117) U/L Troponin I High Sens (<3.5-35.0) ng/L Total Protein (6.5-8.0) g/dL Albumin (3.5-5.0) g/dL ECG Data ECG #1: Prior ECG tracings: available for review (09/24/2021) Interpretation: Sinus tachycardia, HR-108, incomplete right bundle branch block, no STEMI, [place]/QRS/QTC are within normal limits. Discharge Plan Discharge Clinical Impression: Atypical chest pain, Anxiety, GERD (gastroesophageal reflux disease) Patient Disposition: Home, Self-Care Instructions: Gastroesophageal Reflux Disease (ED), Anxiety (ED) Additional Instructions: 1. Resume all home medications as prescribed. 2. Follow-up with your primary care provider on Friday morning. Return to the ER for acute worsening of symptoms. Prescriptions: No Action hydroxyzine HCl 10 mg tablet 1 tab PO BEDTIME RF: 0 amoxicillin-pot clavulanate [Augmentin] 500-125 mg tablet 1 tab PO BID Qty: 20 RF: 0 lorazepam [Ativan] 0.5 mg tablet 0.5 mg PO DAILY PRN (Reason: anxiety) Qty: 10 RF: 0 famotidine [Pepcid] 40 mg tablet 40 mg PO BEDTIME Qty: 30 RF: 2 omeprazole 40 mg capsule,delayed release(DR/EC) 40 mg PO DAILY Qty: 30 RF: 2 Referrals: Suma Rueda MD [Primary Care Provider] - 2 days
[2021-10-14 03:07] LABS: Basophils Absolute Auto 0.1 X10*3/uL (0.0-0.2); Basophils Percent Auto 0.7 % (0-2); Eosinophils Absolute Auto 0.1 X10*3/uL (0.0-0.4); Eosinophils Percent Auto 0.9 % (0-4); Hematocrit 38.5 % (42.0-52.0); Hemoglobin 12.8 g/dl (14.0-18.0); Imm Gran Abs Auto 0.05 X10*3/uL (0.00-0.03); Imm Gran Pct Auto 0.4 % (0.0-0.4); Lymphocytes Absolute Auto 2.5 X10*3/uL (1.2-4.9); MANUAL DIFF FLAG NO; Mean Corpuscular HGB Conc 33.2 g/dl (31.0-36.0); Mean Corpuscular Hemoglobin 28.6 pg (27.0-33.0); Mean Corpuscular Volume 86.1 fL (80.0-98.0); Monocytes Absolute Auto 0.9 X10*3/uL (0.1-1.2); Monocytes Percent Auto 6.7 % (2-11); Neutrophils Absolute Auto 9.4 x10*3/uL (2.0-8.3); Neutrophils Percent Auto 72.3 % (45-73); Platelet Count 361 X10*3/uL (160-400); Red Blood Count 4.47 X10*6/uL (4.60-5.80); Red Cell Distribution Width 12.7 % (11.0-16.0)
[2021-10-14 03:18] LABS: INTERNATIONAL NORM RATIO 1.1 (0.9-1.1); Prothrombin Time 12.3 SEC (9.9-13.0)
--- NOTE | 2021-10-14 03:22 | PC.NURSE ---
pt A&O, NO SOB . PT REPORT MID STERNUM CHEST PAIN WITH NAUSEA AND VOMITING THIS EVENING. PT CHANGED INTO HOSPITAL ATTIRE, IV PLACED AND LABS DRAWN. PT PLEASE ON BED SIDE TURNSTILE ATTENDANT.
[2021-10-14 03:25] LABS: Alanine Aminotransferase 54 U/L (0-40); Albumin Level 4.3 g/dL (3.5-5.0); Alkaline Phosphatase 60 U/L (39-117); Anion Gap 13 (12-20); Aspartate Amino Transferase 22 U/L (5-37); Bilirubin Total 0.5 mg/dL (0.0-1.0); Blood Urea Nitrogen 10 mg/dL (9-16); Calcium 9.8 mg/dL (8.4-10.2); Carbon Dioxide 25 mmol/L (22-29); Chloride 107 mmol/L (96-108); Creatinine Clr Calc Pharmacy 119.5; Estimated Glomerular Filt Rate > 60; Glucose Random 124 mg/dL (60-115); Potassium 3.8 mmol/L (3.3-5.1); Sodium 141 mmol/L (135-145); Total Protein 7.3 g/dL (6.5-8.0)
[2021-10-14 03:28] LABS: Troponin-I High Sensitivity < 3.5 ng/L (<3.5-35.0)
[2021-10-14 03:40] LABS: D Dimer High Sensitivity 250 NG/ML
[2021-10-14] MEDS: Lidocaine HCl Viscous 2 % 15 ML SOLUTION 10 ML MUCOUS MEM (04:58)
[2021-10-14] MEDS: Magnesium Hydrox/Alum Hydrox 30 ML ORAL.SUSP PO (04:58)
[2021-10-14 05:07] VITALS: BP 119/62; PULSE 72; O2SAT 98
--- NOTE | 2021-10-14 05:09 | PC.NURSE ---
MEDICATED PT PER JAN. REVIEWED DISCHARGE INSTRUCTIONS WITH PT AND CARE PLAN
== END 2021-10-14 05:11 | disposition home or self-care (01) ==
PROVIDERS: Emergency Provider Student in an Organized Health Care Education/Training Program; PCP Internal Medicine
DX: R07.89 Other chest pain (principal); F41.9 Anxiety disorder, unspecified; K21.9 Gastro-esophageal reflux disease without esophagitis; R10.13 Epigastric pain; Z79.899 Other long term (current) drug therapy
CPT/HCPCS: 36415; 71045; 80053; 84484; 85025; 85379; 85610; 93005; 99284; 99285

== ENCOUNTER → 2021-10-24 13:02 | Outpatient (BNVA) | payer BC, SELFPAY | PROVIDERS: PCP Internal Medicine; Referring Provider Internal Medicine; Visit Provider Surgery ==

== ENCOUNTER 2021-11-05 08:46 | Day surgery (SDC) | payer BC, SELFPAY ==
[2021-06-07 14:18] VITALS: BMI 40.3
--- NOTE | 2021-11-05 08:53 | HO.ANESPROP2 ---
[facility] Active Problems Active Problems: All Active Problems (Updated 10/15/21 @ 00:01 by Gifty Baptiste) Hospital discharge follow-up (Acute) Acute diverticulitis (Acute) Establishing care with new doctor, encounter for (Acute) Morbid obesity due to excess calories (Acute) Diverticulosis (Acute) Change in mole (Acute) Chronic diarrhea (Acute) Abdominal pain (Acute) Anxiety, generalized (Acute) Elevated blood pressure reading (Acute) Chest pain due to GERD (Acute) Diverticulitis (Acute) Past Medical History Medical History Anxiety GERD (gastroesophageal reflux disease) IBS (irritable bowel syndrome) Sleep apnea Family History Family History Father History of heart disease Mother History of lung cancer Hx of breast cancer History of skin cancer Surgical History Surgical History History of medial meniscus repair of left knee History of tonsillectomy and adenoidectomy Social History Social History Household Members: Family Household Members Other:: 2 kids Housing: House Are you a primary acute care nurse to a significant other at home: No Do you presently have visiting nurse or other home services: No Alcohol intake: never Patient Tobacco Use Status: Never used Tobacco Use of substances other than those prescribed or required for medical reasons: No Have you been hit, kicked, punched, or otherwise hurt by someone within the past year? If so, by whom?: No Are you DNR?: No Advance Directives: No Advance Directives Information Provided: No Advance Directives on File: No Recently lost weight without trying: No service: Yes Current occupational status: employed Current occupation: [employer] Allergies Allergy/AdvReac Type Severity Reaction Status Date / Time No Known Allergies Allergy Verified 10/24/21 13:16 [No Known Allergies*] Home Medications Medication Instructions Recorded Confirmed Last Taken Type hydroxyzine HCl 10 mg tablet 1 tab PO BEDTIME 09/29/21 10/24/21 09/28/21 History venlafaxine 75 mg capsule,extended 75 mg PO DAILY 10/24/21 10/24/21 Unknown History release 24 hr (Effexor XR) Exam Exam Date and Time: November 05, 2021 0853 Height,Weight and Vital Signs: Height 5 ft 6 in Weight 113.398 kg
--- NOTE | 2021-11-05 08:53 | HO.ANESPROP2 ---
[facility] Active Problems Active Problems: All Active Problems (Updated 10/15/21 @ 00:01 by Gifty Baptiste) Hospital discharge follow-up (Acute) Acute diverticulitis (Acute) Establishing care with new doctor, encounter for (Acute) Morbid obesity due to excess calories (Acute) Diverticulosis (Acute) Change in mole (Acute) Chronic diarrhea (Acute) Abdominal pain (Acute) Anxiety, generalized (Acute) Elevated blood pressure reading (Acute) Chest pain due to GERD (Acute) Diverticulitis (Acute) Past Medical History Medical History Anxiety GERD (gastroesophageal reflux disease) IBS (irritable bowel syndrome) Sleep apnea Family History Family History Father History of heart disease Mother History of lung cancer Hx of breast cancer History of skin cancer Surgical History Surgical History History of medial meniscus repair of left knee History of tonsillectomy and adenoidectomy History of Problems with Anesthesia: No Social History Social History Household Members: Family Household Members Other:: 2 kids Housing: House Are you a primary director of health care marketing to a significant other at home: No Do you presently have visiting nurse or other home services: No Alcohol intake: never Patient Tobacco Use Status: Never used Tobacco Use of substances other than those prescribed or required for medical reasons: No Have you been hit, kicked, punched, or otherwise hurt by someone within the past year? If so, by whom?: No Are you DNR?: No Advance Directives: No Advance Directives Information Provided: No Advance Directives on File: No Recently lost weight without trying: No service: Yes Current occupational status: employed Current occupation: [employer] Allergies Allergy/AdvReac Type Severity Reaction Status Date / Time No Known Allergies Allergy Verified 10/24/21 13:16 [No Known Allergies*] Home Medications Medication Instructions Recorded Confirmed Last Taken Type hydroxyzine HCl 10 mg tablet 1 tab PO BEDTIME 09/29/21 10/24/21 09/28/21 History venlafaxine 75 mg capsule,extended 75 mg PO DAILY 10/24/21 10/24/21 Unknown History release 24 hr (Effexor XR) Exam Exam Date and Time: November 05, 2021 0853 Height,Weight and Vital Signs: Height 5 ft 6 in Weight 113.398 kg Airway Mallampati Class: III TM Dist: >3cm Neck ROM: Full Loose/Missing/Broken Teeth: No Heart: RRR Lungs: CTA Assessment and Plan Assessment Anesthesia Assessment: Anesthesia Plan Discussed and Chart Reviewed Final Anesthetic Review History of Problems with Anesthesia: No NPO: Yes ASA Class: III Final Preanesthetic Review: Meds/Allgs Chart Reviewed, Consent Obtained/Reviewed and Anes Risks/Benef Reviewed Patient Risk: Intermediate Procedure Risk: Intermediate Anesthetic Plan Anesthetic Plan: MAC: Disposition: Standard PACU
[2021-11-05 08:58] VITALS: BP 150/93; PULSE 89; RESP 16; TEMP 36.4; O2SAT 98
[2021-11-05] MEDS: Lactated Ringers 1,000 ML 50 ML IVCONT (09:00)
--- NOTE | 2021-11-05 09:05 | MHC.SHP ---
Pre-Procedural Eval Section A Date of Service: 11/05/21 The History & Physical has been completed within 30 days and I have reviewed it.: No Section B Chief Complaint: diverticulosis if intestine, Details of Present Illness: History of diverticulitis, chronic diarrhea, rectal bleeding Relevant Family History (Specify if Yes): No Relevant Social History: None Present Medications: see Short Stay Collaborative assessment Medical History: Significant History (GERD, morbid obesity, anxiety disorder, ) History of Previous Operations: No relevant previous surgery (History of medial meniscus repair of left knee History of tonsillectomy and adenoidectomy) Allergies: Allergies Allergy/AdvReac Type Severity Reaction Status Date / Time No Known Allergies Allergy Verified 10/24/21 13:16 [No Known Allergies*] Review of Systems Sugical H&P ROS: Negative: Constitution and Respiratory and Yes, Specify: Cardiovascular (atypical chest pain) and Gastrointestinal (diarrhea, rectal bleeding) Exam Surgical H&P Exam: Normal: Heart, Normal: Lungs, Normal: Extremities and Normal: Abdomen Plan Diagnosis/Plan: Unchanged I have reviewed the history and physical and performed a pertinent physical examination on my patient. No changes have occurred unless specified.
--- NOTE | 2021-11-05 09:07 | P.OP_ITS ---
Operative Note Operative Note Date of Service: 11/05/21 Narrative: Pre-op diagnosis:?GERD, atypical chest pain, Chronic diarrhea, rectal bleeding, history of diverticulitis Post-op diagnosis:?other (Esophagitis, Gastritis, multiple duodenal ulcers, colon polyps, diverticulosis, hemorrhoids) Procedure:? FLEXIBLE TRANSORAL UPPER GASTROINTESTINAL ENDOSCOPY WITH BIOPSIES AND COLONOSCOPY TILL CECUM WITH BIOPSIES AND SNARE POLYPECTOMY UPPER ENDOSCOPY Consent:?Indications for the procedure and potential complications of bleeding, perforation, reaction to medications and missed diagnosis were discussed with the patient and informed consent was obtained. Instrument:?Olympus GIF H 190 mid size upper endoscope Monitoring: Vital signs and clinical assessment, continuous EKG monitoring, Pulse oximetry, Carbon Dioxide monitoring and blood pressure monitoring were done throughout the procedure. Procedure:?The patient was placed in the left lateral decubitis position and pre-procedure medications were administered and a bite block was placed. The endoscope was inserted into the mouth and advanced under direct vision to the third part of duodenum. A careful inspection was made as the upper endoscope was withdrawn including a retroflexed examination of the proximal stomach; Findings and interventions are described below. Findings: Larynx:? Normal Esophagus:?GE junction at 40 cms.? Focal esophagitis at GE junction with multiple superficial healing erosions from 30 to 40 cms. Stomach:?Mild gastric erythema. Biopsies were obtained. Grade 2 flap valve on retroflexed examination of the cardia. Duodenum:?Multiple 1 to 2 cms chronic appearing superficial ulcers in the bulb and proximal descending duodenum.? Biopsies were obtained from 3rd part of duodenum to check for celiac sprue Intervention:?Biopsies as noted above COLONOSCOPY PROCEDURE NOTE Consent:?Indications for the procedure and potential complications of bleeding, perforation, reaction to medications and missed diagnosis were discussed with the patient and informed consent was obtained. Instrument:?Olympus PCF H 190 L variable stiffness pediatric colonoscope Monitoring:?Vital signs and clinical assessment, intermittent blood pressure monitoring, continuous EKG monitoring, Pulse oximetry and Carbon Dioxide monitoring were done throughout the procedure. Colon withdrawl time was 31 minutes. Procedure:?The patient was placed in the left lateral decubitis position and pre-procedure medications were administered. After a digital rectal examination of the ano-rectum, the video colonoscope was inserted into the rectum and advanced through the colon to the cecum. The colonoscope was slowly withdrawn in a retrograde panoramic fashion and the colon mucosa was carefully examined including a retroflexed view of the rectum. Findings and interventions are described below. Procedure Difficulty:?: Without difficulty Findings: Terminal Ileum: Distal 10 cms was examined and showed 1-2 cms benign appearing nodules without ulcerations - biopsies obtained Cecum:? Normal Ascending Colon:??A 12-15 mm sessile polyp removed with a cold snare Transverse Colon: A 12 -15 mm sessile polyp in the distal TC at 60 cms seen briefly and not visualized again despite multiple passes. Descending Colon:? Moderate diverticulosis Sigmoid Colon:? Patchy erythema and?moderate diverticulosis Rectum:??Normal Ano-rectum:??Moderate internal hemorrhoids Colon preparation:? Good after some irrigation Impression and Post Procedure Diagnosis: Endoscopy Findings: ESOPHAGUS: GE junction at 40 cms.? Focal esophagitis at GE junction with multiple superficial healing erosions from 30 to 40 cms. STOMACH:? Gastritis DUODENUM: Multiple 1 to 2 cms chronic appearing superficial ulcers in the bulb and proximal descending duodenum.? Biopsies were obtained from 3rd part of duodenum to check for celiac sprue Colonoscopy Findings: One medium sized polyp removed.? A 2nd polyp visualized briefly and not seen again despite multiple passes. Moderate diverticulosis seen in the left colon Moderate hemorrhoids on retroflexed exam. Plan: Await pathology results. Continue omeprazole 40 mg daily and avoid NSAIDs Patient has an appointment on 11/19/20 in the [facility] Clinic with ROXANA Noel . Repeat Colonoscopy in 1 year since a polyp was seen briefly and not removed. Above findings were reviewed with the patient and PUD, colon polyps and diverticulosis handouts were given in the discharge area Surgeon:?Silverio Jasmine MD Anesthesia:?MAC (Dr Krause) Was an Operator/Assistant Foreman used for this Procedure?:?Yes Operator/Assistant Foreman:?Lauren Weaver Estimated blood loss (mL):?0 Pathology:?other (A. small bowel bxs, R/O celiac? B. gastric antrum bxs, R/O H. pylori? C. T-I bxs, R/O Crohn's? D. right colon biopsies, R/O IBD? E. ascending colon polyp? F. left colon bx's r/o ib) Condition:?stable Disposition:?PACU
--- NOTE | 2021-11-05 09:07 | P.BOP_ITS ---
Brief Operative Note Date of Service: 11/05/21 Pre-op diagnosis: GERD, atypical chest pain, Chronic diarrhea, rectal bleeding, history of diverticulitis Post-op diagnosis: other (Esophagitis, Gastritis, multiple duodenal ulcers, colon polyps, diverticulosis, hemorrhoids) Procedure: FLEXIBLE TRANSORAL UPPER GASTROINTESTINAL ENDOSCOPY WITH BIOPSIES AND COLONOSCOPY TILL CECUM WITH BIOPSIES AND SNARE POLYPECTOMY UPPER ENDOSCOPY Consent: Indications for the procedure and potential complications of bleeding, perforation, reaction to medications and missed diagnosis were discussed with the patient and informed consent was obtained. Instrument: Olympus GIF H 190 mid size upper endoscope Monitoring: Vital signs and clinical assessment, continuous EKG monitoring, Pulse oximetry, Carbon Dioxide monitoring and blood pressure monitoring were done throughout the procedure. Procedure: The patient was placed in the left lateral decubitis position and pre-procedure medications were administered and a bite block was placed. The endoscope was inserted into the mouth and advanced under direct vision to the third part of duodenum. A careful inspection was made as the upper endoscope was withdrawn including a retroflexed examination of the proximal stomach; Findings and interventions are described below. Findings: Larynx: Normal Esophagus: GE junction at 40 cms. Focal esophagitis at GE junction with multiple superficial healing erosions from 30 to 40 cms. Stomach: Mild gastric erythema. Biopsies were obtained. Grade 2 flap valve on retroflexed examination of the cardia. Duodenum: Multiple 1 to 2 cms chronic appearing superficial ulcers in the bulb and proximal descending duodenum. Biopsies were obtained from 3rd part of duodenum to check for celiac sprue Intervention: Biopsies as noted above COLONOSCOPY PROCEDURE NOTE Consent: Indications for the procedure and potential complications of bleeding, perforation, reaction to medications and missed diagnosis were discussed with the patient and informed consent was obtained. Instrument: Olympus PCF H 190 L variable stiffness pediatric colonoscope Monitoring: Vital signs and clinical assessment, intermittent blood pressure monitoring, continuous EKG monitoring, Pulse oximetry and Carbon Dioxide monitoring were done throughout the procedure. Colon withdrawl time was 31 minutes. Procedure: The patient was placed in the left lateral decubitis position and pre-procedure medications were administered. After a digital rectal examination of the ano-rectum, the video colonoscope was inserted into the rectum and advanced through the colon to the cecum. The colonoscope was slowly withdrawn in a retrograde panoramic fashion and the colon mucosa was carefully examined including a retroflexed view of the rectum. Findings and interventions are described below. Procedure Difficulty: : Without difficulty Findings: Terminal Ileum: Distal 10 cms was examined and showed 1-2 cms benign appearing nodules without ulcerations - biopsies obtained Cecum: Normal Ascending Colon: A 12-15 mm sessile polyp removed with a cold snare Transverse Colon: A 12 -15 mm sessile polyp in the distal TC at 60 cms seen briefly and not visualized again despite multiple passes. Descending Colon: Moderate diverticulosis Sigmoid Colon: Patchy erythema and moderate diverticulosis Rectum: Normal Ano-rectum: Moderate internal hemorrhoids Colon preparation: Good after some irrigation Impression and Post Procedure Diagnosis: Endoscopy Findings: ESOPHAGUS: GE junction at 40 cms. Focal esophagitis at GE junction with multiple superficial healing erosions from 30 to 40 cms. STOMACH: Gastritis DUODENUM: Multiple 1 to 2 cms chronic appearing superficial ulcers in the bulb and proximal descending duodenum. Biopsies were obtained from 3rd part of duodenum to check for celiac sprue Colonoscopy Findings: One medium sized polyp removed. A 2nd polyp visualized briefly and not seen again despite multiple passes. Moderate diverticulosis seen in the left colon Moderate hemorrhoids on retroflexed exam. Plan: Await pathology results. Continue omeprazole 40 mg daily and avoid NSAIDs Patient has an appointment on 11/19/20 in the GI Clinic with ROXANA Noel . Repeat Colonoscopy in 1 year since a polyp was seen briefly and not removed. Above findings were reviewed with the patient and PUD, colon polyps and diverticulosis handouts were given in the discharge area Surgeon: Silverio Jasmine MD Anesthesia: MAC (Dr Krause) Was an Armament Mechanic used for this Procedure?: Yes Armament Mechanic: Lauren Weaver Estimated blood loss (mL): 0 Pathology: other (A. small bowel bxs, R/O celiac B. gastric antrum bxs, R/O H. pylori C. T-I bxs, R/O Crohn's D. right colon biopsies, R/O IBD E. ascending colon polyp F. left colon bx's r/o ib) Condition: stable Disposition: PACU
[2021-11-05 10:17] VITALS: BP 128/77; PULSE 93; RESP 18; TEMP 37.2; O2SAT 98
[2021-11-05 10:32] VITALS: BP 124/82; PULSE 78; RESP 18; O2SAT 96
== END 2021-11-05 11:10 ==
LOC: HO.SSS 08:46
PROVIDERS: PCP Internal Medicine; Visit Provider Internal Medicine Gastroenterology
PROC: (CPT 45385; principal; 2021-11-05 12:50)
DX: K57.90 Diverticulosis of intestine, part unspecified, without perforation or abscess without bleeding (principal); Z87.19 Personal history of other diseases of the digestive system; D12.2 Benign neoplasm of ascending colon; K64.8 Other hemorrhoids; K21.9 Gastro-esophageal reflux disease without esophagitis; K20.80 Other esophagitis without bleeding; K29.50 Unspecified chronic gastritis without bleeding; K26.9 Duodenal ulcer, unspecified as acute or chronic, without hemorrhage or perforation; Z79.899 Other long term (current) drug therapy
CPT/HCPCS: 45385; 45380; 43239; 88305; 88342

== ENCOUNTER → 2021-12-11 12:52 | Outpatient (BNVA) | payer BC, SELFPAY | PROVIDERS: PCP Internal Medicine; Visit Provider Physician Assistant ==

== ENCOUNTER → 2022-04-02 13:19 | Outpatient (BNVA) | payer OTHER, SELFPAY | PROVIDERS: PCP Internal Medicine; Referring Provider Internal Medicine; Visit Provider Physician Assistant | DX: R07.9 Chest pain, unspecified (principal); R10.9 Unspecified abdominal pain; K57.90 Diverticulosis of intestine, part unspecified, without perforation or abscess without bleeding; K21.9 Gastro-esophageal reflux disease without esophagitis | CPT/HCPCS: 99212 ==

== ENCOUNTER 2022-04-18 14:58 | Emergency (ER) | payer OTHER, SELFPAY ==
--- NOTE | ~2022-04-18 | CT_ITS ---
EXAMINATION: CT ABDOMEN AND PELVIS WITHOUT CONTRAST CLINICAL INFORMATION: Left lower quadrant pain COMPARISON: CT of abdomen pelvis with contrast 10/02/2021. TECHNIQUE: Multidetector volumetric imaging was performed from the superior aspect of the liver through the pubic symphysis. Sagittal and coronal reformatted images were obtained on the technologist's workstation. This CT examination was performed using dose optimization techniques as appropriate, variously including the following: *Automated exposure control *Adjustment of mA and/or kV according to patient size (this includes techniques or standardized protocols for targeted exams where dose is matched to indication/reason for exam; i.e. extremities or head) *Use of iterative reconstruction technique DLP: 805 mGy-cm FINDINGS: LUNG BASES: The lung bases are unremarkable. The heart size is normal. LIVER, GALLBLADDER, AND BILIARY TREE: The liver is normal in size, shape, and diffuse hypoattenuation. No focal hepatic lesion or biliary ductal dilatation is present. The gallbladder is unremarkable with no evidence of radiopaque gallstones, gallbladder wall thickening, or obvious pericholecystic inflammatory changes. PANCREAS: Unremarkable. SPLEEN: Unremarkable. ADRENAL GLANDS: Bilateral adrenal glands are unremarkable. KIDNEYS AND URETERS: The kidneys are normal in size, shape, and attenuation. No hydronephrosis, hydroureter, or calculi seen. No perinephric stranding. BLADDER: Unremarkable. GASTROINTESTINAL TRACT: There is scattered diverticuli, stool and gas seen throughout the colon without distention. There is mural thickening and pericolic fat stranding in the sigmoid colon consistent with acute diverticulitis. There is no free air or abscess. No proximal bowel obstruction seen. The small bowel loops are normal caliber. Appendix is not visualized. The stomach is nondistended. ABDOMINAL WALL: No significant hernia is appreciated. LYMPH NODES: Normal. VASCULAR: Unremarkable. PELVIC VISCERA: There are no abnormal lymph nodes. No evidence of hernia. OSSEOUS STRUCTURES: Unremarkable. CT/CT abdomen pelvis wo con IMPRESSION: Colonic diverticulosis with acute sigmoid diverticulitis. No free air or abscess visualized. No proximal bowel obstruction. Diffuse fatty infiltration of liver without focal lesion. Fleischner guidelines were followed.
[2022-04-18 15:14] VITALS: BP 156/106; PULSE 97; RESP 20; TEMP 36.6; O2SAT 98; BMI 40.3
[2022-04-18 15:28] LABS: Hematocrit 42.7 % (42.0-52.0); Hemoglobin 14.7 g/dl (14.0-18.0); Mean Corpuscular HGB Conc 34.4 g/dl (31.0-36.0); Mean Corpuscular Hemoglobin 29.2 pg (27.0-33.0); Mean Corpuscular Volume 84.7 fL (80.0-98.0); Mean Platelet Volume 8.9 fL (9.4-12.4); Platelet Count 368 X10*3/uL (160-400); Red Blood Count 5.04 X10*6/uL (4.60-5.80); White Blood Count 12.8 X10*3/uL (4.8-10.8)
[2022-04-18 15:42] LABS: Anion Gap 17 (12-20); Blood Urea Nitrogen 14 mg/dL (9-16); Calcium 9.5 mg/dL (8.4-10.2); Carbon Dioxide 21 mmol/L (22-29); Chloride 103 mmol/L (96-108); Creatinine Clr Calc Pharmacy 101.1; Estimated Glomerular Filt Rate > 60; Glucose Random 125 mg/dL (60-115); Lipase 17 U/L (8-78); Potassium 3.8 mmol/L (3.3-5.1); Sodium 137 mmol/L (135-145)
--- NOTE | 2022-04-18 20:14 | ED.ABDPAIN ---
HPI - Abdominal Pain General Chief Complaint: Abdominal Pain Stated Complaint: abd pain Time Seen by Provider: 04/18/22 20:06 Source: patient Limitations: no limitations History of Present Illness HPI narrative: This is a 37-year-old male with a history of perforated diverticulitis last fall, who around noon today developed pain in his left lower quadrant. Pain came on relatively suddenly and associated with nausea and sweats and radiation of the pain to his testicle. Patient denies any flank pain. He denies any history of kidney stones. He denies any hematuria. Pain has been constant. He denies any fever. He has had a mild cough today, denies shortness of breath Related Data Home Medications Medication Instructions Recorded Confirmed hydroxyzine HCl 10 mg tablet 1 tab PO BEDTIME 09/29/21 04/02/22 venlafaxine 75 mg capsule,extended 75 mg PO DAILY 10/24/21 04/02/22 release 24 hr (Effexor XR) sertraline 50 mg tablet (Zoloft) 50 mg PO DAILY 04/02/22 04/02/22 Previous Rx's Medication Instructions Recorded famotidine 40 mg tablet (Pepcid) 40 mg PO BEDTIME #30 tab 07/20/21 lorazepam 0.5 mg tablet (Ativan) 0.5 mg PO DAILY PRN #10 tab 10/04/21 pantoprazole 20 mg tablet,delayed 40 mg PO ONCE 30 Days #60 tab 12/11/21 release methylcellulose (laxative) 500 mg 500 mg PO TID #90 tab 04/02/22 tablet (Citrucel) sucralfate 100 mg/mL oral 10 ml PO BID #420 ml 04/02/22 suspension (Carafate) amoxicillin 875 mg-potassium 1 tab PO BID #14 tab 04/18/22 clavulanate 125 mg tablet docusate sodium 100 mg capsule 100 mg PO BID #14 cap 04/18/22 (Colace) ibuprofen 600 mg tablet 600 mg PO Q6H PRN #30 tab 04/18/22 tramadol 50 mg tablet 50 - 100 mg PO Q4H PRN #20 tab 04/18/22 Allergies Allergy/AdvReac Type Severity Reaction Status Date / Time No Known Allergies Allergy Verified 04/02/22 13:20 [No Known Allergies*] Review of Systems Review of Systems Yes all other systems are reviewed and are negative Constitutional: Reports as per HPI and Denies fever(s) Eyes: Reports as per HPI and Reports no additional eye complaints Reports system reviewed and no additional complaints, except as documented, Reports as per HPI, Denies nasal congestion, Denies nasal discharge and Denies sore throat Cardiovascular: Reports as per HPI, Denies chest pain and Denies dyspnea Respiratory: Reports as per HPI, Reports cough and Denies dyspnea Gastrointestinal: Reports as per HPI, Reports abdominal pain, Denies diarrhea and Denies vomiting Genitourinary: Reports as per HPI, Denies hematuria, Denies dysuria and Denies urinary frequency Musculoskeletal: Reports no additional musculoskeletal complaints and Denies numbness Skin/Breast: Reports as per HPI and Denies rash Reports as per HPI, Denies focal weakness and Denies numbness Psychiatric: Reports no additional psychiatric complaints and Reports as per HPI Endocrine: Reports no additional endocrine complaints and Reports as per HPI Hematologic/Lymphatic: Reports no additional hematologic/lymphatic complaints, Reports as per HPI and Reports other (No peripheral edema) [facility] Past Medical History Medical History (Updated 04/18/22 @ 21:25 by Soham Manrique MD) Anxiety Chest pain GERD (gastroesophageal reflux disease) IBS (irritable bowel syndrome) Sleep apnea Surgical History History of medial meniscus repair of left knee History of tonsillectomy and adenoidectomy Hx of colonoscopy Family History Family History Father History of heart disease Mother History of lung cancer Hx of breast cancer History of skin cancer Social History Social History Household Members: Family Household Members Other:: 2 kids Housing: House Are you a primary career development counselor to a significant other at home: No Do you presently have visiting nurse or other home services: No Alcohol intake: never Patient Tobacco Use Status: Never used Tobacco Advance Directives: No Advance Directives Information Provided: No service: Yes Current occupational status: employed Current occupation: [employer]- Physical Exam ED Vital Signs: Vital Signs - 24 hr 04/18/22 15:14 Temperature 97.9 F Pulse Rate 97 Respiratory Rate 20 Blood Pressure 156/106 H Pulse Oximetry 98 BMI result Body Mass Index 40.3 Const General: no acute distress Orientation/consciousness: patient oriented x3 HENMT Head: Yes normal to inspection General nose exam: Normal external nose present Mouth: moist mucous membranes Throat: Yes posterior oropharynx normal, Yes tonsils normal and Yes uvula midline Eyes Eyelids: Yes eyelids normal Conjunctivae: conjunctivae normal Pupils: Equal, round and reactive pupils present Neck Neck: Yes supple Resp Effort & Inspection: normal respiratory effort Auscultation: clear to auscultation bilaterally Cardio Rate: regular rate Rhythm: regular rhythm Heart sounds: S1 normal heart sound present, S2 normal heart sound present, no gallops, no murmurs and no rubs GI Inspection: No distended Palpation (GI): Soft to palpation and Tenderness to palpation present (GI) (Mildly tender left lower quadrant) Auscultation: normal bowel sounds Skin General skin exam: other (Warm and dry) Neuro General: patient oriented x3 and CN's II-XI intact bilaterally Cranial nerves: Yes Equal, round and reactive pupils present Extrem General: Yes no pedal edema Psych Affect: normal affect Attitude: cooperative MDM - Abdominal Pain MDM Narrative Medical decision making narrative: Patient with recurrent diverticulitis, onset today. No evidence of perforation abscess. Patient is being treated with Augmentin. Patient seemed to have pain out of proportion to likely pathology and requested pain medicine. Patient is safe for outpatient treatment Medical Records Attestation: I reviewed the patient's medical records. Lab Data Attestation: I reviewed the patient's lab results. Result diagrams: 04/18/22 15:19 04/18/22 15:19 Labs: Lab Results 04/18/22 04/18/22 Range/Units 15:19 15:19 WBC 12.8 H (4.8-10.8) X10*3/uL RBC 5.04 (4.60-5.80) X10*6/uL Hgb 14.7 (14.0-18.0) g/dl Hct 42.7 (42.0-52.0) % MCV 84.7 (80.0-98.0) fL MCH 29.2 (27.0-33.0) pg MCHC 34.4 (31.0-36.0) g/dl RDW 13.0 (11.0-16.0) % Plt Count 368 (160-400) X10*3/uL MPV 8.9 L (9.4-12.4) fL Absolute Nucleated RBC 0.000 (0.0-0.012) X10*3/uL Nucleated RBC % (auto) 0.0 (0.0-0.2) /100WBC Sodium 137 (135-145) mmol/L Potassium 3.8 (3.3-5.1) mmol/L Chloride 103 (96-108) mmol/L Carbon Dioxide 21 L (22-29) mmol/L Anion Gap 17 (12-20) BUN 14 (9-16) mg/dL Creatinine 1.16 (0.5-1.4) mg/dL Estim Creat Clear Calc 101.1 Estimated GFR > 60 Random Glucose 125 H (60-115) mg/dL Calcium 9.5 (8.4-10.2) mg/dL Lipase 17 (8-78) U/L Imaging Data CT abdomen and pelvis without contrast: Radiologist's impression: IMPRESSION: Colonic diverticulosis with acute sigmoid diverticulitis. No free air or abscess visualized. No proximal bowel obstruction. ? Diffuse fatty infiltration of liver without focal lesion.? Discharge Plan Discharge Clinical Impression: Acute diverticulitis Patient Disposition: Home, Self-Care Instructions: Diverticulitis (ED) Additional Instructions: Take the Augmentin as prescribed. Use the ibuprofen and tramadol as needed for pain. Use Colace to help keep her stool soft. Return for any new or worsened symptoms. [facility] Prescriptions: New amoxicillin-pot clavulanate 875-125 mg tablet 1 tab PO BID Qty: 14 0RF docusate sodium [Colace] 100 mg capsule 100 mg PO BID Qty: 14 0RF tramadol 50 mg tablet 50 - 100 mg PO Q4H PRN (Reason: pain) Qty: 20 0RF ibuprofen 600 mg tablet 600 mg PO Q6H PRN (Reason: pain) Qty: 30 0RF No Action hydroxyzine HCl 10 mg tablet 1 tab PO BEDTIME 0RF lorazepam [Ativan] 0.5 mg tablet 0.5 mg PO DAILY PRN (Reason: anxiety) Qty: 10 0RF famotidine [Pepcid] 40 mg tablet 40 mg PO BEDTIME Qty: 30 2RF pantoprazole 20 mg tablet,delayed release (DR/EC) 40 mg PO ONCE 30 Days Qty: 60 6RF venlafaxine [Effexor XR] 75 mg capsule,extended release 24hr 75 mg PO DAILY 0RF sertraline [Zoloft] 50 mg tablet 50 mg PO DAILY 0RF Citrucel 500 mg tablet 500 mg PO TID Qty: 90 5RF sucralfate [Carafate] 100 mg/mL suspension 10 ml PO BID Qty: 420 0RF Interventions: ED Discharge Assessment Last Done: 04/18/22 22:28 Discharge Date/Time: 04/18/22 22:31
[2022-04-18] MEDS: Ketorolac Tromethamine 15 MG/ML VIAL IVPUSH (20:38)
[2022-04-18] MEDS: 0.9 % Sodium Chloride 1,000 ML 999 ML IV (20:50)
[2022-04-18] MEDS: Amoxicillin/Potassium Clav 875 MG TABLET PO (21:55)
[2022-04-18] MEDS: Morphine Sulfate 4 MG/ML CARTRIDGE IVPUSH (22:25)
== END 2022-04-18 22:31 | disposition home or self-care (01) ==
PROVIDERS: Emergency Provider Emergency Medicine; PCP Internal Medicine
DX: K57.92 Diverticulitis of intestine, part unspecified, without perforation or abscess without bleeding (principal)
CPT/HCPCS: 36415; 74176; 80048; 83690; 85027; 96361; 96374; 96375; 99282; 99284; J1885; J2270

== ENCOUNTER → 2022-08-14 08:56 | Outpatient (BNVA) | payer BC, SELFPAY | PROVIDERS: PCP Internal Medicine; Referring Provider Internal Medicine; Visit Provider Internal Medicine Cardiovascular Disease | DX: R07.9 Chest pain, unspecified (principal) | CPT/HCPCS: 93005 ==

== ENCOUNTER → 2022-08-21 09:51 | Outpatient (REF) | payer BC, SELFPAY ==
--- NOTE | 2022-08-21 09:54 | CA_ITS ---
Acquisition Time: 2022-08-21 10:00:47 Total Exercise Time: 00:06:41 Test Indications: CP Medications: SEE CHART Protocol: ARIK Max HR: 179 BPM 98% of Pred: 181 BPM Max BP: 186/088 mmHG Max Work Load: 8.0 METS Exercise stress test with exercise 6 min 41 sec of Arik protocol, achieving 97% MPHR, with mild sob and request to stop, no chest discomfort, with isolated PACs, with normotensive response to exercise, without EKG changes meeting criteria for ischemia. Test reviewed with Dr Luna Referred By: Driss Luan Overread By: CARO TSAI
[2022-08-21 12:00] LABS: Cholesterol 268 mg/dL; HDL Cholesterol 38 mg/dL; LDL Cholesterol Calculated 163 mg/dl; Triglycerides 339 mg/dL
== END ==
LOC: HO.CARD 09:51
PROVIDERS: PCP Internal Medicine; Visit Provider Internal Medicine Cardiovascular Disease
DX: R07.9 Chest pain, unspecified (principal); I25.10 Atherosclerotic heart disease of native coronary artery without angina pectoris; E78.5 Hyperlipidemia, unspecified
CPT/HCPCS: 36415; 80061; 86141; 93017

== ENCOUNTER → 2022-12-24 14:53 | Outpatient (BNVA) | payer BC, SELFPAY | PROVIDERS: PCP Internal Medicine; Referring Provider Internal Medicine; Visit Provider Internal Medicine Cardiovascular Disease | DX: Z13.89 Encounter for screening for other disorder (principal) ==

== ENCOUNTER → 2022-12-30 11:44 | Outpatient (BNVA) | payer BC, SELFPAY | PROVIDERS: PCP Internal Medicine; Visit Provider Physician Assistant | DX: Z13.89 Encounter for screening for other disorder (principal) ==

== ENCOUNTER 2024-01-20 05:05 | Emergency (ER) | payer OTHER, SELFPAY ==
--- NOTE | ~2024-01-20 | CT_ITS ---
EXAMINATION: CT ABDOMEN AND PELVIS WITH CONTRAST CLINICAL INFORMATION: Abdominal pain. Feels as though something has popped. COMPARISON: CT abdomen pelvis 04/18/2022 TECHNIQUE: Multidetector volumetric images were obtained from the superior aspect of the liver through the pubic symphysis following administration 85 mL of Omnipaque 350 intravenous contrast. Sagittal and coronal reformatted images were obtained on the technologist's workstation. Oral contrast: No This CT examination was performed using dose optimization techniques as appropriate, variously including the following: *Automated exposure control *Adjustment of mA and/or kV according to patient size (this includes techniques or standardized protocols for targeted exams where dose is matched to indication/reason for exam; i.e. extremities or head) *Use of iterative reconstruction technique DLP: 763 mGy-cm FINDINGS: LUNG BASES: The visualized lung bases are unremarkable. LIVER, GALLBLADDER, AND BILIARY TREE: The liver is mildly enlarged at 18 cm in cephalocaudad dimension. Attenuation is decreased suggesting hepatic steatosis. No focal hepatic lesion or biliary ductal dilatation is present. The gallbladder is unremarkable with no evidence of radiopaque gallstones, gallbladder wall thickening, or obvious pericholecystic inflammatory changes. PANCREAS: Unremarkable. SPLEEN: Spleen is mildly enlarged at 12.8 cm in cephalocaudad dimension. ADRENAL GLANDS: Unremarkable. KIDNEYS AND URETERS: The kidneys are normal in size, shape, and attenuation. No hydronephrosis, hydroureter, or calculi seen. No perinephric stranding. BLADDER: The bladder wall is symmetrically thickened. GASTROINTESTINAL TRACT: Interval sigmoid resection since the prior study no evidence of diverticulitis at this time. The small and large bowel are unremarkable. The appendix is unremarkable. ABDOMINAL WALL: There is a hernia through the rectus muscle on the left containing only fat, new when compared to the prior study the fascial defect measures 3.5 x 5.3 cm. A small periumbilical hernia seen containing only fat (6:76). There is a small midline epigastric hernia seen containing only fat again (6:76). Since the prior study, the patient has undergone partial sigmoid resection and I assume there is no herniation of the left rectus muscle is probably at an incision site. LYMPH NODES: No retroperitoneal lymphadenopathy. VASCULAR: Unremarkable. PELVIC VISCERA: The prostate and seminal vesicles are unremarkable. OSSEOUS STRUCTURES: Unremarkable. CT/CT abdomen pelvis w IV con IMPRESSION: 1. New left rectus muscle hernia containing only fat which is most likely the cause of the patient's abdominal pain related to the feeling that something popped. 2. Incidental note made of mildly enlarged fatty liver, mild splenomegaly, symmetric bladder wall thickening and interval sigmoid resection. 3. Small periumbilical and epigastric hernias containing only fat. Fleischner guidelines were followed.
[2024-01-20 05:07] VITALS: BP 176/104; PULSE 93; RESP 18; TEMP 36.1; O2SAT 95; BMI 39.9
[2024-01-20 06:18] VITALS: BP 143/94; PULSE 90; RESP 17; TEMP 36.9; O2SAT 96
--- NOTE | 2024-01-20 06:45 | ED_ITS ---
HPI - General Adult General Chief complaint: Abdominal Pain Stated complaint: Abd pain Time Seen by Provider: 01/20/24 06:44 Source: patient Mode of arrival: ambulatory Limitations: no limitations History of Present Illness HPI narrative: Patient is 38 year old male with a history of GERD, HLD, and diverticulitis presents to the ED with a 5 hour history of abdominal pain. Patient reports he has been coughing a lot after being diagnosed with bronchitis on 01/18/24. This morning around 0200 hours, he felt a pop in his abdomen, and has since has been experiencing a dull aching pain in the area since. The patient does report a surgical history significant for a colostomy in April 2022 with a reversal in September 2022. MD complaint: Abdominal pain Onset (ago): hour(s) (5) Location: abdomen Radiation: non-radiation Severity: mild Severity scale (1-10): 2 Quality: aching and dull Pain Consistency: intermittent Relieving factors: none Exacerbating factors: movement and other (coughing) Associated symptoms: denies other symptoms Treatments prior to arrival: none Related Data Previous Rx's Medication Instructions Recorded rosuvastatin 20 mg tablet 20 mg PO DAILY #30 tabs 12/24/22 methylcellulose (laxative) 500 mg 500 mg PO TID #90 tabs 12/30/22 tablet (Citrucel) Allergies Allergy/AdvReac Type Severity Reaction Status Date / Time No Known Allergies Allergy Verified 01/20/24 05:07 [No Known Allergies*] Review of Systems 2 Constitutional: Constitutional: Reports no additional constitutional complaints, Denies chills, Denies fever(s) and Denies night sweats Eyes: Eyes: Reports no additional eye complaints, Denies blurry vision, Denies change in vision, Denies diplopia, Denies eye discharge, Denies loss of vision and Denies eye pain ENT: Denies dizziness, Reports nasal congestion and Reports nasal discharge Cardiovascular: Cardiovascular: Reports no additional cardiovascular complaints, Denies chest pain, Denies lightheadedness, Denies Loss of Consciousness and Denies dyspnea Respiratory: Respiratory: Reports no additional respiratory complaints, Reports cough and Denies dyspnea Gastrointestinal: Gastrointestinal: Reports no additional gastrointestinal complaints, Reports abdominal pain, Denies melena, Denies hematochezia, Denies change in bowel habits and Denies change in stool character Genitourinary: Genitourinary: Reports no additional male genitourinary complaints, Denies hematuria, Denies oliguria, Denies difficulty urinating, Denies dysuria, Denies urinary frequency, Denies urinary hesitancy, Denies urinary incontinence and Denies urinary urgency Musculoskeletal: Musculoskeletal: Reports no additional musculoskeletal complaints, Denies numbness and Denies tingling Neurologic: Denies dizziness, Denies loss of vision, Denies numbness and Denies tingling Psychiatric: Psychiatric: Reports no additional psychiatric complaints Endocrine: Endocrine: Reports no additional endocrine complaints Hematologic/Lymphatic: Hematologic/Lymphatic: Reports no additional hematologic/lymphatic complaints Allergic/Immunologic: Allergic/Immunologic: Reports no additional allergic/immunologic complaints PMFSH Past Medical History Attestation statement: The following information was validated with the patient. Source: old records reviewed and nursing notes reviewed Medical History (Updated 01/20/24 @ 11:41 by ROXANA Jin) Chest pain Hospital discharge follow-up Acute diverticulitis Abdominal pain Morbid obesity due to excess calories Establishing care with new doctor, encounter for Sleep apnea IBS (irritable bowel syndrome) Anxiety GERD (gastroesophageal reflux disease) Surgical History History of colostomy reversal Hx of colectomy Hx of colonoscopy History of medial meniscus repair of left knee History of tonsillectomy and adenoidectomy Family History Family History Father History of heart disease Mother History of lung cancer Hx of breast cancer History of skin cancer Social History Social History Household Members: Family Household Members Other:: 2 kids Housing: House Are you a primary field care advocate to a significant other at home: No Do you presently have visiting nurse or other home services: No Alcohol intake: never Patient Tobacco Use Status: Never used Tobacco Smoked in Last 30 Days: No Advance Directives: No Advance Directives Information Provided: Yes service: Yes Current occupational status: employed Current occupation: [employer]- Physical Exam ED Vital Signs: Vital Signs - 24 hr 01/20/24 05:07 01/20/24 06:18 01/20/24 08:33 Temperature 97 F 98.4 F 97.9 F Pulse Rate 93 90 81 Respiratory Rate 18 17 16 Blood Pressure 176/104 H 143/94 H 138/88 Pulse Oximetry 95 96 96 Oxygen Delivery Method Room Air Room Air Room Air 01/20/24 11:01 Temperature 98.5 F Pulse Rate 81 Respiratory Rate 16 Blood Pressure 137/88 Pulse Oximetry 97 Oxygen Delivery Method Room Air BMI result Body Mass Index 39.9 Const General: cooperative, no acute distress, alert and awake Nutritional Appearance: obese Orientation/consciousness: patient oriented x3 Limitations: no limitations HENMT Head: Yes normal to inspection Ears: hearing grossly normal bilaterally General nose exam: Normal external nose present Face and sinus: Yes normal facial exam Mouth: Normal oral and palatal mucosa present, no drooling and no muffled voice Eyes General: appearance normal, both eyes and all related structures Periorbital: periorbital findings normal Eyelids: Yes eyelids normal Conjunctivae: conjunctivae normal Pupils: Equal, round and reactive pupils present EOM: EOMs intact bilaterally Neck Neck: Yes normal visual inspection, Yes full ROM and Yes no lymphadenopathy Chest Chest palpation & inspection: normal inspection of the chest Resp Effort & Inspection: normal respiratory effort and able to speak in complete sentences GI Inspection: Yes obesity Palpation (GI): Soft to palpation, nontender, no guarding and Hernia present other (Reducible incisional hernia in the left epigastric region.) Auscultation: normal bowel sounds Neuro General: patient oriented x3 Cranial nerves: Yes Equal, round and reactive pupils present Cognition (Neuro): normal cognition Motor exam (neuro): 5/5 motor strength present throughout Sensory Exam: Normal double simultaneous stimulation for sensation Coordination: [id number] test normal Extrem General: Yes normal to inspection, Yes full ROM and Yes capillary refill normal Psych Appearance: grossly normal Mental Status: mental status grossly normal Affect: normal affect Attitude: cooperative Thought process: Normal thought process present Thought content: Normal thought content present Insight: Good insight present (Psych) Medications Administered Discontinued Medications Generic Name Dose Route Start Last Admin Trade Name Freq PRN Reason Stop Dose Admin Iohexol 100 ml 01/20/24 09:26 01/20/24 09:26 Iohexol 350 Mg/Ml 100 Ml Infus..Btl IV 01/20/24 09:27 85 ml ONCE ONE Administration Medical Decision Making Medical Decision Making MDM Narrative: Patient is a 38 year old assigned male at with a history of IBS, diverticulitis, and anxiety presenting to the emergency department today with abdominal pain. Patient's physical exam showed multiple reducible hernias of the abdomen but was otherwise unremarkable. Patient's blood work was unremarkable. Patient's urine showed no acute process. Patient's abdominal / pelvis CT showed a new left rectus muscle hernia containing only fat. I explained my physical exam findings as well as all test results to the patient. I answered all questions asked by the patient. I stressed the importance of the patient taking his medication as prescribed. I stressed the importance of the patient following up with his primary care provider and a general surgeon. I stressed the importance of the patient returning to the emergency department immediately if his symptoms were to worsen or if he were to develop any dizziness, shortness of breath, difficulty breathing, chest pain, blurry vision, loss of vision, nausea, vomiting, abdominal pain, fever, chills, back pain, or any other complaints. Patient verbalized agreement and understanding with this treatment plan and discharge. Differential Diagnosis Differential Diagnoses: The differential diagnosis associated with the presentation includes Abdominal pain Hernia Admission/Observation Consideration of admission/observation: Escalation of care including admission/observation considered Patient would have been admitted to the hospital had his work up had any findings where hospital admission was appropriate and his clinical presentation warranted hospital admission. Lab Data [facility] Lab Attestation statement: I reviewed the patient's lab results. My interpretation of these results are in the [facility] Rationale portion of this note. 01/20/24 08:39 01/20/24 08:39 Labs: Lab Results 01/20/24 Range/Units 08:39 WBC 8.5 (4.8-10.8) X10*3/uL RBC 4.87 (4.60-5.80) X10*6/uL Hgb 14.1 (14.0-18.0) g/dl Hct 41.6 L (42.0-52.0) % MCV 85.4 (80.0-98.0) fL MCH 29.0 (27.0-33.0) pg MCHC 33.9 (31.0-36.0) g/dl RDW 13.3 (11.0-16.0) % Plt Count 292 (160-400) X10*3/uL MPV 9.0 L (9.4-12.4) fL Immature Gran % (Auto) 0.5 H (0.0-0.4) % Neut % (Auto) 75.5 H (45-73) % Lymph % (Auto) 20.3 (20-40) % [place] % (Auto) 3.0 (2-11) % Eos % (Auto) 0.2 (0-4) % Baso % (Auto) 0.5 (0-2) % Lymph # (Auto) 1.7 (1.2-4.9) X10*3/uL [place] # (Auto) 0.3 (0.1-1.2) X10*3/uL Eos # (Auto) 0.0 (0.0-0.4) X10*3/uL Baso # (Auto) 0.0 (0.0-0.2) X10*3/uL Abs Immat Gran (auto) 0.04 H (0.00-0.03) X10*3/uL Absolute Neuts (auto) 6.5 (2.0-8.3) x10*3/uL Absolute Nucleated RBC 0.000 (0.0-0.012) X10*3/uL Nucleated RBC % (auto) 0.0 (0.0-0.2) /100WBC Sodium 141 (135-145) mmol/L Potassium 4.2 (3.3-5.1) mmol/L Chloride 107 (96-108) mmol/L Carbon Dioxide 25 (22-29) mmol/L Anion Gap 13 (12-20) BUN 13 (9-16) mg/dL Creatinine 0.98 (0.5-1.4) mg/dL Estim Creat Clear Calc 121.7 Estimated GFR > 60 Random Glucose 157 H (60-115) mg/dL Calcium 9.4 (8.4-10.2) mg/dL Total Bilirubin 0.5 (0.0-1.0) mg/dL AST 30 (5-37) U/L ALT 43 H (0-40) U/L Alkaline Phosphatase 57 (39-117) U/L Total Protein 7.8 (6.5-8.0) g/dL Albumin 4.3 (3.5-5.0) g/dL Urine Color Yellow Urine Appearance Clear Urine pH 5.5 (5.0-9.0) Ur Specific [place] 1.010 (1.005-1.025) Urine Protein Negative (Neg-Trace) mg/dL Urine Glucose (UA) Negative (Negative) mg/dL Urine Ketones Negative (Negative) mg/dL Urine Blood Negative (Negative) Urine Nitrite Negative (Negative) Ur Leukocyte Esterase Negative (Negative) Independent Interpretation I performed an independent interpretation of an: CT Scan Interpretation: My interpretation is in agreement with the radiologist's impression of this imaging study. - EXAMINATION: CT ABDOMEN AND PELVIS WITH CONTRAST CLINICAL INFORMATION: Abdominal pain. Feels as though something has popped. COMPARISON: CT abdomen pelvis 04/18/2022 TECHNIQUE: Multidetector volumetric images were obtained from the superior aspect of the liver through the pubic symphysis following administration 85 mL of Omnipaque 350 intravenous contrast. Sagittal and coronal reformatted images were obtained on the technologist's workstation. Oral contrast: No This CT examination was performed using dose optimization techniques as appropriate, variously including the following: *Automated exposure control *Adjustment of mA and/or kV according to patient size (this includes techniques or standardized protocols for targeted exams where dose is matched to indication/reason for exam; i.e. extremities or head) *Use of iterative reconstruction technique DLP: 763 mGy-cm FINDINGS: LUNG BASES: The visualized lung bases are unremarkable. LIVER, GALLBLADDER, AND BILIARY TREE: The liver is mildly enlarged at 18 cm in cephalocaudad dimension. Attenuation is decreased suggesting hepatic steatosis. No focal hepatic lesion or biliary ductal dilatation is present. The gallbladder is unremarkable with no evidence of radiopaque gallstones, gallbladder wall thickening, or obvious pericholecystic inflammatory changes. PANCREAS: Unremarkable. SPLEEN: Spleen is mildly enlarged at 12.8 cm in cephalocaudad dimension. ADRENAL GLANDS: Unremarkable. KIDNEYS AND URETERS: The kidneys are normal in size, shape, and attenuation. No hydronephrosis, hydroureter, or calculi seen. No perinephric stranding. BLADDER: The bladder wall is symmetrically thickened. GASTROINTESTINAL TRACT: Interval sigmoid resection since the prior study no evidence of diverticulitis at this time. The small and large bowel are unremarkable. The appendix is unremarkable. ABDOMINAL WALL: There is a hernia through the rectus muscle on the left containing only fat, new when compared to the prior study the fascial defect measures 3.5 x 5.3 cm. A small periumbilical hernia seen containing only fat (6:76). There is a small midline epigastric hernia seen containing only fat again (6:76). Since the prior study, the patient has undergone partial sigmoid resection and I assume there is no herniation of the left rectus muscle is probably at an incision site. LYMPH NODES: No retroperitoneal lymphadenopathy. VASCULAR: Unremarkable. PELVIC VISCERA: The prostate and seminal vesicles are unremarkable. OSSEOUS STRUCTURES: Unremarkable. CT/CT abdomen pelvis w IV con IMPRESSION: 1. New left rectus muscle hernia containing only fat which is most likely the cause of the patient's abdominal pain related to the feeling that something popped. 2. Incidental note made of mildly enlarged fatty liver, mild splenomegaly, symmetric bladder wall thickening and interval sigmoid resection. 3. Small periumbilical and epigastric hernias containing only fat. Fleischner guidelines were followed. Dictated By: Colin Vogt MD Signed By: Electronically signed by Colin Vogt MD 01/20/24 1031 Radiology Impression Discussion of test interpretation with radiology: I have reviewed the radiologist's reading. Discharge Plan Discharge Clinical Impression: Hernia Patient Disposition: Home, Self-Care Instructions: Incisional Hernia (DC) Additional Instructions: Follow up with your primary care provider and a general surgeon. Return to the emergency department immediately if your symptoms worsen or if you develop any dizziness, shortness of breath, difficulty breathing, chest pain, blurry vision, loss of vision, nausea, vomiting, abdominal pain, fever, chills, back pain, or any other complaints. Prescriptions: No Action Citrucel 500 mg tablet 500 mg PO TID Qty: 90 5RF rosuvastatin 20 mg tablet 20 mg PO DAILY Qty: 30 3RF Referrals: [facility] [place] General Surgeons [Provider Group] (Call to establish and follow up with a general surgeon.) Marcelina Becerra MD [Primary Care Provider] - Stand Alone Forms: Work/School Release Discharge Date/Time: 01/20/24 11:02 Print Language: Maltese
[2024-01-20 08:33] VITALS: BP 138/88; PULSE 81; RESP 16; TEMP 36.6; O2SAT 96
[2024-01-20 08:44] LABS: MANUAL DIFF FLAG NO
[2024-01-20 08:45] LABS: Basophils Percent Auto 0.5 % (0-2); Eosinophils Percent Auto 0.2 % (0-4); Hematocrit 41.6 % (42.0-52.0); Hemoglobin 14.1 g/dl (14.0-18.0); Imm Gran Abs Auto 0.04 X10*3/uL (0.00-0.03); Imm Gran Pct Auto 0.5 % (0.0-0.4); Lymphocytes Absolute Auto 1.7 X10*3/uL (1.2-4.9); Lymphocytes Percent Auto 20.3 % (20-40); Mean Corpuscular HGB Conc 33.9 g/dl (31.0-36.0); Mean Corpuscular Volume 85.4 fL (80.0-98.0); Monocytes Absolute Auto 0.3 X10*3/uL (0.1-1.2); Neutrophils Absolute Auto 6.5 x10*3/uL (2.0-8.3); Neutrophils Percent Auto 75.5 % (45-73); Platelet Count 292 X10*3/uL (160-400); Red Blood Count 4.87 X10*6/uL (4.60-5.80); Red Cell Distribution Width 13.3 % (11.0-16.0); White Blood Count 8.5 X10*3/uL (4.8-10.8)
[2024-01-20 08:47] LABS: Appearance Urine Clear; Color Urine Yellow; Glucose Urine UA Negative (Negative); Leukocyte Esterase Urine Negative (Negative); Nitrite Urine Negative (Negative); PH 5.5 (5.0-9.0); Urine Blood Negative (Negative); Urine Ketones Negative (Negative); Urine Protein Negative (Neg-Trace)
[2024-01-20 08:59] LABS: Alanine Aminotransferase 43 U/L (0-40); Albumin Level 4.3 g/dL (3.5-5.0); Alkaline Phosphatase 57 U/L (39-117); Anion Gap 13 (12-20); Aspartate Amino Transferase 30 U/L (5-37); Bilirubin Total 0.5 mg/dL (0.0-1.0); Blood Urea Nitrogen 13 mg/dL (9-16); Calcium 9.4 mg/dL (8.4-10.2); Carbon Dioxide 25 mmol/L (22-29); Chloride 107 mmol/L (96-108); Creatinine Clr Calc Pharmacy 121.7; Estimated Glomerular Filt Rate > 60; Glucose Random 157 mg/dL (60-115); Potassium 4.2 mmol/L (3.3-5.1); Sodium 141 mmol/L (135-145); Total Protein 7.8 g/dL (6.5-8.0)
[2024-01-20] MEDS: iohexoL 350 MG/ML 100 ML INFUS..BTL IV (09:26)
[2024-01-20 11:01] VITALS: BP 137/88; PULSE 81; RESP 16; TEMP 36.9; O2SAT 97
== END 2024-01-20 11:02 | disposition home or self-care (01) ==
PROVIDERS: Physician Assistant Medical; Emergency Provider Student in an Organized Health Care Education/Training Program; PCP Family Medicine
DX: K46.9 Unspecified abdominal hernia without obstruction or gangrene (principal); R05.9 Cough, unspecified; Z79.899 Other long term (current) drug therapy
CPT/HCPCS: 36415; 74177; 80053; 81003; 85025; 99284; Q9967

== ENCOUNTER 2024-06-27 23:10 | Emergency (ER) | payer OTHER, SELFPAY ==
--- NOTE | 2024-06-27 | ECG_ITS ---
Test Reason : CHEST PAIN Blood Pressure : / mmHG Vent. Rate : 082 BPM Atrial Rate : 082 BPM P-R Int : 152 ms QRS Dur : 108 ms QT Int : 378 ms P-R-T Axes : 054 -43 032 degrees QTc Int : 441 ms Normal sinus rhythm Left axis deviation Abnormal ECG When compared with ECG of 14-OCT-2021 02:23, Incomplete right bundle branch block is no longer Present Referred By: Generic ED Physician Electronically Signed By:GAYE MUNOZ
--- NOTE | ~2024-06-27 | XR_ITS ---
EXAMINATION: XR CHEST CLINICAL INFORMATION: Chest pain COMPARISON: 10/06/2021 TECHNIQUE: 2 views of the chest were obtained. FINDINGS: No significant abnormality is noted involving the heart, lungs, mediastinum, bony thorax or soft tissues. XR/XR chest 2V IMPRESSION: Unremarkable examination.
[2024-06-27 23:27] VITALS: BP 164/100; PULSE 79; RESP 18; TEMP 36.7; O2SAT 96; BMI 42.9
[2024-06-27 23:49] LABS: Hemoglobin 13.9 g/dl (14.0-18.0); Mean Corpuscular HGB Conc 34.8 g/dl (31.0-36.0); Mean Corpuscular Hemoglobin 29.1 pg (27.0-33.0); Mean Corpuscular Volume 83.7 fL (80.0-98.0); Mean Platelet Volume 8.8 fL (9.4-12.4); Platelet Count 324 X10*3/uL (160-400); Red Blood Count 4.78 X10*6/uL (4.60-5.80); Red Cell Distribution Width 13.1 % (11.0-16.0); White Blood Count 10.3 X10*3/uL (4.8-10.8)
[2024-06-28 00:02] LABS: Alanine Aminotransferase 80 U/L (0-40); Albumin Level 4.5 g/dL (3.5-5.0); Alkaline Phosphatase 71 U/L (39-117); Anion Gap 11 (12-20); Aspartate Amino Transferase 42 U/L (5-37); Bilirubin Total 0.4 mg/dL (0.0-1.0); Blood Urea Nitrogen 10 mg/dL (9-16); Calcium 9.5 mg/dL (8.4-10.2); Carbon Dioxide 27 mmol/L (22-29); Chloride 104 mmol/L (96-108); Estimated Glomerular Filt Rate > 60; Glucose Random 155 mg/dL (60-115); Potassium 3.8 mmol/L (3.3-5.1); Prothrombin Time 12.2 SEC (11.1-13.3); Sodium 138 mmol/L (135-145); Total Protein 7.7 g/dL (6.5-8.0)
[2024-06-28 00:08] LABS: Troponin-I High Sensitivity < 2.7 ng/L (<3.5-35.0)
[2024-06-28 00:10] VITALS: BP 162/103; PULSE 85; RESP 18; TEMP 36.9; O2SAT 97
--- NOTE | 2024-06-28 00:43 | ED_ITS ---
HPI - Chest Pain General Chief Complaint: Chest Pain Stated Complaint: Chest Pains Time Seen by Provider: 06/28/24 00:32 Source: patient Mode of arrival: ambulatory Limitations: no limitations History of Present Illness ED Provider: DR. Roberts HPI narrative: 39-year-old male history of anxiety, GERD on prescribed Ativan p.r.n. for anxiety came in for evaluation of chest pain that started at 19:00 last night as a sudden left-sided chest pain localized to the left chest that was constant for 1 hour, patient stated that chest pain triggered his anxiety and he became sweaty, breathing fast, had stiffness in both hands and feet patient took 1 mg of Ativan that helped his symptoms. No recent travel, no lower extremity swelling, no lower extremity tenderness, no history smoking. Patient had similar presentation in the past and was attributed to anxiety. Related Data Previous Rx's ?Medication ?Instructions ?Recorded rosuvastatin 20 mg tablet 20 mg PO DAILY #30 tabs 12/24/22 methylcellulose (laxative) 500 mg 500 mg PO TID #90 tabs 12/30/22 tablet (Citrucel) Allergies Allergy/AdvReac Type Severity Reaction Status Date / Time No Known Allergies Allergy Verified 06/27/24 23:30 [No Known Allergies*] Review of Systems 2 Review of Systems: All other systems are reviewed and are negative Constitutional: Reports as per HPI and Reports no additional constitutional complaints Eyes: Reports as per HPI and Reports no additional eye complaints Reports system reviewed and no additional complaints, except as documented Cardiovascular: Reports as per HPI and Reports no additional cardiovascular complaints Respiratory: Reports as per HPI and Reports no additional respiratory complaints Gastrointestinal: Reports as per HPI and Reports no additional gastrointestinal complaints Genitourinary: Reports no additional female genitourinary complaints Musculoskeletal: Reports no additional musculoskeletal complaints Skin/Breast: Reports system reviewed and no additional complaints, except as docu Psychiatric: Reports no additional psychiatric complaints Endocrine: Reports no additional endocrine complaints Hematologic/Lymphatic: Reports no additional hematologic/lymphatic complaints Allergic/Immunologic: Reports no additional allergic/immunologic complaints Reports system reviewed and no additional complaints, except as documented and Reports Abnormal speech present [facility] Past Medical History Medical History Chest pain Hospital discharge follow-up Acute diverticulitis Abdominal pain Morbid obesity due to excess calories Establishing care with new doctor, encounter for Sleep apnea IBS (irritable bowel syndrome) Anxiety GERD (gastroesophageal reflux disease) Surgical History History of colostomy reversal Hx of colectomy Hx of colonoscopy History of medial meniscus repair of left knee History of tonsillectomy and adenoidectomy Family History Family History Father History of heart disease Mother History of lung cancer Hx of breast cancer History of skin cancer Social History Social History Household Members: Family Household Members Other:: 2 kids Housing: House Are you a primary career resource technician to a significant other at home: No Do you presently have visiting nurse or other home services: No Alcohol intake: current Alcohol intake frequency: a few times a month Patient Tobacco Use Status: Never used Tobacco Smoked in Last 30 Days: No Use of substances other than those prescribed or required for medical reasons: No Advance Directives: No Advance Directives Information Provided: Yes Do you have a plan to hurt others: No Plan service: Yes Current occupational status: employed Current occupation: [employer]- Physical Exam 2 Vital Signs: Vital Signs: Last Vital Signs Temp 98.2 F 06/28/24 04:20 Pulse 64 06/28/24 04:20 Resp 17 06/28/24 04:20 BP 148/92 H 06/28/24 04:20 Pulse Ox 97 06/28/24 04:20 O2 Del Method Room Air 06/28/24 00:10 BMI result Body Mass Index 42.9 Vital signs have been reviewed and appear to be correct. Blood pressure elevated. Heart rate normal. Respiratory rate normal. Temperature normal. Oxygen saturation normal. Appearance: Anxious, Alert. Oriented X3. No acute distress. Head: Normal external exam. Normocephalic. Atraumatic. No Juarez signs noted. No raccoon eyes noted Eyes: PERRLA. EOMI. Conjunctiva and sclera normal. Eyelids normal. ENT: TM's Normal. Pharynx normal. Uvula midline. Moist mucous membranes. No trismus noted. No drooling noted. No muffled voice noted. Neck: Normal inspection. Neck supple. FROM. No adenopathy. Thyroid Normal. No meningeal signs. No neck mass noted. CVS: Normal heart rate and rhythm. Heart sound normal. No murmurs noted. Pulses normal throughout. Respiratory: No respiratory distress. Painless inspiration. Breath sounds normal. No wheezes/rales/rhonchi noted. Chest nontender. No accessory muscle usage noted or decreased air movement noted. Abdomen: Soft and nontender. Bowel sounds normal in all 4 quadrants. No distention noted. No organomegaly noted. No visible injury noted. Back: No CVA tenderness. Full range of motion noted. Skin: Skin warm and dry. Normal skin color. Normal skin turgor. No rashes/lesions/lacerations noted. Extremities: No lower extremity edema. Extremities exhibit normal range of motion. Extremities nontender. Neuro: Oriented X 3. Cranial nerve exam: II-XII are grossly intact No motor deficit. No sensory deficit. Reflexes normal. Course Reevaluation(s) Reevaluation #1: 39-year-old history of anxiety presented with chest pain that triggered his anxiety symptoms symptoms improved after self administering prescribed Ativan. Patient has no risk for pulmonary embolism, stable vital signs, with normal O2 said, unremarkable chest x-ray. Reassure and discharge. Time: 04:33 Medical Decision Making Differential Diagnosis Differential Diagnoses: The differential diagnosis associated with the presentation includes (Acute anxiety, gastritis, GERD, ACS, pneumonia, pneumothorax, pleural effusion, electrolyte derangement, severe anemia, pulmonary embolism.) Admission/Observation Consideration of admission/observation: Escalation of care including admission/observation considered Lab Data MDM Lab Attestation statement: I reviewed the patient's lab results. 06/27/24 23:44 06/27/24 23:44 Labs: Lab Results 06/27/24 06/28/24 Range/Units 23:44 02:53 WBC 10.3 (4.8-10.8) X10*3/uL RBC 4.78 (4.60-5.80) X10*6/uL Hgb 13.9 L (14.0-18.0) g/dl Hct 40.0 L (42.0-52.0) % MCV 83.7 (80.0-98.0) fL MCH 29.1 (27.0-33.0) pg MCHC 34.8 (31.0-36.0) g/dl RDW 13.1 (11.0-16.0) % Plt Count 324 (160-400) X10*3/uL MPV 8.8 L (9.4-12.4) fL Absolute Nucleated RBC 0.000 (0.0-0.012) X10*3/uL Nucleated RBC % (auto) 0.0 (0.0-0.2) /100WBC PT 12.2 (11.1-13.3) SEC INR 1.0 (0.9-1.1) Sodium 138 (135-145) mmol/L Potassium 3.8 (3.3-5.1) mmol/L Chloride 104 (96-108) mmol/L Carbon Dioxide 27 (22-29) mmol/L Anion Gap 11 L (12-20) BUN 10 (9-16) mg/dL Creatinine 1.00 (0.5-1.4) mg/dL Estim Creat Clear Calc 119.0 Estimated GFR > 60 Random Glucose 155 H (60-115) mg/dL Calcium 9.5 (8.4-10.2) mg/dL Total Bilirubin 0.4 (0.0-1.0) mg/dL AST 42 H (5-37) U/L ALT 80 H (0-40) U/L Alkaline Phosphatase 71 (39-117) U/L Troponin I High Sens < 2.7 < 2.7 (<3.5-35.0) ng/L Total Protein 7.7 (6.5-8.0) g/dL Albumin 4.5 (3.5-5.0) g/dL Independent Interpretation I performed an independent interpretation of an: EKG (Normal sinus rhythm at 82 beats per minutes, left axis deviation, normal intervals, no ST-T changes.) and Plain X-Ray (Chest: No acute intrathoracic pathology.) Radiology Impression Discussion of test interpretation with radiology: I have reviewed the radiologist's reading. Chronic Conditions Patient?s care impacted by: Other (Anxiety) Discharge Plan Discharge Clinical Impression: Anxiety, generalized, Atypical chest pain Patient Disposition: Home, Self-Care Instructions: Anxiety (ED) Prescriptions: No Action Citrucel 500 mg tablet 500 mg PO TID Qty: 90 5RF rosuvastatin 20 mg tablet 20 mg PO DAILY Qty: 30 3RF Print Language: Turkish
[2024-06-28 03:34] LABS: Troponin-I High Sensitivity < 2.7 ng/L (<3.5-35.0)
[2024-06-28 04:20] VITALS: BP 148/92; PULSE 64; RESP 17; TEMP 36.8; O2SAT 97
[2024-06-28 04:36] VITALS: BP 148/92; PULSE 64; RESP 17; TEMP 36.8; O2SAT 97
== END 2024-06-28 04:43 | disposition home or self-care (01) ==
PROVIDERS: Emergency Provider Emergency Medicine
DX: R07.89 Other chest pain (principal); F41.9 Anxiety disorder, unspecified; Z79.899 Other long term (current) drug therapy
CPT/HCPCS: 36415; 71046; 80053; 84484; 85027; 85610; 93005; 99283; 99285

== ENCOUNTER → 2024-06-27 23:12 | Outpatient (BNV) | payer OTHER, SELFPAY | PROVIDERS: Emergency Provider Emergency Medicine; Visit Provider Internal Medicine | DX: R07.9 Chest pain, unspecified (principal); R94.31 Abnormal electrocardiogram [ECG] [EKG] | CPT/HCPCS: 93010 ==

== ENCOUNTER 2024-08-17 17:53 | Emergency (ER) | payer OTHER, SELFPAY ==
[2024-08-17 17:55] VITALS: BP 177/102; PULSE 103; RESP 20; TEMP 36.5; O2SAT 100; BMI 42.4
--- NOTE | 2024-08-17 17:57 | ED_ITS ---
HPI - General Adult General Chief complaint: Recheck/Abnormal Lab/Rx Stated complaint: poc 458 Time Seen by Provider: 08/17/24 21:01 Source: patient Mode of arrival: ambulatory Limitations: no limitations History of Present Illness ED Provider: Dr. Roselyn Castillo HPI narrative: Patient comes to the emergency room complaining of polyuria and polydipsia that started approximately 2-3 days ago, and today had blurred vision bilaterally. 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 Patient borrowed his father's glucometer and checked his blood glucose which was 458. Patient states that to his knowledge he has never had issues with diabetes. Patient denies abdominal pain, chest pain or shortness of breath, no dysuria or hematuria. Related Data Previous Rx's ?Medication ?Instructions ?Recorded rosuvastatin 20 mg tablet 20 mg PO DAILY #30 tabs 12/24/22 methylcellulose (laxative) 500 mg 500 mg PO TID #90 tabs 12/30/22 tablet (Citrucel) metformin 500 mg tablet,extended 1,000 mg (2 x 500 mg) PO DAILY 30 08/17/24 release 24hr (osmotic) days #60 tabs Allergies Allergy/AdvReac Type Severity Reaction Status Date / Time No Known Allergies Allergy Verified 08/17/24 17:56 [No Known Allergies*] Review of Systems 2 Review of Systems: Constitutional : No Weight loss, No Fever, No Chills, No Night Sweats, No Fatigue, No Malaise ENT/Mouth : No Hearing loss, No Ear Pain, No Nasal Congestion, No Sinus Pain, No Hoarseness, No sore throat, No Rhinorrhea, No Swallowing Difficulty Eyes: No Eye Pain, No Swelling, No Redness, No Foreign Body, No Discharge, No Vision Changes Cardiovascular : No Chest Pain, No SOB, No Dyspnea on Exertion, No Orthopnea, No Edema, No Palpitations Respiratory : No Cough, No Sputum, No Wheezing, No Smoke Exposure, No Dyspnea Gastrointestinal : No Nausea, No Vomiting, No Diarrhea, No Constipation, No abdominal Pain, No Hematochezia, No Melena Genitourinary : no irregular bleeding, No Dysuria, No Urinary Frequency, No Hematuria, No Urinary Incontinence, No Urgency, No Flank Pain, No Urinary Flow Changes, No Hesitancy Musculoskeletal : No joint pain, No Myalgias, No Joint Swelling Skin : No Skin Lesions, No rash Neuro : No Weakness, No Numbness, No Paresthesias, No Loss of Consciousness, No Dizziness, No Headache Psych : No Anxiety/Panic, No Depression, No SI/HI/AH/VH, No Social Issues, Heme/Lymph: No Bruising, No Bleeding,No Lymphadenopathy Endocrine : Complaining of polyuria and polydipsia, high blood sugar at home with glucometer, No Temperature Intolerance PMFSH Past Medical History Medical History Chest pain Hospital discharge follow-up Acute diverticulitis Abdominal pain Morbid obesity due to excess calories Establishing care with new doctor, encounter for Sleep apnea IBS (irritable bowel syndrome) Anxiety GERD (gastroesophageal reflux disease) Surgical History History of colostomy reversal Hx of colectomy Hx of colonoscopy History of medial meniscus repair of left knee History of tonsillectomy and adenoidectomy Family History Family History Father History of heart disease Mother History of lung cancer Hx of breast cancer History of skin cancer Social History Social History Household Members: Family Household Members Other:: 2 kids Housing: House Are you a primary health care facilities inspector to a significant other at home: No Do you presently have visiting nurse or other home services: No Alcohol intake: current Alcohol intake frequency: holidays/special occasions only Patient Tobacco Use Status: Never used Tobacco Smoked in Last 30 Days: No Use of substances other than those prescribed or required for medical reasons: No Advance Directives: No Advance Directives Information Provided: No service: Yes Current occupational status: employed Current occupation: [employer]- Physical Exam ED Vital Signs: Vital Signs - 24 hr 08/17/24 17:55 08/17/24 20:05 08/17/24 22:13 Temperature 97.7 F 97.7 F 97.1 F Pulse Rate 103 H 87 76 Respiratory Rate 20 16 16 Blood Pressure 177/102 H 129/89 140/85 H Pulse Oximetry 100 98 98 Oxygen Delivery Method Room Air Room Air Room Air BMI result Body Mass Index 42.4 Const Other: Appearance: Alert. Oriented X3. No acute distress. Eyes: Pupils equal, round and reactive to light. ENT: Pharynx normal. Neck: Normal inspection. Neck supple. No lymph nodes noted. No crepitus CVS: Normal heart rate and rhythm. Pulses normal. Normal S1 and S2 Respiratory: No respiratory distress. Breath sounds normal. No Wheezing. No rales Abdomen: Soft and nontender. No rigidity. No distention. Skin: Skin warm and dry. Normal skin color. Normal skin turgor. Extremities: No lower extremity edema. No Lacerations. No Rash Neuro: Oriented X 3. No motor deficit. No sensory deficit. Moving all extremities. No slurred speech. CN 2 through 12 grossly intact Psych: calm, cooperative, normal affect Course Course Course Narrative: RME, this is a rapid medical exam performed by Eric Watts please refer to primary provider for complete H&P- 39-year-old male who denies any history of diabetes presents for evaluation of elevated blood sugar. The patient has not felt well today and had increased urination and increased thirst. He checked his glucose with his father's glucometer and it was reportedly 458. Plan for plan of care glucose, labs including VBG and beta hydroxybutyrate. Medications Administered Discontinued Medications Generic Name Dose Route Start Last Admin Trade Name Freq PRN Reason Stop Dose Admin Sodium Chloride 1,000 mls @ 999 mls/hr 08/17/24 21:10 08/17/24 22:10 Ns IVCONT 08/17/24 22:10 999 mls/hr .Q1H1M ONE Administration Insulin Human Regular 5 unit 08/17/24 21:10 08/17/24 22:11 Insulin Regular, Human 100 Unit/Ml 10 Ml Vial IVPUSH 08/17/24 21:11 5 unit ONCE ONE Administration Medical Decision Making Medical Decision Making [facility] Narrative: Patient receiving IV fluids, 5 units of insulin -discussed with the patient that he will be discharged home with metformin and he will need close follow-up with his PCP. Also, discussed with the patient about the life modifications diet/exercise that he will have to do. Patient agrees with plan. After IV fluids and 5 units of insulin, patient's glucose improved to 271, patient asymptomatic Differential Diagnosis Differential Diagnoses: The differential diagnosis associated with the presentation includes Admission/Observation Consideration of admission/observation: Escalation of care including admission/observation considered (Given patient's new onset diabetes, observation was considered) Lab Data MDM Lab Attestation statement: I reviewed the patient's lab results. 08/17/24 18:08 08/17/24 18:08 Labs: Lab Results 08/17/24 08/17/24 08/17/24 Range/Units 18:01 18:08 18:15 WBC 9.9 (4.8-10.8) X10*3/uL RBC 4.89 (4.60-5.80) X10*6/uL Hgb 14.4 (14.0-18.0) g/dl Hct 40.2 L (42.0-52.0) % MCV 82.2 (80.0-98.0) fL MCH 29.4 (27.0-33.0) pg MCHC 35.8 (31.0-36.0) g/dl RDW 12.6 (11.0-16.0) % Plt Count 336 (160-400) X10*3/uL MPV 9.5 (9.4-12.4) fL Immature Gran % (Auto) 0.3 (0.0-0.4) % Neut % (Auto) 54.4 (45-73) % Lymph % (Auto) 36.4 (20-40) % Glenn % (Auto) 6.2 (2-11) % Eos % (Auto) 1.8 (0-4) % Baso % (Auto) 0.9 (0-2) % Lymph # (Auto) 3.6 (1.2-4.9) X10*3/uL Glenn # (Auto) 0.6 (0.1-1.2) X10*3/uL Eos # (Auto) 0.2 (0.0-0.4) X10*3/uL Baso # (Auto) 0.1 (0.0-0.2) X10*3/uL Abs Immat Gran (auto) 0.03 (0.00-0.03) X10*3/uL Absolute Neuts (auto) 5.4 (2.0-8.3) x10*3/uL Absolute Nucleated RBC 0.000 (0.0-0.012) X10*3/uL Nucleated RBC % (auto) 0.0 (0.0-0.2) /100WBC VBG pH 7.45 H (7.32-7.43) VBG pCO2 34 mmHg VBG pO2 56 mmHg VBG HCO3 24 (22-26) mmol/L VBG O2 Saturation 87.0 % VBG Base Excess 1.3 mmol/L Sodium 136 (135-145) mmol/L Potassium 3.9 (3.3-5.1) mmol/L Chloride 100 (96-108) mmol/L Carbon Dioxide 23 (22-29) mmol/L Anion Gap 17 (12-20) BUN 14 (9-16) mg/dL Creatinine 1.27 (0.5-1.4) mg/dL Estim Creat Clear Calc 93.0 Estimated GFR > 60 POC Glucose 427 H* (60-115) mg/dL Random Glucose 439 H* (60-115) mg/dL Calcium 9.8 (8.4-10.2) mg/dL Total Bilirubin 0.4 (0.0-1.0) mg/dL AST 18 (5-37) U/L ALT 40 (0-40) U/L Alkaline Phosphatase 97 (39-117) U/L Total Protein 8.2 H (6.5-8.0) g/dL Albumin 4.4 (3.5-5.0) g/dL Lipase 33 (8-78) U/L Beta-Hydroxybutyrate 0.11 (0.02-0.27) mmol/L Urine Color Yellow Urine Appearance Clear Urine pH 5.5 (5.0-9.0) Ur Specific [place] >= 1.030 H (1.005-1.025) Urine Protein Negative (Neg-Trace) mg/dL Urine Glucose (UA) >=1000 H (Negative) mg/dL Urine Ketones Negative (Negative) mg/dL Urine Blood Negative (Negative) Urine Nitrite Negative (Negative) Ur Leukocyte Esterase Negative (Negative) Urine RBC 0-2 (0-2) /HPF Urine WBC 0-5 (0-5) /HPF Ur Squamous Epith Cells 0-2 (0-2) /HPF Urine Bacteria None Seen (None Seen) Hyaline Casts 0-2 (0-2) /LPF 08/17/24 08/17/24 Range/Units 20:02 22:29 WBC (4.8-10.8) X10*3/uL RBC (4.60-5.80) X10*6/uL Hgb (14.0-18.0) g/dl Hct (42.0-52.0) % MCV (80.0-98.0) fL MCH (27.0-33.0) pg MCHC (31.0-36.0) g/dl RDW (11.0-16.0) % Plt Count (160-400) X10*3/uL MPV (9.4-12.4) fL Immature Gran % (Auto) (0.0-0.4) % Neut % (Auto) (45-73) % Lymph % (Auto) (20-40) % Glenn % (Auto) (2-11) % Eos % (Auto) (0-4) % Baso % (Auto) (0-2) % Lymph # (Auto) (1.2-4.9) X10*3/uL Glenn # (Auto) (0.1-1.2) X10*3/uL Eos # (Auto) (0.0-0.4) X10*3/uL Baso # (Auto) (0.0-0.2) X10*3/uL Abs Immat Gran (auto) (0.00-0.03) X10*3/uL Absolute Neuts (auto) (2.0-8.3) x10*3/uL Absolute Nucleated RBC (0.0-0.012) X10*3/uL Nucleated RBC % (auto) (0.0-0.2) /100WBC VBG pH (7.32-7.43) VBG pCO2 mmHg VBG pO2 mmHg VBG HCO3 (22-26) mmol/L VBG O2 Saturation % VBG Base Excess mmol/L Sodium (135-145) mmol/L Potassium (3.3-5.1) mmol/L Chloride (96-108) mmol/L Carbon Dioxide (22-29) mmol/L Anion Gap (12-20) BUN (9-16) mg/dL Creatinine (0.5-1.4) mg/dL Estim Creat Clear Calc Estimated GFR POC Glucose 357 H* 306 H (60-115) mg/dL Random Glucose (60-115) mg/dL Calcium (8.4-10.2) mg/dL Total Bilirubin (0.0-1.0) mg/dL AST (5-37) U/L ALT (0-40) U/L Alkaline Phosphatase (39-117) U/L Total Protein (6.5-8.0) g/dL Albumin (3.5-5.0) g/dL Lipase (8-78) U/L Beta-Hydroxybutyrate (0.02-0.27) mmol/L Urine Color Urine Appearance Urine pH (5.0-9.0) Ur Specific [place] (1.005-1.025) Urine Protein (Neg-Trace) mg/dL Urine Glucose (UA) (Negative) mg/dL Urine Ketones (Negative) mg/dL Urine Blood (Negative) Urine Nitrite (Negative) Ur Leukocyte Esterase (Negative) Urine RBC (0-2) /HPF Urine WBC (0-5) /HPF Ur Squamous Epith Cells (0-2) /HPF Urine Bacteria (None Seen) Hyaline Casts (0-2) /LPF Critical Care Time Critical Care Time Critical Care Time: Yes Total Critical Care Time: 45 Attestation: I have personally provided critical care time. Time includes review of lab data, radiology results, discussion with consultants, and monitoring for potential decompensation. Intervention performed as documented. Discharge Plan Discharge Clinical Impression: Diabetes mellitus, new onset Patient Disposition: Home, Self-Care Instructions: Type 2 Diabetes in Adults: New Diagnosis (ED), Diabetes and Nutrition (ED), Diabetes and Exercise (ED) Additional Instructions: Please follow-up with your primary care physician tomorrow. If you have any worsening or new symptoms, please return to the emergency room or call 911 Prescriptions: New metformin 500 mg tablet extended release 24hr 1,000 mg PO DAILY 30 Days Qty: 60 1RF Rx Instructions: For the 1st week, take 1 tablet p.o. b.i.d. No Action Citrucel 500 mg tablet 500 mg PO TID Qty: 90 5RF rosuvastatin 20 mg tablet 20 mg PO DAILY Qty: 30 3RF Print Language: Japanese
[2024-08-17 18:06] LABS: Glucose, Whole Blood 427 mg/dL (60-115)
[2024-08-17 18:15] LABS: MANUAL DIFF FLAG NO
[2024-08-17 18:18] LABS: Venous Blood Gas Refer to POC result
[2024-08-17 18:19] LABS: VBG Base Excess 1.3 mmol/L; VBG HCO3 24 mmol/L (22-26); VBG pCO2 34 mmHg; VBG pH 7.45 (7.32-7.43); VBG pO2 56 mmHg
[2024-08-17 18:20] LABS: Appearance Urine Clear; Color Urine Yellow; Glucose Urine UA >=1000 mg/dL (Negative); Leukocyte Esterase Urine Negative (Negative); Nitrite Urine Negative (Negative); PH 5.5 (5.0-9.0); Specific Gravity - Urine >= 1.030 (1.005-1.025); UMIC TRIGGER UACC YES; Urine Blood Negative (Negative); Urine Ketones Negative (Negative); Urine Protein Negative (Neg-Trace)
[2024-08-17 18:21] LABS: Basophils Absolute Auto 0.1 X10*3/uL (0.0-0.2); Basophils Percent Auto 0.9 % (0-2); Eosinophils Absolute Auto 0.2 X10*3/uL (0.0-0.4); Eosinophils Percent Auto 1.8 % (0-4); Hematocrit 40.2 % (42.0-52.0); Hemoglobin 14.4 g/dl (14.0-18.0); Imm Gran Abs Auto 0.03 X10*3/uL (0.00-0.03); Imm Gran Pct Auto 0.3 % (0.0-0.4); Lymphocytes Absolute Auto 3.6 X10*3/uL (1.2-4.9); Lymphocytes Percent Auto 36.4 % (20-40); Mean Corpuscular HGB Conc 35.8 g/dl (31.0-36.0); Mean Corpuscular Hemoglobin 29.4 pg (27.0-33.0); Mean Corpuscular Volume 82.2 fL (80.0-98.0); Mean Platelet Volume 9.5 fL (9.4-12.4); Monocytes Absolute Auto 0.6 X10*3/uL (0.1-1.2); Monocytes Percent Auto 6.2 % (2-11); Neutrophils Absolute Auto 5.4 x10*3/uL (2.0-8.3); Neutrophils Percent Auto 54.4 % (45-73); Platelet Count 336 X10*3/uL (160-400); Red Blood Count 4.89 X10*6/uL (4.60-5.80); Red Cell Distribution Width 12.6 % (11.0-16.0); White Blood Count 9.9 X10*3/uL (4.8-10.8)
[2024-08-17 18:23] LABS: Bacteria Urine None Seen (None Seen); Hyaline Casts Urine 0-2 /LPF (0-2); RBC Urine 0-2 /HPF (0-2); Squamous Epithelial Cell Urine 0-2 /HPF (0-2); WBC Urine 0-5 /HPF (0-5)
[2024-08-17 18:32] LABS: Beta-Hydroxybutyrate 0.11 mmol/L (0.02-0.27)
[2024-08-17 18:34] LABS: Alanine Aminotransferase 40 U/L (0-40); Albumin Level 4.4 g/dL (3.5-5.0); Alkaline Phosphatase 97 U/L (39-117); Anion Gap 17 (12-20); Aspartate Amino Transferase 18 U/L (5-37); Bilirubin Total 0.4 mg/dL (0.0-1.0); Blood Urea Nitrogen 14 mg/dL (9-16); Calcium 9.8 mg/dL (8.4-10.2); Carbon Dioxide 23 mmol/L (22-29); Chloride 100 mmol/L (96-108); Estimated Glomerular Filt Rate > 60; Glucose Random 439 mg/dL (60-115); Lipase 33 U/L (8-78); Potassium 3.9 mmol/L (3.3-5.1); Sodium 136 mmol/L (135-145); Total Protein 8.2 g/dL (6.5-8.0)
[2024-08-17 20:05] VITALS: BP 129/89; PULSE 87; RESP 16; TEMP 36.5; O2SAT 98
[2024-08-17 20:06] LABS: Glucose, Whole Blood 357 mg/dL (60-115)
--- NOTE | 2024-08-17 20:07 | MHC.EDTECH ---
This pct just assumed care of Patient ,vitals taken ,blood sugar check ,RN aware of result of 357 .
[2024-08-17] MEDS: 0.9 % Sodium Chloride 1,000 ML 999 ML IVCONT (22:10)
[2024-08-17] MEDS: Insulin Regular, Human 100 UNIT/ML 10 ML VIAL IVPUSH (22:11)
[2024-08-17 22:13] VITALS: BP 140/85; PULSE 76; RESP 16; TEMP 36.2; O2SAT 98
[2024-08-17 22:33] LABS: Glucose, Whole Blood 306 mg/dL (60-115)
[2024-08-17 22:53] LABS: Glucose, Whole Blood 271 mg/dL (60-115)
[2024-08-17 23:05] VITALS: BP 140/85; PULSE 76; RESP 16; TEMP 36.2; O2SAT 98
[2024-08-18 07:12] LABS: Estimated Average Glucose 186 mg/dL; Hemoglobin A1C 231.9082 umol/L; Hemoglobin A1c % 8.1 % (<6.0); Total Hemoglobin (HGBA1C) 3553.4602 umol/L
== END 2024-08-17 23:06 | disposition home or self-care (01) ==
PROVIDERS: Emergency Medicine; Physician Assistant; Emergency Provider Emergency Medicine; PCP Family Medicine
DX: E11.9 Type 2 diabetes mellitus without complications (principal); E78.5 Hyperlipidemia, unspecified; Z79.899 Other long term (current) drug therapy
CPT/HCPCS: 36415; 80053; 81001; 82010; 82803; 82947; 83036; 83690; 85025; 96361; 96374; 99284; 99285

== ENCOUNTER → 2024-11-08 15:38 | Outpatient (BNV) | payer OTHER, SELFPAY | PROVIDERS: Visit Provider Clinical Nurse Specialist Psychiatric/Mental Health | DX: F33.2 Major depressive disorder, recurrent severe without psychotic features (principal); F42.8 Other obsessive-compulsive disorder | CPT/HCPCS: 99205; 99417 ==

== ENCOUNTER → 2024-11-26 12:00 | Outpatient (BNV) | payer OTHER, SELFPAY | PROVIDERS: Visit Provider Psychiatry & Neurology Psychiatry | DX: F33.2 Major depressive disorder, recurrent severe without psychotic features (principal) | CPT/HCPCS: 90867; 90868 ==

== ENCOUNTER 2025-01-26 14:33 | Outpatient (AMB) | payer OTHER, SELFPAY ==
--- NOTE | 2025-01-26 14:35 | A.OFFVIS_ITS ---
Vital Signs 01/26/25 14:37 Height 5 ft 6 in Weight 255 lb 4.725 oz BMI 41.2 BP 124/68 Blood Pressure Location Rt brachial Position Sitting Pulse 78 Pulse Source Pulse Oximeter Pulse Oximetry (%) 97 Oxygen Delivery Method Room Air Intake Visit Reasons: Diverticulosis/[facility] PT Intake Note: ESTABLISHED PATIENT for mgmt of diverticulosis w/ associated pain. Pt last seen 2022 by ANDER. Chief Complaint; C/O constipation w/ signs of hemorrhoids (BRB per rectum upon wiping). Pt reports straining at stool. No additional sx reported. Pt also would like to inquire as to possible repeat colo. Pt reports that he was supposed to return for 1 year recall due to polyp but was never able to get his procedure scheduled. Polyp had been noted during procedure but was never biopsied. Sed High [employer] Teacher Required: No Accompanied by: Self / Same As Patient Allergies No Known Allergies [No Known Allergies*] Allergy (Verified 01/26/25 14:37) HPI HPI Diverticdarwin/Nick PT: Details: LAST VISIT WITH PRASANTH KIM 12/30/2022 HPI A 37 y/o male history of diverticulitis, known to us- with urge to have a BM- has to strain- the stool is hard-he thinks he needs fiber- he has difficulty maintain a high-fiber diet He had an issue- came to [facility]-04/18/22- had CT- discharged-after pain medication He had further sx- went to [facility] had another CT via ambulance- had perforated diverticulum- under went surgery- colostomy- and reversal in September-. He now feels well-aside from feeling somewhat constipated from time to time. He otherwise has a good appetite and feels Is back to work full-time Has no nausea, vomiting, abdominal pain, hematemesis, hematochezia fever to ASSESSMENT AND PLAN Very pleasant 37-year-old male with history of diverticulitis , perforated diverticulum, colostomy and colostomy reversal- follows up with mild constipation. He will maintain high-fiber diet, he will also give trial to [employer] , as this may supplement his diet. He is due for 1 year repeat colonoscopy due to adenoma and under retrieved polyp We discussed procedure, rare risks. Order has been placed We reviewed diverticulosis/diverticulitis ER protocol. He is encouraged to call with any questions or concerns. There are no major barriers to understanding identified TODAY'S VISIT Patient is here today for to reestablish care. Previously seen by Prasanth Kmi almost 2 years ago for diverticulosis. See above notes. Patient has a history of colon resection due to diverticulitis. Was supposed to repeat colonoscopy due to history of tubular adenoma as well as 1 unretrieved polyp. Patient denies any issues with anesthesia in the past. Reports that he has been having trouble moving his bowels. Currently not really taking anything except for occasional fiber. Patient denies any melena, occasional blood in his stool when straining, denies unintentional weight loss or ribbon like stools. Patient denies any dyspepsia, dysphagia or odynophagia. Denies any abdominal pain or discomfort, however reports occasional cramping in the left lower quadrant without radiation. Patient reports that this happens usually when he has to have a bowel movement.. Occasional abdominal bloating depending on what he eats. [facility] Medical History Chest pain Hospital discharge follow-up Acute diverticulitis Abdominal pain Morbid obesity due to excess calories Establishing care with new doctor, encounter for Sleep apnea IBS (irritable bowel syndrome) Anxiety GERD (gastroesophageal reflux disease) Surgical History History of colostomy reversal Hx of colectomy Hx of colonoscopy History of medial meniscus repair of left knee History of tonsillectomy and adenoidectomy Family History Father History of heart disease Mother History of lung cancer Hx of breast cancer History of skin cancer Social History Household Members: Family Household Members Other:: 2 kids Housing: House Are you a primary long term acute care registered nurse to a significant other at home: No Do you presently have visiting nurse or other home services: No Alcohol intake: current Alcohol intake frequency: holidays/special occasions only Patient Tobacco Use Status: Never used Tobacco service: Yes Current occupational status: employed Current occupation: [employer] Const Denies weight gain and Denies weight loss ENT Reports no additional complaints, Denies dysphagia and Denies odynophagia Card Reports no additional complaints Resp Reports no additional complaints GI Reports abdominal pain (Cramping, occasional), Denies belching, Denies melena, Reports bloating, Reports hematochezia (Occasional when straining), Denies change in bowel habits, Reports constipation, Denies dysphagia, Denies excessive flatus, Denies dyspepsia, Denies heartburn, Denies diarrhea, Denies loose stools, Denies nausea, Denies odynophagia and Denies vomiting Reports no additional complaints Musc Reports no additional complaints Neuro Reports no additional complaints Psych Reports no additional complaints Endo Reports no additional complaints Physical Exam Vital Signs: Last Vital Signs Pulse 78 01/26/25 14:37 BP 124/68 01/26/25 14:37 Pulse Ox 97 01/26/25 14:37 Oxygen Delivery Method Room Air 01/26/25 14:37 BMI result Body Mass Index 41.2 Const General: healthy appearing, no acute distress and well developed Nutritional Appearance: well nourished Orientation/consciousness: patient oriented x3 Resp Effort & Inspection: normal respiratory effort, able to speak in complete sentences, no tracheal deviation and symmetric chest movement Auscultation: clear to auscultation bilaterally Cardio Rate: regular rate GI Inspection: Yes normal to inspection and No distended Palpation (GI): Soft to palpation, not firm, nontender and No hepatosplenomegaly present Auscultation: normal bowel sounds General: Yes no CVA tenderness Back/Spine/Pelvis Back: no CVA tenderness Skin General skin exam: elasticity normal, turgor normal and dry skin Neuro General: patient oriented x3 Psych Appearance: grossly normal Mental Status: mental status grossly normal Assessment & Plan Assessment & Plan (1) Diverticulosis: Code(s): K57.90 - Diverticulosis of intestine, part unspecified, without perforation or abscess without bleeding Category: Medical (2) History of colostomy reversal: Code(s): Z98.890 - Other specified postprocedural states Category: Surgical Plan: 09/2022 Due for repeat colonoscopy due to history of adenomas and none retrieved polyp (3) History of diverticulitis of colon: Code(s): Z87.19 - Personal history of other diseases of the digestive system (4) Postprandial abdominal bloating: Code(s): R14.0 - Abdominal distension (gaseous) (5) Constipation: Code(s): K59.00 - Constipation, unspecified Qualifiers: Constipation type: slow transit constipation Qualified Code(s): K59.01 - Slow transit constipation Plan Patient is due to go for colonoscopy as in the past he had history of tubular adenoma as well as 1 of the polyps were not retrieved. Patient is not moving his bowels well, reports that he is taking [id number] fiber supplements. He can start taking senna. Patient reports that he is on pantoprazole and doing well. Takes it as needed. Will re-evaluate and if need might be sent for endoscopy pending symptoms. Discussed with patient avoiding dietary triggers and late night snacking. Staying upright for minimum 3 hours after meals discussed with patient. Increase fluid intake and activity to promote better bowel motility. Discussed with patient low FODMAP diet. List of food recommended as well as list of food to avoid given to patient. I will see him in 5 weeks, sooner on as needed basis. Patient will call our office if he will have any GI concerning symptoms. He is agreeable to this plan and verbalizes understanding of instructions. He was given the opportunity to ask questions and all questions answered. Thank you for allowing me to participate in his care Medications: New sennosides (Natural Senna Laxative) 17.2 mg (2 x 8.6 mg) PO BEDTIME 60 tabs 3RF constipation K59.00 - Constipation, unspecified Coding Level of Care Code Est Pt Level 4 (45502) Complex EM visit Add On G2211 Diagnoses Diverticulosis K57.90 History of colostomy reversal Z98.890 History of diverticulitis of colon Z87.19 Postprandial abdominal bloating R14.0 Slow transit constipation K59.01 Constipation type: slow transit constipation Time Spent (min) 40 Comment 25 minutes spent with patient and additional 15 minutes spent reviewing his records
[2025-01-26 14:37] VITALS: BP 124/68; PULSE 78; O2SAT 97; BMI 41.2
--- OUTSIDE RECORDS SUMMARY | 2025-01-26 17:11 | XMS_ITS | Clinical Summary ---
Author Organization [address] [place] [address] [place] [phone] Phone Care Team Providers Care Aluminizer Name Role Phone Unavailable Primary Care Provider Unavailabl e Allergies No known active allergies Medications amoxicillin-cla vulanate (AUGMENTIN) 875-125 mg per tablet Take 1 Tablet by mouth 2 Times Daily. 04/27/2022 Active neomycin (MYCIFRADIN) 500 mg tablet Take 2 Tablets by mouth 4 times daily. Take at 8 am, noon, 4 pm and 8 pm the day before surgery 08/28/2022 Active omeprazole (PriLOSEC) [address] capsule Take 40 mg by mouth every morning (before breakfast). Active Active Problems Problem Noted Date Diagnosed Date Abnormal LFTs 12/20/2020 Anxiety disorder 12/20/2020 Diverticulosis 12/20/2020 Overview (09/01/2024): 2014 diverticulitis with microperforation GERD (gastroesophageal reflux disease) Mixed hyperlipidemia 12/20/2020 OCD (obsessive compulsive disorder) 12/20/2020 PTSD (post-traumatic stress disorder) 12/20/2020 Vitamin D deficiency 12/20/2020 Surgical History Surgery Date Site/Laterality Comments COLONOSCOPY 2014 PROCEDURE: HISTORICAL COLONOSCOPY; COMMENT: several benign polyps KNEE SURGERY 2000 Left PROCEDURE: HISTORICAL KNEE SURGERY; COMMENT: arthroscopy- alledged meniscal tear OTHER SURGICAL HISTORY PROCEDURE: HISTORY OTHER; COMMENT: T & A Medical History Medical History Date Comments Abnormal LFTs 12/20/2020 DX:Abnormal LFTs Anxiety disorder 12/20/2020 DX:Anxiety diso rder Diverticulosis 12/20/2020 DX:Diverticulosi s; COMMENT: 2015 diverticulitis with microperforation GERD (gastroesophageal reflu x disease) 12/20/2020 DX:GERD (gastroesophageal re flux disease) Mixed hyperlipidemia 12/20/2020 DX:Mixed hy perlipidemia OCD (obsessive compulsive disorder) 12/20/2020 DX:OCD (obsessive compulsive disorder) PTSD (post-traumatic stress disorder) 12/20/2020 DX:PTSD (post-traumatic stress disorder) Vitamin D deficiency 12/20/2020 DX:Vitamin D deficiency Family History Medical History Relation Name Comments Bladder Cancer Brother Diabetes Father Breast cancer Mother in her early 4 0's Lung cancer Mother Relation Name Status Comments Brother Father Mother Social History Tobacco Use Types Packs/Day Years Used Date Smoking Tobacco: Never Assessed Sex and Gender Information Value Date Recorded Sex Assigned at Not on file Legal Sex Male 1:22 PM EST Gender Identity Not on file Sexual Orientation Not on file Obstetrics History Last Filed Vital Signs Vital Sign Reading Time Taken Comments Blood Pressure 144/93 05/24/2024 3:34 PM EDT Pulse 71 05/24/2024 3:34 PM EDT Temperature - - Respiratory Rate - - Oxygen Saturation - - Inhaled Oxygen Concentration - - Weight 122 kg (268 lb) 05/24/2024 3:34 PM EDT Height 167.6 cm (5' 6 ) 05/24/2024 3:34 PM EDT Body Mass Index 43.26 05/24/2024 3:34 PM EDT Plan of Treatment Health Maintenance Due Date Last Done Comments DTaP,Tdap,and Td Vaccines (1 - Tdap) 2002 Hepatitis B Vaccines (1 of 3 - 19+ 3-dose series) 2002 Cholesterol Screening (Lipid Panel) 10/26/2022 Depression Screening 10/26/2022 HIV Screening 10/26/2022 Hepatitis C Screening 10/26/2022 Social Influencers of Health Screening 10/26/2022 COVID-19 Vaccine (2023-2 5 season) 2024 Influenza Vaccine (#1) 2024 HIB Vaccines Aged Out No longer eligi ble based on patient's age to complete this topic HPV Vaccines Aged Out No longer eligi ble based on patient's age to complete this topic Hepatitis A Vaccines Aged Out No long er eligible based on patient's age to complete this topic IPV Vaccines Aged Out No longer eligi ble based on patient's age to complete this topic MMR Vaccines Aged Out No longer eligi ble based on patient's age to complete this topic Meningococcal ACWY Vaccine Aged Out N o longer eligible based on patient's age to complete this topic Meningococcal B Vacine Aged Out No lo nger eligible based on patient's age to complete this topic Pneumococcal Vaccine: Pediat rics (0 to 5 Years) and At-Risk Patients (6 to 64 Years) Aged Out No longer eligible b ased on patient's age to complete this topic RSV Immunization Patients Un godfrey 20 months Aged Out No longer eligible b ased on patient's age to complete this topic Varicella Vaccines Aged Out No longer eligible based on patient's age to complete this topic Insurance [address] [address]
== END 2025-01-26 15:07 | disposition home or self-care (01) ==
LOC: HO.HGI 14:33
PROVIDERS: Referring Provider Nurse Practitioner Family; Visit Provider Nurse Practitioner Family
DX: K57.90 Diverticulosis of intestine, part unspecified, without perforation or abscess without bleeding (principal); Z87.19 Personal history of other diseases of the digestive system; R14.0 Abdominal distension (gaseous); K59.01 Slow transit constipation
CPT/HCPCS: 99214; G2211

== ENCOUNTER → 2025-01-26 14:33 | Outpatient (BNVA) | payer OTHER, SELFPAY | PROVIDERS: Visit Provider Nurse Practitioner Family | DX: K57.90 Diverticulosis of intestine, part unspecified, without perforation or abscess without bleeding (principal); K59.01 Slow transit constipation; R14.0 Abdominal distension (gaseous); Z87.19 Personal history of other diseases of the digestive system; Z98.890 Other specified postprocedural states | CPT/HCPCS: 99212 ==

== ENCOUNTER 2025-01-31 12:00 | Outpatient (RCR) | payer OTHER, SELFPAY ==
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
--- NOTE | 2024-11-26 15:48 | HO.TMSDAILY2 ---
TMS Daily Progress Note Daily TMS Progress Note Date of Service: 11/22/24 Week #: 1 Treatment #(12-16): 1 PHQ-9 Pre-Treatment (-): 18 PHQ-9 Most Recent (12-13): 15 GRACY-7 Pre-Treatment (0-21): 21 GRACY-7 Most Recent (0-21): 21 Reviewed: TMS Mapping/Re-mapping completed Verification: I have reviewed the TMS Elementary Ell Teacher Note and agree with the contents. The patient remains a candidate to continue TMS treatment per protocol. Assessment and Plan (1) Major depressive disorder, recurrent severe without psychotic features: Status: Acute Plan initial mapping completed coil angle changed mt % 1.45 tolerated initial tx olga santamaria supervised mapping
--- NOTE | 2024-11-26 15:48 | HO.TMSDAILY2 ---
TMS Daily Progress Note Daily TMS Progress Note Date of Service: 11/23/24 Week #: 1 Treatment #(12-16): 2 PHQ-9 Pre-Treatment (12-13): 18 PHQ-9 Most Recent (12-13): 15 Reviewed: TMS Tech Note Reviewed Verification: I have reviewed the TMS Lens Molding Equipment Operator Note and agree with the contents. The patient remains a candidate to continue TMS treatment per protocol. Assessment and Plan (1) Major depressive disorder, recurrent severe without psychotic features: Status: Acute Plan Patient tolerating treatment he did note less anxiety after the 1st treatment pretreated with Motrin MT gradually increased
--- NOTE | 2024-11-26 15:48 | HO.TMSDAILY2 ---
TMS Daily Progress Note Daily TMS Progress Note Date of Service: 11/24/24 Week #: 1 Treatment #(12-16): 3 PHQ-9 Pre-Treatment (12-13): 18 PHQ-9 Most Recent (12-13): 15 Reviewed: TMS Tech Note Reviewed Verification: I have reviewed the TMS Court Collections Officer Note and agree with the contents. The patient remains a candidate to continue TMS treatment per protocol. Assessment and Plan (1) Major depressive disorder, recurrent severe without psychotic features: Status: Acute (2) OCD (obsessive compulsive disorder): Qualifiers: Obsessive-compulsive disorder type: other Qualified Code(s): F42.8 - Other obsessive-compulsive disorder Status: Acute (3) Anxiety, generalized: Status: Acute Plan Continues to tolerate treatment MT gradually increased no significant side effects noted
--- NOTE | 2024-11-26 16:02 | HO.TMSDAILY2 ---
TMS Daily Progress Note Daily TMS Progress Note Date of Service: 11/25/24 Week #: 1 Treatment #(12-16): 4 PHQ-9 Pre-Treatment (-): 18 PHQ-9 Most Recent (12-13): 15 GRACY-7 Pre-Treatment (0-21): 21 GRACY-7 Most Recent (0-21): 21 Reviewed: TMS Tech Note Reviewed Verification: I have reviewed the TMS Metal Extrusion Supervisor Note and agree with the contents. The patient remains a candidate to continue TMS treatment per protocol. Assessment and Plan (1) Major depressive disorder, recurrent severe without psychotic features: Status: Acute (2) OCD (obsessive compulsive disorder): Qualifiers: Obsessive-compulsive disorder type: other Qualified Code(s): F42.8 - Other obsessive-compulsive disorder Status: Acute (3) Anxiety, generalized: Status: Acute Plan Continues to tolerate treatment MT gradually increased no significant side effects noted MT increased to 95%
--- NOTE | 2024-11-29 17:24 | HO.TMSDAILY2 ---
TMS Daily Progress Note Daily TMS Progress Note Date of Service: 11/29/24 Week #: 2 Treatment #(-): 6 PHQ-9 Pre-Treatment (-): 18 PHQ-9 Most Recent (12-13): 13 GRACY-7 Pre-Treatment (0-21): 21 GRACY-7 Most Recent (0-21): 21 Q-LES-Q-SF Most Recent: q: 46 MT 1.45 Reviewed: TMS Tech Note Reviewed Verification: I have reviewed the TMS Systems Analyst Note and agree with the contents. The patient remains a candidate to continue TMS treatment per protocol. Assessment and Plan (1) Major depressive disorder, recurrent severe without psychotic features: Status: Acute (2) OCD (obsessive compulsive disorder): Qualifiers: Obsessive-compulsive disorder type: other Qualified Code(s): F42.8 - Other obsessive-compulsive disorder Status: Acute Plan continue TMS tcx plan
--- NOTE | 2024-12-02 16:36 | HO.TMSDAILY2 ---
TMS Daily Progress Note Daily TMS Progress Note Date of Service: 12/01/24 Week #: 2 Treatment #(-30): 7 PHQ-9 Pre-Treatment (1-): 18 PHQ-9 Most Recent (12-13): 13 GRACY-7 Pre-Treatment (0-21): 21 GRACY-7 Most Recent (0-21): 21 Q-LES-Q-SF Most Recent: q: 46 MT 1.45 Reviewed: TMS Tech Note Reviewed Verification: I have reviewed the TMS Gasoline Catalyst Operator Note and agree with the contents. The patient remains a candidate to continue TMS treatment per protocol.
--- NOTE | 2024-12-03 15:25 | HO.TMSDAILY2 ---
TMS Daily Progress Note Daily TMS Progress Note Date of Service: 12/03/24 Week #: 2 Treatment #(-): 9 PHQ-9 Pre-Treatment (-): 18 PHQ-9 Most Recent (12-13): 13 GRACY-7 Pre-Treatment (0-21): 21 GRACY-7 Most Recent (0-21): 21 CGI-I Most Recent: 3 = Minimally Improved Q-LES-Q-SF Most Recent: q: 46 MT 1.45 Reviewed: TMS Tech Note Reviewed Verification: I have reviewed the TMS Trust Vault Custodian Note and agree with the contents. The patient remains a candidate to continue TMS treatment per protocol. Assessment and Plan (1) Major depressive disorder, recurrent severe without psychotic features: Status: Acute (2) OCD (obsessive compulsive disorder): Qualifiers: Obsessive-compulsive disorder type: other Qualified Code(s): F42.8 - Other obsessive-compulsive disorder Status: Acute Plan continue TMS tx plan
--- NOTE | 2024-12-08 15:34 | HO.TMSDAILY2 ---
TMS Daily Progress Note Daily TMS Progress Note Date of Service: 12/07/24 Week #: 2 Treatment #(-): 9 PHQ-9 Pre-Treatment (-): 18 PHQ-9 Most Recent (12-13): 13 GRACY-7 Pre-Treatment (0-21): 21 GRACY-7 Most Recent (0-21): 21 CGI-I Most Recent: 3 = Minimally Improved Q-LES-Q-SF Most Recent: q: 46 MT 1.45 Reviewed: TMS Tech Note Reviewed Verification: I have reviewed the TMS Basket Machine Operator Note and agree with the contents. The patient remains a candidate to continue TMS treatment per protocol.
--- NOTE | 2024-12-10 18:27 | HO.TMSDAILY2 ---
TMS Daily Progress Note Daily TMS Progress Note Date of Service: 12/08/24 Week #: 2 Treatment #(-): 9 PHQ-9 Pre-Treatment (-): 18 PHQ-9 Most Recent (12-13): 13 GRACY-7 Pre-Treatment (0-21): 21 GRACY-7 Most Recent (0-21): 21 CGI-I Most Recent: 3 = Minimally Improved Q-LES-Q-SF Most Recent: q: 46 MT 1.45 Reviewed: TMS Tech Note Reviewed Verification: I have reviewed the TMS Net Application Architect Note and agree with the contents. The patient remains a candidate to continue TMS treatment per protocol. Assessment and Plan (1) Major depressive disorder, recurrent severe without psychotic features: Status: Acute (2) OCD (obsessive compulsive disorder): Qualifiers: Obsessive-compulsive disorder type: other Qualified Code(s): F42.8 - Other obsessive-compulsive disorder Status: Acute (3) Anxiety, generalized: Status: Acute Plan Continue TMS tx plan
--- NOTE | 2024-12-13 18:08 | HO.TMSDAILY2 ---
TMS Daily Progress Note Daily TMS Progress Note Date of Service: 12/13/24 Week #: 3 Treatment #(-30): 14 PHQ-9 Pre-Treatment (-): 18 PHQ-9 Most Recent (12-13): 12 GRACY-7 Pre-Treatment (0-): 21 GRACY-7 Most Recent (0-21): 21 Reviewed: TMS Tech Note Reviewed Verification: I have reviewed the TMS Sas Programmer Analyst Note and agree with the contents. The patient remains a candidate to continue TMS treatment per protocol. Assessment and Plan (1) Major depressive disorder, recurrent severe without psychotic features: Status: Acute (2) OCD (obsessive compulsive disorder): Qualifiers: Obsessive-compulsive disorder type: other Qualified Code(s): F42.8 - Other obsessive-compulsive disorder Status: Acute Plan cont plan of care tolerating l/r tx
--- NOTE | 2024-12-16 22:36 | HO.TMSDAILY2 ---
TMS Daily Progress Note Daily TMS Progress Note Date of Service: 12/15/24 Week #: 3 Treatment #(-): 15 PHQ-9 Pre-Treatment (1-): 18 PHQ-9 Most Recent (12-13): 12 GRACY-7 Pre-Treatment (0-21): 21 GRACY-7 Most Recent (0-21): 21 CGI-I Most Recent: 3 = Minimally Improved Q-LES-Q-SF Most Recent: q: 46 MT 1.45 Reviewed: TMS Tech Note Reviewed Verification: I have reviewed the TMS Last Inserter Note and agree with the contents. The patient remains a candidate to continue TMS treatment per protocol. Assessment and Plan (1) Major depressive disorder, recurrent severe without psychotic features: Status: Acute (2) Anxiety, generalized: Status: Acute (3) OCD (obsessive compulsive disorder): Qualifiers: Obsessive-compulsive disorder type: other Qualified Code(s): F42.8 - Other obsessive-compulsive disorder Status: Acute Plan cont plan of care tolerating tx has concerns regarding election and future
--- NOTE | 2024-12-26 20:35 | HO.TMSDAILY2 ---
TMS Daily Progress Note Daily TMS Progress Note Date of Service: 12/17/24 Week #: 4 Treatment #(-): 17 PHQ-9 Pre-Treatment (1-): 18 PHQ-9 Most Recent (12-13): 12 GRACY-7 Pre-Treatment (0-21): 21 GRACY-7 Most Recent (0-21): 21 CGI-I Most Recent: 3 = Minimally Improved Q-LES-Q-SF Most Recent: q: 46 MT 1.45 Reviewed: TMS Tech Note Reviewed Verification: I have reviewed the TMS Senior Sql Server Database Developer Note and agree with the contents. The patient remains a candidate to continue TMS treatment per protocol. Assessment and Plan (1) Major depressive disorder, recurrent severe without psychotic features: Status: Acute (2) Anxiety, generalized: Status: Acute Plan pt feeling better tolerating tx
--- NOTE | 2024-12-26 20:39 | HO.TMSDAILY2 ---
TMS Daily Progress Note Daily TMS Progress Note Date of Service: 12/20/24 Week #: 4 Treatment #(12-16): 18 PHQ-9 Pre-Treatment (-): 18 PHQ-9 Most Recent (12-13): 8 GRACY-7 Pre-Treatment (0-21): 21 GRACY-7 Most Recent (0-21): 21 CGI-I Most Recent: 3 = Minimally Improved Q-LES-Q-SF Most Recent: q: 46 MT 1.45 Reviewed: TMS Tech Note Reviewed Verification: I have reviewed the TMS Programmer Developer Note and agree with the contents. The patient remains a candidate to continue TMS treatment per protocol. Assessment and Plan (1) Major depressive disorder, recurrent severe without psychotic features: Status: Acute Plan pt showing clear improvement
--- NOTE | 2024-12-26 20:47 | HO.TMSDAILY2 ---
TMS Daily Progress Note Daily TMS Progress Note Date of Service: 12/21/24 Week #: 4 Treatment #(12-16): 19 PHQ-9 Pre-Treatment (-): 18 PHQ-9 Most Recent (12-13): 8 GRACY-7 Pre-Treatment (0-21): 21 GRACY-7 Most Recent (0-21): 21 CGI-I Most Recent: 3 = Minimally Improved Q-LES-Q-SF Most Recent: q: 46 MT 1.45 Reviewed: TMS Tech Note Reviewed Verification: I have reviewed the TMS Shipping Packer Note and agree with the contents. The patient remains a candidate to continue TMS treatment per protocol. Assessment and Plan (1) Major depressive disorder, recurrent severe without psychotic features: Status: Acute Plan pt glum foung out mother has recurrent ca continues to tolerate tx
--- NOTE | 2024-12-26 20:50 | P.PNPS_ITS ---
TMS Daily Progress Note Daily TMS Progress Note Date of Service: 12/22/24 Week #: 4 Treatment #(-): 20 PHQ-9 Pre-Treatment (-): 18 PHQ-9 Most Recent (12-13): 8 GRACY-7 Pre-Treatment (0-21): 21 GRACY-7 Most Recent (0-21): 21 CGI-I Most Recent: 3 = Minimally Improved Q-LES-Q-SF Most Recent: q: 46 MT 1.45 Reviewed: TMS Tech Note Reviewed Verification: I have reviewed the TMS Cattle Brander Note and agree with the contents. The patient remains a candidate to continue TMS treatment per protocol. Assessment and Plan (1) Major depressive disorder, recurrent severe without psychotic features: Status: Acute Plan cont plan of care
--- NOTE | 2024-12-31 14:22 | P.PNPS_ITS ---
TMS Daily Progress Note Daily TMS Progress Note Date of Service: 12/31/24 Week #: 3 Treatment #(-): 13 PHQ-9 Pre-Treatment (-): 18 PHQ-9 Most Recent (12-13): 11 GRACY-7 Pre-Treatment (0-21): 21 GRACY-7 Most Recent (0-21): 8 CGI-I Most Recent: 2 = Much Improved Q-LES-Q-SF Most Recent: q: 46 MT 1.45 Reviewed: TMS Tech Note Reviewed Verification: I have reviewed the TMS Asphalt Mixing Machine Operator Note and agree with the contents. The patient remains a candidate to continue TMS treatment per protocol. Assessment and Plan (1) Major depressive disorder, recurrent severe without psychotic features: Status: Acute (2) OCD (obsessive compulsive disorder): Qualifiers: Obsessive-compulsive disorder type: other Qualified Code(s): F42.8 - Other obsessive-compulsive disorder Status: Acute Plan continue TMS tx plan
--- NOTE | 2025-01-11 12:03 | HO.TMSDAILY2 ---
TMS Daily Progress Note Daily TMS Progress Note Date of Service: 01/11/25 Week #: 1 Treatment #(12-16): 5 PHQ-9 Pre-Treatment (-): 18 PHQ-9 Most Recent (12-13): 15 GRACY-7 Pre-Treatment (0-21): 21 GRACY-7 Most Recent (0-21): 21 CGI-I Most Recent: 4 = No Change Q-LES-Q-SF Most Recent: q: 46 MT 1.45 Reviewed: TMS Tech Note Reviewed Verification: I have reviewed the TMS Spiral Spring Winder Note and agree with the contents. The patient remains a candidate to continue TMS treatment per protocol. Assessment and Plan (1) Major depressive disorder, recurrent severe without psychotic features: Status: Acute (2) OCD (obsessive compulsive disorder): Qualifiers: Obsessive-compulsive disorder type: other Qualified Code(s): F42.8 - Other obsessive-compulsive disorder Status: Acute Plan continue tms tx plan
--- NOTE | 2025-01-11 12:09 | P.PNPS_ITS ---
TMS Daily Progress Note Daily TMS Progress Note Date of Service: 12/02/24 Week #: 2 Treatment #(12-16): 8 PHQ-9 Pre-Treatment (-): 18 PHQ-9 Most Recent (12-13): 13 GRACY-7 Pre-Treatment (0-21): 21 GRACY-7 Most Recent (0-21): 21 CGI-I Most Recent: 4 = No Change Q-LES-Q-SF Most Recent: q: 46 MT 1.45 Reviewed: TMS Tech Note Reviewed Verification: I have reviewed the TMS Workers Compensation Claims Supervisor Note and agree with the contents. The patient remains a candidate to continue TMS treatment per protocol. Assessment and Plan (1) OCD (obsessive compulsive disorder): Qualifiers: Obsessive-compulsive disorder type: other Qualified Code(s): F42.8 - Other obsessive-compulsive disorder Status: Acute (2) Major depressive disorder, recurrent severe without psychotic features: Status: Acute Plan continue tms tx plan
--- NOTE | 2025-01-11 12:10 | P.PNPS_ITS ---
TMS Daily Progress Note Daily TMS Progress Note Date of Service: 12/09/24 Week #: 3 Treatment #(-30): 12 PHQ-9 Pre-Treatment (-): 18 PHQ-9 Most Recent (12-13): 11 GRACY-7 Pre-Treatment (0-21): 21 GRACY-7 Most Recent (0-21): 8 Q-LES-Q-SF Most Recent: q: 46 MT 1.45 Reviewed: TMS Tech Note Reviewed Verification: I have reviewed the TMS Agricultural Research Technician Note and agree with the contents. The patient remains a candidate to continue TMS treatment per protocol. Assessment and Plan (1) OCD (obsessive compulsive disorder): Qualifiers: Obsessive-compulsive disorder type: other Qualified Code(s): F42.8 - O ther obsessive-compulsive disorder Status: Acute (2) Major depressive disorder, recurrent severe without psychotic features: Status: Acute Plan continue tms tx plan
--- NOTE | 2025-01-11 12:12 | HO.TMSDAILY2 ---
TMS Daily Progress Note Daily TMS Progress Note Date of Service: 12/10/24 Week #: 3 Treatment #(-): 13 PHQ-9 Pre-Treatment (-): 18 PHQ-9 Most Recent (12-13): 11 GRACY-7 Pre-Treatment (0-21): 21 GRACY-7 Most Recent (0-21): 8 CGI-I Most Recent: 2 = Much Improved Q-LES-Q-SF Most Recent: q: 46 MT 1.45 Reviewed: TMS Tech Note Reviewed Verification: I have reviewed the TMS Rail Transportation Tabeler Note and agree with the contents. The patient remains a candidate to continue TMS treatment per protocol. Assessment and Plan (1) OCD (obsessive compulsive disorder): Qualifiers: Obsessive-compulsive disorder type: other Qualified Code(s): F42.8 - Other obsessive-compulsive disorder Status: Acute (2) Major depressive disorder, recurrent severe without psychotic features: Status: Acute
--- NOTE | 2025-01-20 10:00 | P.PNPS_ITS ---
TMS Daily Progress Note Daily TMS Progress Note Date of Service: 12/27/24 Week #: 5 Treatment #(-): 21 PHQ-9 Pre-Treatment (-): 18 PHQ-9 Most Recent (12-13): 9 GRACY-7 Pre-Treatment (0-21): 21 GRACY-7 Most Recent (0-21): 8 CGI-I Most Recent: 2 = Much Improved Q-LES-Q-SF Most Recent: q: 46 MT 1.45 Reviewed: TMS Tech Note Reviewed Verification: I have reviewed the TMS Flatwork Tier Note and agree with the contents. The patient remains a candidate to continue TMS treatment per protocol. Assessment and Plan (1) Major depressive disorder, recurrent severe without psychotic features: Status: Acute (2) OCD (obsessive compulsive disorder): Qualifiers: Obsessive-compulsive disorder type: other Qualified Code(s): F42.8 - Other obsessive-compulsive disorder Status: Acute Plan Patient's PHQ-9 has decreased to 9 appears to be tolerating treatment MT% at 120
--- NOTE | 2025-01-20 10:03 | P.PNPS_ITS ---
TMS Daily Progress Note Daily TMS Progress Note Date of Service: 12/28/24 Week #: 5 Treatment #(-): 22 PHQ-9 Pre-Treatment (-): 18 PHQ-9 Most Recent (12-13): 9 GRACY-7 Pre-Treatment (0-21): 21 GRACY-7 Most Recent (0-21): 8 CGI-I Most Recent: 2 = Much Improved Q-LES-Q-SF Most Recent: q: 46 MT 1.45 Reviewed: TMS Tech Note Reviewed Verification: I have reviewed the TMS Tool Grinder Operator Note and agree with the contents. The patient remains a candidate to continue TMS treatment per protocol. Assessment and Plan (1) Major depressive disorder, recurrent severe without psychotic features: Status: Acute (2) OCD (obsessive compulsive disorder): Qualifiers: Obsessive-compulsive disorder type: other Qualified Code(s): F42.8 - Other obsessive-compulsive disorder Status: Acute Plan Patient's PHQ-9 has decreased to 9 appears to be tolerating treatment MT% at 120 Continues to have some intrusive OCD thoughts
--- NOTE | 2025-01-20 10:06 | P.PNPS_ITS ---
TMS Daily Progress Note Daily TMS Progress Note Date of Service: 12/29/24 Week #: 5 Treatment #(-): 23 PHQ-9 Pre-Treatment (-): 18 PHQ-9 Most Recent (12-13): 9 GRACY-7 Pre-Treatment (0-21): 21 GRACY-7 Most Recent (0-21): 8 CGI-I Most Recent: 2 = Much Improved Q-LES-Q-SF Most Recent: q: 46 MT 1.45 Reviewed: TMS Tech Note Reviewed Verification: I have reviewed the TMS School Transportation Supervisor Note and agree with the contents. The patient remains a candidate to continue TMS treatment per protocol. Assessment and Plan (1) Major depressive disorder, recurrent severe without psychotic features: Status: Acute (2) OCD (obsessive compulsive disorder): Qualifiers: Obsessive-compulsive disorder type: other Qualified Code(s): F42.8 - Other obsessive-compulsive disorder Status: Acute Plan Patient's PHQ-9 has decreased to 9 appears to be tolerating treatment MT% at 120 There are lot of life stressors which patient does continue to think about overall improved
--- NOTE | 2025-01-20 10:44 | P.PNPS_ITS ---
TMS Daily Progress Note Daily TMS Progress Note Date of Service: 12/30/24 Week #: 5 Treatment #(-): 24 PHQ-9 Pre-Treatment (-): 18 PHQ-9 Most Recent (12-13): 9 GRACY-7 Pre-Treatment (0-21): 21 GRACY-7 Most Recent (0-21): 8 CGI-I Most Recent: 2 = Much Improved Q-LES-Q-SF Most Recent: q: 46 MT 1.45 Reviewed: TMS Tech Note Reviewed Verification: I have reviewed the TMS Medical Driver Note and agree with the contents. The patient remains a candidate to continue TMS treatment per protocol. Assessment and Plan (1) Major depressive disorder, recurrent severe without psychotic features: Status: Acute Plan Patient generally doing better however if there is some significant work stress he has been asked to come into the office no longer working from home this is a big change and there are concerns regarding employment
--- NOTE | 2025-01-21 08:47 | HO.TMSDAILY2 ---
TMS Daily Progress Note Daily TMS Progress Note Date of Service: 12/31/24 Week #: 5 Treatment #(-): 25 PHQ-9 Pre-Treatment (-): 18 PHQ-9 Most Recent (12-13): 9 GRACY-7 Pre-Treatment (0-21): 21 GRACY-7 Most Recent (0-21): 8 CGI-I Most Recent: 2 = Much Improved Q-LES-Q-SF Most Recent: q: 46 MT 1.45 Reviewed: TMS Tech Note Reviewed Verification: I have reviewed the TMS Neurological Surgeon Note and agree with the contents. The patient remains a candidate to continue TMS treatment per protocol. Assessment and Plan (1) Major depressive disorder, recurrent severe without psychotic features: Status: Acute Plan Patient generally doing better menendez affect no c/o side effect
--- NOTE | 2025-01-21 09:00 | P.PNPS_ITS ---
TMS Daily Progress Note Daily TMS Progress Note Date of Service: 01/05/25 Week #: 6 Treatment #(-): 26 PHQ-9 Pre-Treatment (-): 18 PHQ-9 Most Recent (12-13): 9 GRACY-7 Pre-Treatment (0-21): 21 GRACY-7 Most Recent (0-21): 8 CGI-I Most Recent: 2 = Much Improved Q-LES-Q-SF Most Recent: q: 46 MT 1.45 Reviewed: TMS Tech Note Reviewed Verification: I have reviewed the TMS Occupational Therapy Supervisor Note and agree with the contents. The patient remains a candidate to continue TMS treatment per protocol. Assessment and Plan (1) Major depressive disorder, recurrent severe without psychotic features: Status: Acute Plan Patient generally doing better menendez affect no c/o side effect some ocd intrusive thoughts continue
--- NOTE | 2025-01-21 09:03 | P.PNPS_ITS ---
TMS Daily Progress Note Daily TMS Progress Note Date of Service: 01/06/25 Week #: 6 Treatment #(-): 27 PHQ-9 Pre-Treatment (1-): 18 PHQ-9 Most Recent (12-13): 9 GRACY-7 Pre-Treatment (0-21): 21 GRACY-7 Most Recent (0-21): 8 CGI-I Most Recent: 2 = Much Improved Q-LES-Q-SF Most Recent: q: 46 MT 1.45 Reviewed: TMS Tech Note Reviewed Verification: I have reviewed the TMS Flexographic Press Plate Setter Note and agree with the contents. The patient remains a candidate to continue TMS treatment per protocol. Assessment and Plan (1) Major depressive disorder, recurrent severe without psychotic features: Status: Acute Plan Patient continues to tolerate treatment improvement noted continue plan of care
--- NOTE | 2025-01-21 09:12 | P.PNPS_ITS ---
TMS Daily Progress Note Daily TMS Progress Note Date of Service: 01/07/25 Week #: 6 Treatment #(-): 28 PHQ-9 Pre-Treatment (-): 18 PHQ-9 Most Recent (12-13): 9 GRACY-7 Pre-Treatment (0-21): 21 GRACY-7 Most Recent (0-21): 8 CGI-I Most Recent: 2 = Much Improved Q-LES-Q-SF Most Recent: q: 46 MT 1.45 Reviewed: TMS Tech Note Reviewed Verification: I have reviewed the TMS Business Process Analyst Note and agree with the contents. The patient remains a candidate to continue TMS treatment per protocol. Assessment and Plan (1) Major depressive disorder, recurrent severe without psychotic features: Status: Acute Plan Patient continues with improvement tolerating left right treatment full affect noted
--- NOTE | 2025-01-21 09:15 | HO.TMSDAILY2 ---
TMS Daily Progress Note Daily TMS Progress Note Date of Service: 01/10/25 Week #: 6 Treatment #(-): 29 PHQ-9 Pre-Treatment (-): 18 PHQ-9 Most Recent (12-13): 9 GRACY-7 Pre-Treatment (0-21): 21 GRACY-7 Most Recent (0-21): 8 CGI-I Most Recent: 2 = Much Improved Q-LES-Q-SF Most Recent: q: 46 MT 1.45 Reviewed: TMS Tech Note Reviewed Verification: I have reviewed the TMS Solid Tire Tuber Machine Operator Note and agree with the contents. The patient remains a candidate to continue TMS treatment per protocol. Assessment and Plan (1) Major depressive disorder, recurrent severe without psychotic features: Status: Acute Plan Patient under some stress with his mother who being treated cancer and dealing with issues related to working for the [employer], but appears to be managing treatment continues to be helpful
--- NOTE | 2025-01-21 09:21 | P.PNPS_ITS ---
TMS Daily Progress Note Daily TMS Progress Note Date of Service: 01/14/25 Week #: 6 Treatment #(-): 30 PHQ-9 Pre-Treatment (-): 18 PHQ-9 Most Recent (12-13): 8 GRACY-7 Pre-Treatment (0-21): 21 GRACY-7 Most Recent (0-21): 8 CGI-I Most Recent: 2 = Much Improved Q-LES-Q-SF Most Recent: q: 46 MT 1.45 Reviewed: TMS Tech Note Reviewed Verification: I have reviewed the TMS Application Project Leader Note and agree with the contents. The patient remains a candidate to continue TMS treatment per protocol. Assessment and Plan (1) Major depressive disorder, recurrent severe without psychotic features: Status: Acute Plan Patient states he feels a lot better than before he started continues to have some intrusive thoughts no complaints of side effects
--- NOTE | 2025-01-21 09:23 | HO.TMSDAILY2 ---
TMS Daily Progress Note Daily TMS Progress Note Date of Service: 01/17/25 Week #: 7 Treatment #(-): 31 PHQ-9 Pre-Treatment (-): 18 PHQ-9 Most Recent (12-13): 8 GRACY-7 Pre-Treatment (0-21): 21 GRACY-7 Most Recent (0-21): 8 CGI-I Most Recent: 2 = Much Improved Q-LES-Q-SF Most Recent: q: 46 MT 1.45 Reviewed: TMS Tech Note Reviewed Verification: I have reviewed the TMS Digital Hardware Design Engineer Note and agree with the contents. The patient remains a candidate to continue TMS treatment per protocol. Assessment and Plan (1) Major depressive disorder, recurrent severe without psychotic features: Status: Acute Plan Patient generally doing well has some appropriate concerns regarding recent layoffs in the [employer]
--- NOTE | 2025-02-11 09:26 | HO.TMSDAILY2 ---
TMS Daily Progress Note Daily TMS Progress Note Date of Service: 01/21/25 Week #: 7 Treatment #(-): 32 PHQ-9 Pre-Treatment (-): 18 PHQ-9 Most Recent (12-13): 8 GRACY-7 Pre-Treatment (0-21): 21 GRACY-7 Most Recent (0-21): 8 CGI-I Most Recent: 2 = Much Improved Q-LES-Q-SF Most Recent: q: 46 MT 1.45 Reviewed: TMS Tech Note Reviewed Verification: I have reviewed the TMS Guest Associate Note and agree with the contents. The patient remains a candidate to continue TMS treatment per protocol. 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
--- NOTE | 2025-02-11 09:32 | P.PNPS_ITS ---
TMS Daily Progress Note Daily TMS Progress Note Date of Service: 01/24/25 Week #: 7 Treatment #(12-16): 33 PHQ-9 Pre-Treatment (-): 15 PHQ-9 Most Recent (12-13): 6 GRACY-7 Pre-Treatment (0-21): 21 GRACY-7 Most Recent (0-21): 8 CGI-I Most Recent: 2 = Much Improved Q-LES-Q-SF Most Recent: q: 46 MT 1.45 Reviewed: TMS Tech Note Reviewed Verification: I have reviewed the TMS Billet Driller Note and agree with the contents. The patient remains a candidate to continue TMS treatment per protocol. Assessment and Plan (1) Major depressive disorder, recurrent severe without psychotic features: Status: Acute (2) OCD (obsessive compulsive disorder): Qualifiers: Obsessive-compulsive disorder type: other Qualified Code(s): F42.8 - Other obsessive-compulsive disorder Status: Acute Plan mood improved much decreased anxiety
--- NOTE | 2025-02-11 09:35 | HO.TMSDAILY2 ---
TMS Daily Progress Note Daily TMS Progress Note Date of Service: 01/26/25 Week #: 8 Treatment #(12-16): 34 PHQ-9 Pre-Treatment (-): 15 PHQ-9 Most Recent (12-13): 6 GRACY-7 Pre-Treatment (0-21): 21 GRACY-7 Most Recent (0-21): 8 CGI-I Most Recent: 2 = Much Improved Q-LES-Q-SF Most Recent: q: 46 MT 1.45 Reviewed: TMS Tech Note Reviewed Verification: I have reviewed the TMS Bag Tester Note and agree with the contents. The patient remains a candidate to continue TMS treatment per protocol. Assessment and Plan (1) Major depressive disorder, recurrent severe without psychotic features: Status: Acute (2) OCD (obsessive compulsive disorder): Qualifiers: Obsessive-compulsive disorder type: other Qualified Code(s): F42.8 - Other obsessive-compulsive disorder Status: Acute Plan mood improved much decreased anxiety no c/o side effects appropriate worry re work
--- NOTE | 2025-02-11 09:36 | HO.TMSDAILY2 ---
TMS Daily Progress Note Daily TMS Progress Note Date of Service: 01/28/25 Week #: 8 Treatment #(12-16): 35 PHQ-9 Pre-Treatment (-): 15 PHQ-9 Most Recent (12-13): 6 GRACY-7 Pre-Treatment (0-21): 21 GRACY-7 Most Recent (0-21): 8 CGI-I Most Recent: 2 = Much Improved Q-LES-Q-SF Most Recent: q: 46 MT 1.45 Reviewed: TMS Tech Note Reviewed Verification: I have reviewed the TMS Directional Survey Drafter Note and agree with the contents. The patient remains a candidate to continue TMS treatment per protocol. Assessment and Plan (1) Major depressive disorder, recurrent severe without psychotic features: Status: Acute (2) OCD (obsessive compulsive disorder): Qualifiers: Obsessive-compulsive disorder type: other Qualified Code(s): F42.8 - Other obsessive-compulsive disorder Status: Acute Plan mood improved much decreased anxiety no c/o side effects appropriate worry re work. Asking about maintenance tx
--- NOTE | 2025-02-11 09:39 | P.PNPS_ITS ---
TMS Daily Progress Note Daily TMS Progress Note Date of Service: 01/31/25 Week #: 8 Treatment #(12-16): 36 PHQ-9 Pre-Treatment (-): 15 PHQ-9 Most Recent (12-13): 6 GRACY-7 Pre-Treatment (0-21): 21 GRACY-7 Most Recent (0-21): 8 CGI-I Most Recent: 2 = Much Improved Q-LES-Q-SF Most Recent: q: 46 MT 1.45 Reviewed: TMS Tech Note Reviewed Verification: I have reviewed the TMS Social Security Assessor Note and agree with the contents. The patient remains a candidate to continue TMS treatment per protocol. Assessment and Plan (1) Major depressive disorder, recurrent severe without psychotic features: Status: Acute (2) OCD (obsessive compulsive disorder): Qualifiers: Obsessive-compulsive disorder type: other Qualified Code(s): F42.8 - Other obsessive-compulsive disorder Status: Acute Plan mood improved much decreased anxiety no c/o side effects appropriate worry re work. Asking about maintenance tx has last tx today . Much improved.
== END 2025-01-31 13:00 | disposition home or self-care (01) ==
LOC: HO.PTMS 12:00
PROVIDERS: Visit Provider Clinical Nurse Specialist Psychiatric/Mental Health
DX: F33.2 Major depressive disorder, recurrent severe without psychotic features (principal); F42.8 Other obsessive-compulsive disorder; F41.1 Generalized anxiety disorder
CPT/HCPCS: 90867; 90868

== ENCOUNTER 2025-07-29 10:17 | Outpatient (AMB) | payer OTHER, SELFPAY ==
--- NOTE | 2025-07-29 10:18 | A.OFFVIS_ITS ---
Vital Signs 07/29/25 10:26 Height 5 ft 6 in Weight 245 lb BMI 39.5 BP 138/74 Blood Pressure Location Rt brachial Position Sitting Pulse 74 Pulse Source Pulse Oximeter Pulse Oximetry (%) 98 Oxygen Delivery Method Room Air Intake Visit Reasons: F/u last seen 01/26/25 r/s 06/10 Intake Note: Est pt for mgmt of chronic abd pain + constipation. CC: C.O. bloating, gas, constipation, hematochezia, intermittent episodes. No additional concerns reported per pt. Commissions Specialist Required: No Accompanied by: Self / Same As Patient Allergies No Known Allergies (No Known Allergies*) Allergy (Verified 01/26/25 14:37) HPI HPI F/u last seen 01/26/25 r/s 06/10: Details: LAST VISIT: Diverticulosis History of colostomy reversal 09/2022 Due for repeat colonoscopy due to history of adenomas and none retrieved polyp History of diverticulitis of colon Postprandial abdominal bloating Constipation Plan Patient is due to go for colonoscopy as in the past he had history of tubular adenoma as well as 1 of the polyps were not retrieved. Patient is not moving his bowels well, reports that he is taking [id number] fiber supplements. He can start taking senna. Patient reports that he is on pantoprazole and doing well. Takes it as needed. Will re-evaluate and if need might be sent for endoscopy pending symptoms. Discussed with patient avoiding dietary triggers and late night snacking. Staying upright for minimum 3 hours after meals discussed with patient. Increase fluid intake and activity to promote better bowel motility. Discussed with patient low FODMAP diet. List of food recommended as well as list of food to avoid given to patient. I will see him in 5 weeks, sooner on as needed basis. Patient will call our office if he will have any GI concerning symptoms. He is agreeable to this plan and verbalizes understanding of instructions. He was given the opportunity to ask questions and all questions answered. ? Thank you for allowing me to participate in his care New sennosides (Natural Senna Laxative) 17.2 mg (2 x 8.6 mg) PO BEDTIME 60 tabs 3RF constipation TODAY'S VISIT: Patient is here today for follow-up and to discuss going for colonoscopy. No change since last visit. Patient denies having any issues with anesthesia in the past. He is moving his bowels better, however he feels like he is straining when he has a bowel movement. Patient reports small amount of blood after a bowel movement when wiping. He reports feeling more gassy and bloated lately. Does not feel like he empties his bowels completely. Patient is trying to eat better. Denies any issues with anesthesia in the past. No history of sleep apnea. Not on any anticoagulation medication. Patient denies any cardiac or respiratory symptoms. [facility] Medical History Chest pain Hospital discharge follow-up Acute diverticulitis Abdominal pain Morbid obesity due to excess calories Establishing care with new doctor, encounter for Sleep apnea IBS (irritable bowel syndrome) Anxiety GERD (gastroesophageal reflux disease) Surgical History History of colostomy reversal Hx of colectomy Hx of colonoscopy History of medial meniscus repair of left knee History of tonsillectomy and adenoidectomy Family History Father History of heart disease Mother History of lung cancer Hx of breast cancer History of skin cancer Social History Household Members: Family Household Members Other:: 2 kids Housing: House Are you a primary manager of care to a significant other at home: No Do you presently have visiting nurse or other home services: No Alcohol intake: current Alcohol intake frequency: holidays/special occasions only Patient Tobacco Use Status: Never used Tobacco service: Yes Current occupational status: employed Current occupation: [employer]- Physical Exam Vital Signs: Last Vital Signs Pulse 74 07/29/25 10:26 BP 138/74 07/29/25 10:26 Pulse Ox 98 07/29/25 10:26 Oxygen Delivery Method Room Air 07/29/25 10:26 BMI result Body Mass Index 39.5 Assessment & Plan Assessment & Plan (1) Diverticulosis: Code(s): K57.90 - Diverticulosis of intestine, part unspecified, without perforation or abscess without bleeding Category: Medical (2) History of colostomy reversal: Code(s): Z98.890 - Other specified postprocedural states Category: Surgical (3) History of diverticulitis of colon: Code(s): Z87.19 - Personal history of other diseases of the digestive system (4) Postprandial abdominal bloating: Code(s): R14.0 - Abdominal distension (gaseous) (5) Constipation: Code(s): K59.00 - Constipation, unspecified Qualifiers: Constipation type: slow transit constipation Qualified Code(s): K59.01 - Slow transit constipation Plan Patient was encouraged to take stool softener. He will have split MiraLax prep and Dulcolax. Patient was encouraged to take extra Dulcolax few days before procedure to empty his bowels better. What to expect before during and after procedure discussed with patient. Stressed importance of good bowel prep on clear liquid diet day before procedure. I will see him after the procedure, sooner on as needed basis. He is agreeable to this plan and verbalizes understanding of instructions. He was given the opportunity to ask questions and all questions answered. Thank you for allowing me to participate in his care Medications: New bisacodyl (Dulcolax (bisacodyl)) 10 mg (2 x 5 mg) PO BEDTIME 180 tabs 4RF docusate sodium 100 mg PO BEDTIME 90 caps 3RF K59.00 - Constipation, unspecified polyethylene glycol 3350 (Miralax) As directed by gastroenterology department at [facility] 238 grams PO ONCE 238 grams 0RF Z12.11 - Encounter for screening for malignant neoplasm of colon Coding Level of Care Code Est Pt Level 4 (11810) Diagnoses Diverticulosis K57.90 History of colostomy reversal Z98.890 History of diverticulitis of colon Z87.19 Postprandial abdominal bloating R14.0 Slow transit constipation K59.01 Constipation type: slow transit constipation Time Spent (min) 40 Comment 25 minutes spent with patient and additional 15 minutes spent reviewing his records
[2025-07-29 10:26] VITALS: BP 138/74; PULSE 74; O2SAT 98; BMI 39.5
--- OUTSIDE RECORDS SUMMARY | 2025-07-29 11:42 | XMS_ITS | Clinical Summary ---
Author Organization [address] [place] [address] [place] [id number] Phone Care Team Providers Care Asset Specialist Name Role Phone Unavailable Primary Care Provider [...] series) 2002 Cholesterol Screening (Lipid Panel) 10/26/2022 HIV Screening 10/26/2022 Hepatitis C Screening 10/26/2022 Social Influencers of Health Screening 10/26/2022 Depression Screening 11/17/2024 COVID-19 Vaccine ( - 2023-2 5 season) 2025 Influenza Vaccine (#1) 2025 HIB Vaccines Aged Out No longer eligi [...] age to complete this topic Meningococcal B Vaccine Aged Out No l onger eligible based on patient's age to complete this topic Pneumococcal Vaccine: Pediat rics (0 to 5 Years) and At-Risk Patients (6 to 49 Years) Aged Out No longer eligible b ased on patient's age to complete this topic RSV Immunization Patients Un godfrey 20 months Aged Out No longer eligible b ased on patient's age to complete this topic Varicella Vaccines Aged Out No longer eligible based on patient's age to complete this topic Insurance
== END 2025-07-29 11:08 | disposition home or self-care (01) ==
PROVIDERS: PCP Family Medicine; Visit Provider Nurse Practitioner Family
DX: K57.90 Diverticulosis of intestine, part unspecified, without perforation or abscess without bleeding (principal); Z98.890 Other specified postprocedural states; Z87.19 Personal history of other diseases of the digestive system; R14.0 Abdominal distension (gaseous); K59.01 Slow transit constipation
CPT/HCPCS: 99214

== ENCOUNTER → 2025-07-29 10:17 | Outpatient (BNVA) | payer OTHER, SELFPAY | PROVIDERS: Visit Provider Nurse Practitioner Family | DX: K59.01 Slow transit constipation (principal); K57.90 Diverticulosis of intestine, part unspecified, without perforation or abscess without bleeding; R14.0 Abdominal distension (gaseous); Z87.19 Personal history of other diseases of the digestive system | CPT/HCPCS: 99212 ==